=== PATIENT | female | born 1955 | race Caucasian/White ===

== ENCOUNTER 2023-03-05 13:33 | Outpatient (CLI) | payer MEDICARE, SELFPAY ==
--- NOTE | ~2023-03-05 | MR_ITS ---
EXAMINATION: MR brain/brain stem wo/w con DATE: 03/05/2023 14:25 INDICATION: Syncope. TECHNIQUE: Magnetic resonance imaging (MRI) of the brain and brainstem was performed without and with 18 mL MultiHance intravenous contrast. COMPARISON: Brain MRI 12/27/2017 FINDINGS: There is no intracranial hemorrhage, acute infarction, or abnormal intracranial mass lesion . The ventricles are normal in size. The orbits are normal. The paranasal sinuses are clear. There i s a small left mastoid effusion. IMPRESSION: 1. Normal brain. Reviewed, dictated and finalized at location E. IMPRESSION: 1. Normal brain.
--- NOTE | ~2023-03-05 | US_ITS ---
EXAMINATION: US carotid duplex BI DATE: 03/05/2023 14:51 INDICATION: Syncope and collapse TECHNIQUE: Grayscale, color Doppler, and pulsed Doppler images of the cervical carotid arteries were obtained. The degree of vessel stenosis is placed in one of the following categories: normal, <50%, 5 0-69%, >=70% but less than near-occlusion, near-occlusion, or total occlusion. Note that percent sten osis relative to normal distal artery lumen diameter is indirectly measured from velocity measurement s as described by Felipe, et al. Radiology 2003; 229:340-346. COMPARISON: None. FINDINGS: RIGHT: The right common carotid artery (CCA) peak systolic velocity (PSV) is 144 cm/s. The right internal ca rotid artery (ICA) PSV is 117 cm/s. The right ICA end-diastolic velocity (EDV) is 46 cm/s. The right ICA/CCA PSV ratio is 0.8. Grayscale and color Doppler images yield an estimate of <50% diameter reduc tion from plaque in the ICA. The external carotid artery (ECA) PSV is 95 cm/s. There is antegrade mario w in the right vertebral artery. LEFT: The left CCA PSV is 112 cm/s. The left ICA PSV is 122 cm/s. The left ICA EDV is 45 cm/s. The left ICA /CCA PSV ratio is 1.1. Grayscale and color Doppler images yield an estimate of <50% diameter reductio n from plaque in the ICA. The ECA PSV is 99 cm/s. There is antegrade flow in the left vertebral arter y. IMPRESSION: 1. <50% stenosis in the right internal carotid artery. 2. <50% stenosis in the left internal carotid artery. Reviewed, dictated and finalized at location A.
== END 2023-03-05 13:34 | disposition home or self-care (01) ==
PROVIDERS: PCP Family Medicine; Visit Provider Family Medicine
DX: R55 Syncope and collapse (principal); I65.23 Occlusion and stenosis of bilateral carotid arteries
CPT/HCPCS: 70553; 93880; A9577

== ENCOUNTER 2023-03-12 13:34 | Outpatient (CLI) | payer MEDICARE, SELFPAY ==
--- NOTE | 2023-03-12 13:42 | ECG_ITS ---
Measurements Intervals [place] Rate: 55 P: 61 LA: 161 QRS: 10 QRSD: 82 T: 20 QT: 408 QTc: 393 Interpretive Statements SINUS BRADYCARDIA BASELINE WANDER- III BORDERLINE ECG COMPARED TO ECG 11/06/2019 14:26:40 SINUS BRADYCARDIA NOW PRESENT Electronically Signed On 03-12-2023 14:22:22 CDT by Odell Gandhi D.O.
== END 2023-03-12 13:35 | disposition home or self-care (01) ==
LOC: ANHCARD 13:37
PROVIDERS: PCP Family Medicine; Visit Provider Family Medicine
DX: R55 Syncope and collapse (principal); R94.31 Abnormal electrocardiogram [ECG] [EKG]
CPT/HCPCS: 93005

== ENCOUNTER 2024-02-23 16:03 | Emergency (ER) | payer MEDICARE, SELFPAY ==
--- NOTE | ~2024-02-23 | XR_ITS ---
EXAMINATION: XR ankle LT min 3V DATE: 02/23/2024 17:10 INDICATION: Medial and posterior left ankle pain. TECHNIQUE: 4 views of left ankle were obtained. COMPARISON: None. FINDINGS: There is a transverse fracture of medial malleolus. The distal fracture fragment demonstrat es 2 mm lateral displacement. There is an oblique fracture of distal fibula with medial aspect of the fracture line at the level of the tibial plafond. The distal fracture fragment demonstrates 3 mm pos terior displacement. There is a fracture of posterior malleolus with 1 mm proximal displacement of th e posterior fracture fragment. There is mild midfoot osteoarthritis. There is enthesophytes at the po sterior and plantar aspects of calcaneal tuberosity. Ankle soft tissue swelling is noted. IMPRESSION: 1. Trimalleolar ankle fracture. Reviewed, dictated and finalized at location E.
[2024-02-23 16:16] VITALS: BP 128/75; PULSE 65; RESP 16; TEMP 36.6; O2SAT 97
--- NOTE | 2024-02-23 16:44 | ED.FALL ---
HPI - Fall General Chief Complaint: Fall Stated Complaint: fall Time Seen by Provider: 02/23/24 16:44 Focused HPI: Kristen is a 68-year-old female patient presenting to the emergency room today with complaints of left ankle pain. She reports she fell and twisted her left ankle. Is reporting the pain to the medial and posterior left ankle. Denies hitting her head or any loss of consciousness. General: Well-developed, obese, in no apparent distress Head: Normocephalic, atraumatic. Cardio: Regular rate and rhythm, s1 and s2 normal, no murmur appreciated. Resp: Clear to auscultation bilaterally, no rhonchi, rales, wheezing or rubs. Musculoskeletal: No deformity, tender to palpation over the posterior and medial ankle, pain with valgus and varus testing, pain with plantar flexion and dorsal flexion, limited range of motion due to pain, mild-moderate swelling when compared to the right, muscle strength strong and equal, peripheral pulse strong, no cyanosis, sitting in a wheelchair Patient screened in triage and initial orders placed. Additional care and disposition to be based upon diagnostic testing and treatment. Source: patient Mode of arrival: ambulatory Limitations: no limitations Related Data Home Medications Medication Instructions Recorded Confirmed hydrocodone 5 mg-acetaminophen 300 1 tablet PO BID PRN 09/11/19 11/23/23 mg tablet cetirizine 10 mg capsule (Zyrtec) 10 mg PO DAILY PRN 02/18/23 11/23/23 acamprosate 333 mg tablet,delayed 333 mg PO TID 11/23/23 11/23/23 release duloxetine 30 mg capsule,delayed 30 mg PO DAILY 11/23/23 11/23/23 release gabapentin 300 mg capsule 300 mg PO TID 11/23/23 11/23/23 omega 0-hat-szt-fish oil 1,000 mg 1 cap PO DAILY 11/23/23 11/23/23 (120 mg-180 mg) capsule (Fish Oil) Allergies Allergy/AdvReac Type Severity Reaction Status Date / Time Penicillins Allergy Unknown HIVES Verified 02/23/24 16:19 Review of Systems Review of Systems: Pertinent positives per HPI. Patient denies any fever, chills, rash, headache, visual changes, dizziness, cough, runny nose, sore throat, shortness of breath, chest pain, palpitations, nausea, vomiting, diarrhea, constipation, abdominal pain, or any urinary issues. [facility] Past Medical History Medical History Asthma Cholelithiases HTN (hypertension) Hypothyroid Obesity Renal calculus or stone Rosacea Vitamin D deficiency Surgical History Surgical History H/O gastric bypass H/O: hysterectomy Family History Family History Father Cerebrovascular accident, Onset Age: 79 Patient's father is , Onset Age: 79 Mother Family history of heart disease in male family member before age 55, Onset Age: 87 Social History Social History Smoking packs per day: 2 Smoking cigarettes per day: 40.0 Years smoked: 30 Smoking pack-years: 60.00 Smoking status: Former smoker Second hand tobacco smoke exposure: No Smoking end date: 11/08/11 Alcohol intake: current Alcohol use details: rare Substance use: never Substance use type: does not use Do You Feel Safe in your Home?: Yes Lack of Transportation: No Lack of Food: Never True Current Housing: I Have Housing Concerned About Future Housing: No Difficulty Paying Gas/Electric Bills: No Difficulty Paying for Meds: No Currently Unemployed: No Education: High School Diploma/GED Difficulty w/ Childcare or Family Care: No Living arrangements: with family Occupation/Education: retired Gender identity (if verbalized by the patient): Female Sexual Orientation (if Verbalized by the Patient): Straight or Heterosexual Spiritual care concerns: No Agree to blood products: Yes Comments At the dayron
[2024-02-23 17:40] VITALS: BP 139/85; PULSE 71; RESP 15; TEMP 36.8; O2SAT 99
--- NOTE | 2024-02-23 18:17 | PC.NURSE ---
after splint application pt attempted walking with a walker and NOT bearing any weight. pt did this very well without assistance
[2024-02-23 18:55] VITALS: BP 138/86; PULSE 71; RESP 19; TEMP 36.8; O2SAT 99
== END 2024-02-23 18:55 | disposition home or self-care (01) ==
PROVIDERS: Emergency Provider Nurse Practitioner Family; PCP Family Medicine
DX: S82.852A Displaced trimalleolar fracture of left lower leg, initial encounter for closed fracture (principal); J45.909 Unspecified asthma, uncomplicated; I10 Essential (primary) hypertension; E03.9 Hypothyroidism, unspecified; E66.9 Obesity, unspecified; Z68.33 Body mass index [BMI] 33.0-33.9, adult; Z87.442 Personal history of urinary calculi; Z98.84 Bariatric surgery status; Z87.891 Personal history of nicotine dependence; Z90.710 Acquired absence of both cervix and uterus; W19.XXXA Unspecified fall, initial encounter; X50.9XXA Other and unspecified overexertion or strenuous movements or postures, initial encounter
CPT/HCPCS: 29515; 73610; 99284

== ENCOUNTER 2024-02-28 08:25 | Outpatient (CLI) | payer MEDICARE, SELFPAY ==
[2024-02-28 09:18] LABS: Anion Gap 3 mmol/L (4-12); Blood Urea Nitrogen 20 mg/dL (7-17); Carbon Dioxide 31 mmol/L (22-30); Chloride 100 mmol/L (98-107); Estimated Glomerular Filt Rate > 60; Glucose 99 mg/dL (65-110); Potassium 4.1 mmol/L (3.4-5.0); Sodium 134 mmol/L (137-145)
== END 2024-02-28 08:26 | disposition home or self-care (01) ==
PROVIDERS: Anesthesiology; PCP Family Medicine; Visit Provider Orthopaedic Surgery
DX: Z01.818 Encounter for other preprocedural examination (principal); Z79.899 Other long term (current) drug therapy
CPT/HCPCS: 36415; 80048

== ENCOUNTER 2024-03-02 00:32 | Day surgery (SDC) | payer MEDICARE, SELFPAY ==
[2024-02-24 14:01] VITALS: BMI 32.6
--- NOTE | 2024-02-24 14:18 | PC.NURSE ---
PRE-OP INSTRUCTIONS, PLEASE READ CAREFULLY Report to the Outpatient Waiting Room, entrance under the green pavilion located off [facility], at time _0600_ on date _03/02/24_. Planned Procedure Time: _0730_. Time changes happen often and if your time is changed the preop area will call you the afternoon before. - You and your visitor will be asked to self-screen and do not enter if you have any COVID symptoms. - A mask is optional within the hospital at this time. Patients may have clear liquids (water, carbonated beverages, clear teas, apple juice) until 3 hours prior to surgery (0430 AM) with a maximum of 20 ounces. - No food from midnight until time of surgery Take the following medications with a SIP of water the morning of surgery: _ESCITALOPRAM, GABAPENTIN, LEVOTHYROXINE, SYMBICORT INHALER, & RESCUE INHALER, PAIN PILL IF NEEDED_ DO NOT STOP ANY OF YOUR OTHER PRESCRIPTION MEDICATIONS PRIOR TO SURGERY ?EXCEPT THE FOLLOWING Medications to discontinue per DR. CROW - _IBUPROFEN OF NOW, Date to take last dose 02/23/25_ Medications to discontinue per ANESTHESIA -_VITAMINS/SUPPLEMENTS 3 DAYS PRIOR TO SURGERY, Date to take last dose 02/27/24_ Please no make-up, nail frisian, hairspray, perfume, deodorant, or body powder the day of surgery. No jewelry (including any body piercings) or valuables the day of surgery, leave them at home. Please take a shower or bath the night before, or the morning of, surgery with an antibacterial soap. Wear comfortable, loose fitting clothing. - Jewelry must be removed prior to entering the operating room. Rings and piercings that are not removed may be cut off. - The hospital will not accept responsibility for valuables. - Please leave all valuables, including medications, at home the day of surgery. If you are going home after surgery, a licensed armored car guard and driver must drive you home. - NO public transportation without another adult if you receive anesthesia. - We recommend that an adult stay with you for 24 hours following discharge. - We also recommend that you do not drive, make important decision, drink alcoholic beverages, or take any drugs that were not prescribed by your health care provider for at least 24 hours after your discharge time. Follow any additional instructions given to you from your surgeon. If you or anyone in your household have experienced Covid symptoms in the past week, please notify your surgeon or the nurse liaison at the phone number below for possible testing. Telephone instructions given to _PATIENT_and asked if any additional questions and then verbalized understanding. Patient advised to call surgeon office or pre surgery nurse liaison [phone] if any additional questions.
--- NOTE | 2024-03-01 16:32 | PM.IMHP ---
H&P: HPI History of Present Illness Date/Time: 03/01/24 16:32 Chief Complaint: displaced left trimalleolar ankle fracture Narrative: patient is a 68-year-old female who fell twisting her ankle suspect sustaining a mildly displaced trimalleolar ankle fracture with a long Benites B type lateral malleolus fracture with comminution that extends several inches proximal to the level of the tibial plafond and a small posterior malleolus fragment minimally displaced in a mildly displaced anterior colliculus medial malleolus fracture. Her date of injury was on 02/23/2024. Her past medical history is significant for asthma. Quit smoking 15 years ago. History of gastric bypass. She uses ibuprofen occasionally. She chronically uses hydrocodone for upper back and fibromyalgia pain. Two years ago she underwent a syncope workup. She had fainting episodes the last time 16 months ago. She had cardiac monitoring which was negative and has a history of a prior cardiac stress test prior to that and was evaluated by Dr. Gandhi patient was felt not to have significant cardiac disease. She also had an MRI scan of her brain as well as carotid ultrasound both of which were unremarkable in February 2023. Patient has no personal or family history of pulmonary embolism. Review of Systems Review of Systems: On examination she was alert and oriented pleasant female in no acute distress. Heart and lung auscultation will be documented on Day. She had intact light touch sensation but reported the slight tingling sensation on the dorsum of her foot as well as in the toes. She was able to wiggle her toes she has normal capillary refill. She had no tenderness the proximal calf and denied any other injury. She was 5 ft 4 in in height 190 lb BMI of 32.5. That was her reported height and weight. [facility] Past Medical History Medical History (Updated 02/26/24 @ 14:14 by Bernard Jean MD) Asthma Cholelithiases HTN (hypertension) Hypothyroid Obesity Renal calculus or stone Rosacea Vitamin D deficiency Surgical History Surgical History (Updated 02/25/24 @ 09:45 by Cassie Rick CMA) H/O gastric bypass H/O: hysterectomy History of appendectomy History of History of cholecystectomy History of mandibular surgery History of skin surgery Family History Family History Father Cerebrovascular accident, Onset Age: 79 Patient's father is , Onset Age: 79 Mother Family history of heart disease in male family member before age 55, Onset Age: 87 Social History Social History Smoking packs per day: 2 Smoking cigarettes per day: 40.0 Years smoked: 40 Smoking pack-years: 80.00 Smoking status: Former smoker Tobacco type: cigarettes Second hand tobacco smoke exposure: No Smoking end date: 11/08/11 Alcohol intake: current Alcohol use details: 6 BEERS, BOTTLE WINE/WEEK Substance use: never Substance use type: does not use Do You Feel Safe in your Home?: Yes Lack of Transportation: No Lack of Food: Never True Current Housing: I Have Housing Concerned About Future Housing: No Difficulty Paying Gas/Electric Bills: No Difficulty Paying for Meds: No Currently Unemployed: No Education: High School Diploma/GED Difficulty w/ Childcare or Family Care: No Living arrangements: with family Occupation/Education: retired Gender identity (if verbalized by the patient): Female Sexual Orientation (if Verbalized by the Patient): Straight or Heterosexual Spiritual care concerns: No Agree to blood products: Yes Meds Home Medications and Allergies Home Medications Medication Instructions Recorded Confirmed Type fluticasone propionate 50 2 spray intranasal DAILY #54.6 mL 11/22/19 02/26/24 Rx mcg/actuation nasal spray,suspension escitalo
[2024-03-02] VITALS (18 sets, daily range): BP systolic 103–134; BP diastolic 50–95; PULSE 64–86; RESP 14–20; TEMP 36–36.9; O2SAT 94–100
--- NOTE | ~2024-03-02 | XR_ITS ---
XR surgery orthopedic Indication: Intraoperative fixation of bimalleolar fracture with fibular sideplate and screws TECHNIQUE: Fluoroscopy used during Intraoperative fixation of bimalleolar fracture with fibular side plate and screws performed by [Bernard Jean MD] on 03/02/2024. 85 seconds of fluoroscopy with 5 fluoroscopic images captured. FINDINGS: Correlate with procedure note. IMPRESSION: Fluoroscopy used during Intraoperative fixation of bimalleolar fracture with fibular side plate and screws. Fracture fragments in anatomic alignment post reduction. Reviewed, dictated and finalized at location B. IMPRESSION: Fluoroscopy used during Intraoperative fixation of bimalleolar frac ture with fibular sideplate and screws. Fracture fragments in anatomic alignmen t post reduction.
--- NOTE | 2024-03-02 06:57 | WPDANESEPPF ---
Anes - Initial Pre Proc Eval Procedure: Operation Date: 03/02/24 07:30 Proposed Procedures p Open Reduction Internal Fixation of Left Trimalleolar Ankle Fracture - Bernard Jean MD Date/Time: 03/02/24 06:57 Surgeon: Bernard Jean MD Pre Op Diagnosis: left trimalleolar ankle fracture Patient Data Age: 68 Gender: F Height: 1.63 m Weight: 92 kg Allergies Allergy/AdvReac Type Severity Reaction Status Date / Time Penicillins Allergy Unknown HIVES Verified 02/25/24 09:42 Home Medications Medication Instructions Recorded Confirmed Type fluticasone propionate 50 2 spray intranasal DAILY #54.6 mL 11/22/19 02/26/24 Rx mcg/actuation nasal spray,suspension escitalopram oxalate 20 mg tablet 20 mg PO DAILY #30 tabs 06/30/22 03/02/24 Rx albuterol sulfate 90 mcg/actuation 1 puff inhalation Q4H PRN 02/18/23 02/26/24 Rx aerosol inhaler (ProAir HFA) shortness of breath or wheezing #54 grams budesonide-formoterol HFA 160 2 puff inhalation Q12H #1 device 02/18/23 03/02/24 Rx mcg-4.5 mcg/actuation aerosol inhaler (Symbicort) cetirizine 10 mg capsule (Zyrtec) 10 mg PO DAILY PRN Congestion 02/18/23 02/26/24 History thiamine HCl (vitamin B1) 100 mg 100 mg PO DAILY #90 tabs 02/18/23 02/26/24 Rx tablet losartan 25 mg tablet See Rx Instructions .Route 09/05/23 03/02/24 Rx .COMPLEX #90 tabs triamterene 37.5 1 cap PO DAILY #90 caps 10/12/23 02/26/24 Rx mg-hydrochlorothiazide 25 mg capsule levothyroxine 150 mcg tablet 150 mcg PO DAILY #30 tabs 11/14/23 03/02/24 Rx duloxetine 30 mg capsule,delayed 30 mg PO DAILY 11/23/23 02/26/24 History release gabapentin 300 mg capsule 600 mg PO TID 11/23/23 03/02/24 History acetaminophen 500 mg tablet 500 mg PO QID PRN Pain 02/24/24 02/26/24 History hydrocodone 7.5 mg-acetaminophen 1 tablet TID PRN Pain 02/24/24 03/02/24 History 325 mg tablet ibuprofen 200 mg tablet 800 mg PO Q6H PRN Pain 02/24/24 02/26/24 History Patient hx anesthesia problems: none Family hx anesthesia problems: none Results Review: All pre-operative results and documents have been reviewed as part of the pre-operative evaluation. [facility] Past Medical History Medical History (Updated 02/26/24 @ 14:14 by Bernard Jean MD) Asthma Cholelithiases HTN (hypertension) Hypothyroid Obesity Renal calculus or stone Rosacea Vitamin D deficiency Surgical History Surgical History H/O gastric bypass H/O: hysterectomy History of appendectomy History of History of cholecystectomy History of mandibular surgery History of skin surgery Family History Family History Father Cerebrovascular accident, Onset Age: 79 Patient's father is , Onset Age: 79 Mother Family history of heart disease in male family member before age 55, Onset Age: 87 Social History Social History Smoking packs per day: 2 Smoking cigarettes per day: 40.0 Years smoked: 40 Smoking pack-years: 80.00 Smoking status: Former smoker Tobacco type: cigarettes Second hand tobacco smoke exposure: No Smoking end date: 11/08/11 Alcohol intake: current Alcohol use details: 6 BEERS, BOTTLE WINE/WEEK Substance use: never Substance use type: does not use Do You Feel Safe in your Home?: Yes Lack of Transportation: No Lack of Food: Never True Current Housing: I Have Housing Concerned About Future Housing: No Difficulty Paying Gas/Electric Bills: No Difficulty Paying for Meds: No Currently Unemployed: No Education: High School Diploma/GED Difficulty w/ Childcare or Family Care: No Living arrangements: with family Occupation/Education: retired Gender identity (if verbalized by the patient): Female Sexual Orientation (if Verbalized by the Patient): Stra
[2024-03-02] MEDS: LACTATED RINGERS 1,000 ML 30 ML IV CONT (07:05)
[2024-03-02] MEDS: KETOROLAC 15 MG/ML VIAL (*BKC) IV PUSH ×3 (07:06→18:02)
[2024-03-02] MEDS: VANCOMYCIN 1,250 MG/NS 250 ML BAG 166.67 MG IVPB (07:06)
--- NOTE | 2024-03-02 07:14 | P.HPUP_ITS ---
History and Physical Update Update Date/Time: 03/02/24 07:14 History and Physical has been reviewed, including an updated exam of the patient. There are NO changes in the patient's condition. 2+ DP palpable. Swelling mild-mod but very soft and supple. No skin breakdown or blisters. Exten sive ecchymosis. No calf swelling. Risks, benefits, and alternatives have been discussed and questions answered. Patient agrees to proceed with procedure.
[2024-03-02] MEDS: ceFAZolin 2 GM/D5W 50 ML 2 GM/50 ML BAG IVPB (07:30)
[2024-03-02] MEDS: ceFAZolin SODIUM 1 GM VIAL (08:14)
[2024-03-02] MEDS: ceFAZolin SODIUM 1 GM VIAL IV PUSH (09:39)
--- NOTE | 2024-03-02 10:02 | W.PM.PROC2 ---
Procedure Note - Detailed Date of Procedure 03/02/24 Pre-op Diagnosis left trimalleolar ankle fracture Post-op Diagnosis Same Procedure Performed Open reduction internal fixation of left trimalleolar ankle fracture without fixation of posterior lip Surgeon Bernard Jean MD [employer] Supervisor Daniel Anesthesia General Description of Procedure Patient was brought to the operating room and general anesthesia was administered. The left ankle was thoroughly scrubbed with the chlorhexidine cloth. She was positioned with folded blanket under the buttock and the left leg prepped draped usual fashion. She received 2 g of Ancef weight based vancomycin preoperatively. Limb was exsanguinated tourniquet elevated to 300 mmHg. A 6 in longitudinal incision was made over the lateral malleolus fracture. We sought for branch of the superficial peroneal nerve but we did not identify 1 and the lateral aspect the fracture was exposed. There was a posterior thin butterfly fragment of shaft extended well proximal which was comminuted from the proximal tip of the lateral malleolus fragment which was a Benites B pattern and the anterior shaft had a long oblique pattern that could be clamped to the distal lateral malleolus fracture anatomically restoring anatomic length and rotation and a 2.0 mini frag screw was placed through a anterior gliding hole which achieved excellent purchase and interfragmentary compression. The long spike posteriorly extending up the proximal shaft remained minimally displaced and I felt it was too thin to safely try to lag that fragment and since the posterior spike was so thin this left the majority of the shaft anteriorly for placement of the plate. We chose a 7 hole 1/3 tubular locking plate from the [employer] set and this was carefully contoured applied to the fracture and we used the 3rd from proximal hole a cortical screw to suck the plate down to the surface of the bone which caused no displacement at the fracture. We placed 2 locking cortical screws in the distal lateral malleolus fracture fragment and 2 more cortical screws in the proximal shaft. One screw was over the interfragmentary screw and the 3rd from distal screw hole we left open for possible placement of a syndesmotic tight rope device. We exposed the malleolus there 1/2 inch incision. This was a small fracture involving the anterior colliculus of the medial malleolus and was oblique in the para coronal plane. We did not visualize saphenous vein or nerve but were cognizant of retractor placement and we exposed the medial and anterior surface of the distal tibia at the fracture site so that we could visualize perfect anatomic reduction which was stabilized with a towel clip style bone clamp and a single guide pin inserted from anterior distal to proximal posterior perpendicular fracture and we confirmed proper placement the guide pin under fluoroscopic AP lateral views and placed a 36 mm partially-threaded long threaded cannulated screw without difficulty which achieved excellent purchase on interfragmentary compression and the fracture line was not visible under fluoro. Finally we studied the posterior malleolus fragment which was displaced only about a mm before surgery and this reduced very nicely essentially anatomically. It was a smaller thinner fragment and we left this alone. Tourniquet was released at 88 minutes. We then carefully tested the syndesmosis initially with a bone clamp on the distal fibular shaft and then with a laterally directed push on the foot and there was absolutely no widening of medial clear space or syndesmotic space on the stress views threaded not feel that a syndesmotic tightrope was indicated and we placed another locking screw in the 3rd from most distal hole of the plate. The wound was again irrigated with Ancef solution closed with 3-0 subcutaneous Vicryl and glue on both sides and a well-padded posterior splint was applied the patient transferred postop recovery ro
[2024-03-02] MEDS: fentaNYL CITRATE INJ (*CRX) 100 MCG/2 ML VIAL 25 MCG IV PUSH ×7 (10:35→11:07)
[2024-03-02] MEDS: oxyCODONE HCL (*CRX) 5 MG TAB IR PO ×4 (11:16→20:47)
--- NOTE | 2024-03-02 12:14 | PC.NURSE ---
Returned from OR per [stretcher at 1200 wit ]. Report received from [Erika ].
[2024-03-02] MEDS: GABAPENTIN 300 MG CAPSULE 600 MG PO ×2 (12:36→18:01)
[2024-03-02] MEDS: ACETAMINOPHEN 500 MG TABLET 1000 MG PO ×3 (12:37→23:23)
[2024-03-02] MEDS: SODIUM CHLORIDE 0.9% IV 1,000 ML 125 ML IV CONT (12:37)
--- NOTE | 2024-03-02 15:06 | PM.IMCN ---
Assessment and Plan Assessment and plan (1) Trimalleolar fracture of left ankle: Qualifiers: Encounter type: initial encounter Fracture type: closed Qualified Code(s): S82.852A - Displaced trimalleolar fracture of left lower leg, initial encounter for closed fracture Code(s): S82.852A - Displaced trimalleolar fracture of left lower leg, initial encounter for closed fracture Status: Acute Assessment and Plan: Underwent an open reduction internal fixation left trimalleolar ankle fracture without fixation of posterior lip with Ted SANTO on 03/02/24. - ambulate with assistance and up to chair - non-weightbearing to LLE and continue to elevate extremity to control swelling - use IS - neurovasc checks - see order for intervals - SCDs - resume diet - pain management: Tylenol, morphine, oxycodone - zofran PRN for nausea - monitor labs in AM - CBC and BMP - bowel regimen: docusate/senna, polyethylene glycol - maintenance fluids: NS 125 mL/hr - hydroxyzine PRN for itching - prophylactic atb - Ancef x3 - poor pain control causing insomnia, 1 time dose of 1 mg p.o. of Valium (2) HTN (hypertension): Code(s): I10 - Essential (primary) hypertension Status: Acute Assessment and Plan: - chronic, currently 134/73 - continue home medications: losartan 25 mg, triamterene/hctz 37.5/25 mg - monitor Plan Underwent surgical management of a left trimalleolar ankle fracture today, 03/02. No immediate complications. Home Meds/Chronic Conditions - OTC/vitamins: continuing Thiamine 100 mg daily, Flonase daily, Claritin 10 mg daily as needed Tylenol. Holding ibuprofen. - asthma: Continue albuterol and Advair - fibromyalgia: Continue gabapentin, hold hydrocodone-acetaminophen. - anxiety: hold escitalopram and continue duloxetine Diet: heart healthy GI Prophylaxis: not currently indicated DVT Prophylaxis: SCDs Lines: peripheral Code Status: full code HPI Date of Consult Consult date: 03/02/24 Requesting Physician: Bernard Jean MD Primary Care Provider: Vannesa Bragg MD Consult Narrative Reason for consult: Medical Managment Narrative: 68 y/o F presented here for an open reduction internal fixation of left trimalleolar ankle fracture with PMH of HTN, hypothyroidism, vitamin D deficiency, kidney stones, former smoker, and asthma. Patient originally presented on 02/23/24 to [place] ED for further evaluation of left ankle pain after she fell and twisted her ankle that day. X-ray of the left ankle showed a trimalleolar fracture with distal fracture fragments demonstrated 2 mm lateral displacement and an oblique fracture of the distal fibula with medial aspect of the fracture line at the level of the tibial plafond and, the distal fracture fragment demonstrates 3 mm posterior displacement, fracture of the posterior malleolus with 1 mm proximal displacement of the posterior fragment. Case was discussed with Ortho, plan for posterior OCL placement, nonweightbearing, and follow up outpatient for surgical management. Patient followed up outpatient and planned for surgical management today, 03/02. Reports poor pain control at present. No post-operative nausea, vomiting, or confusion. Patient has knee walker/scooter for when she is discharged home. Preop labs/imaging: creatinine 0.7 and GFR >60, glucose 99, XR left ankle showed trimalleolar ankle fracture. VS upon arrival: 98.2? F, HR 64, RR 16, 127/79, and 99% on RA. Review of Systems Review of Systems: All systems reviewed & are unremarkable except as noted in HPI and below PMFSH Past Medical History Medical History Anxiety Asthma Cholelithiases Fibromyalgia GERD (gastroesophageal reflux disease) Herpes zoster without complication HLD (hyperlipidemia) HTN (hypertension) Hypothyroid Mild single current episode of major depressive disorder Obesity KISHA (obstructive sleep apnea)
[2024-03-02] MEDS: MORPHINE SULFATE (*CRX) 2 MG/ML INJ IV PUSH (15:12)
[2024-03-02] MEDS: ceFAZolin 1 GM/NS 50 ML 1 GM/50 ML BAG IVPB (18:01)
[2024-03-02] MEDS: ASPIRIN 81 MG CHEWABLE TABLET PO (18:02)
[2024-03-02] MEDS: VANCOMYCIN 1,000 MG/NS 250 ML 1,000 MG/250 ML BAG 250 MG IVPB (18:41)
[2024-03-02] MEDS: FLUTICASONE/SALMETEROL 115-21 MCG INHALER 1 PUFF 2 PUFF INHALATION (20:58)
[2024-03-02] MEDS: diazePAM (*CRX) 2 MG TABLET 1 MG PO (23:22)
[2024-03-03 00:12] VITALS: BP 104/47; PULSE 65; RESP 20; TEMP 36.7; O2SAT 99
[2024-03-03] MEDS: oxyCODONE HCL (*CRX) 5 MG TAB IR PO ×6 (00:15→12:47)
[2024-03-03] MEDS: ceFAZolin 1 GM/NS 50 ML 1 GM/50 ML BAG IVPB ×2 (00:17→09:37)
[2024-03-03] MEDS: MORPHINE SULFATE (*CRX) 2 MG/ML INJ IV PUSH (03:38)
[2024-03-03 03:40] VITALS: BP 123/54; PULSE 70; RESP 16; TEMP 36.2; O2SAT 100
[2024-03-03] MEDS: LEVOTHYROXINE SODIUM 150 MCG TABLET PO (05:13)
[2024-03-03] MEDS: ACETAMINOPHEN 500 MG TABLET 1000 MG PO ×2 (05:14→12:47)
[2024-03-03] MEDS: VANCOMYCIN 1,000 MG/NS 250 ML 1,000 MG/250 ML BAG 250 MG IVPB (06:10)
[2024-03-03 06:45] LABS: Hematocrit 33.5 % (37.0-47.0); Hemoglobin 10.4 g/dL (12.0-15.0); Mean Corpuscular Hemoglobin 31.1 pg (26-34); Mean Corpuscular Volume 100.3 fl (80-100); Mean Platelet Volume 9.1 fl (7.4-10.4); Platelet Count Result 267 k/mm3 (150-375); Red Blood Count 3.34 M/mm3 (4.2-5.4); Red Cell Distribution Width 14.4 % (11.5-14.5); White Blood Count 8.3 K/mm3 (4.5-10.0)
[2024-03-03 06:57] LABS: Anion Gap 3 mmol/L (4-12); Blood Urea Nitrogen 18 mg/dL (7-17); Calcium 8.5 mg/dL (8.4-10.2); Carbon Dioxide 28 mmol/L (22-30); Chloride 108 mmol/L (98-107); Estimated CRCL calculation 73 ml/min; Estimated Glomerular Filt Rate > 60; Glucose 88 mg/dL (65-110); Potassium 4.1 mmol/L (3.4-5.0); Sodium 139 mmol/L (137-145)
--- NOTE | 2024-03-03 07:33 | WPDANESPN ---
Anes - Prog Note Post-Op Date/Time: 03/03/24 07:33 Cardiovascular status: normal Respiratory status: normal Airway patency: baseline Mental status: baseline Post-Op hydration status: normal Vital Signs: Last Vital Signs Temp 97.1 F L 03/03/24 03:40 Pulse 70 03/03/24 03:40 Resp 16 03/03/24 03:40 BP 123/54 L 03/03/24 03:40 Pulse Ox 100 03/03/24 03:40 O2 Del Method Nasal Cannula 03/02/24 21:14 O2 Flow Rate 2 03/02/24 21:14 FiO2 28 03/02/24 21:14 Pain Score (VAS): 0/10 I/O: Intake & Output 03/02/24 03/02/24 03/03/24 15:59 23:59 07:59 Intake Total 350 300 Balance 350 300 Laboratory Tests 03/03/24 05:39 03/03/24 05:39 03/03/24 05:39 WBC 8.3 RBC 3.34 L Hgb 10.4 L Hct 33.5 L MCV 100.3 H MCH 31.1 MCHC 31.0 L RDW 14.4 Plt Count 267 MPV 9.1 Sodium 139 Potassium 4.1 Chloride 108 H Carbon Dioxide 28 Anion Gap 3 L BUN 18 H Creatinine 0.70 Estim Creat Clear Calc 73 Estimated GFR > 60 Glucose 88 Calcium 8.5 Post-procedural complaints: none Patient Feedback: Patient satisfied with anesthetic care.
[2024-03-03 08:00] VITALS: BP 114/51; PULSE 56; RESP 16; TEMP 36.4; O2SAT 100
[2024-03-03] MEDS: FLUTICASONE/SALMETEROL 115-21 MCG INHALER 1 PUFF 2 PUFF INHALATION (08:13)
[2024-03-03 08:14] VITALS: O2SAT 100
[2024-03-03 09:08] VITALS: O2SAT 94
[2024-03-03] MEDS: LOSARTAN POTASSIUM 25 MG TABLET PO (09:36)
[2024-03-03] MEDS: ASPIRIN 81 MG CHEWABLE TABLET PO (09:36)
[2024-03-03] MEDS: GABAPENTIN 300 MG CAPSULE 600 MG PO ×2 (09:36→12:47)
[2024-03-03] MEDS: THIAMINE HCL 100 MG TABLET PO (09:36)
[2024-03-03] MEDS: TRIAMTERENE 37.5 MG/HCTZ 25 MG (MAXZIDE) TABLET 1 TAB PO (09:36)
[2024-03-03] MEDS: DULoxetine HCL 30 MG CAPSULE.DR PO (09:36)
[2024-03-03] MEDS: CELECOXIB 200 MG CAPSULE PO (09:36)
[2024-03-03] MEDS: CEFDINIR 300 MG CAPSULE PO (09:36)
--- NOTE | 2024-03-03 10:13 | PM.IMPN ---
Progress Note: A&P Assessment and Plan (1) Trimalleolar fracture of left ankle: Qualifiers: Encounter type: initial encounter Fracture type: closed Qualified Code(s): S82.852A - Displaced trimalleolar fracture of left lower leg, initial encounter for closed fracture Code(s): S82.852A - Displaced trimalleolar fracture of left lower leg, initial encounter for closed fracture Status: Acute Assessment and Plan: Underwent an open reduction internal fixation left trimalleolar ankle fracture without fixation of posterior lip with Ted SANTO on 03/02/24. - ambulate with assistance and up to chair - non-weightbearing to LLE and continue to elevate extremity to control swelling - incentive spirometer q.2 hours - neurovasc checks - see order for intervals - SCDs - resume diet - pain management: Tylenol, morphine, oxycodone - zofran PRN for nausea - bowel regimen: docusate/senna, polyethylene glycol - maintenance fluids: NS 125 mL/hr can be discontinued if patient tolerating p.o. intake - hydroxyzine PRN for itching - prophylactic atb - Ancef x3 - poor pain control causing insomnia, 1 time dose of 1 mg p.o. of Valium (2) HTN (hypertension): Qualifiers: Hypertension type: primary hypertension Qualified Code(s): I10 - Essential (primary) hypertension Code(s): I10 - Essential (primary) hypertension Status: Acute Assessment and Plan: - chronic, currently 114/51 - continue home medications: losartan 25 mg, triamterene/hctz 37.5/25 mg - monitor (3) Acute blood loss anemia: Code(s): D62 - Acute posthemorrhagic anemia Status: Acute Assessment and Plan: Hemoglobin hematocrit 14.7/43.5 August of 2023 Currently hemoglobin hematocrit 10.4/33.5 Most likely related to surgery Continue trend labs Transfuse if hemoglobin less than 7 Consider anemia labs of continues to drop Plan Underwent surgical management of a left trimalleolar ankle fracture today, 03/02. No immediate complications. Home Meds/Chronic Conditions - OTC/vitamins: continuing Thiamine 100 mg daily, Flonase daily, Claritin 10 mg daily as needed Tylenol. Holding ibuprofen. - asthma: Continue albuterol and Advair - fibromyalgia: Continue gabapentin, hold hydrocodone-acetaminophen. - anxiety: hold escitalopram and continue duloxetine Diet: heart healthy GI Prophylaxis: not currently indicated DVT Prophylaxis: SCDs Lines: peripheral Code Status: full code Time Spent With Patient Time: 41 minutes Time with patient: Greater than 35 minutes Subjective Date/time seen: 03/03/24 10:13 Interval history: 03/03/24 0815 Currently patient is lying in bed with her foot elevated. She stated that she is in little bit of pain at this time. She rates her pain currently 6/10. She also stated that she did sleep very well. She denies any chest pain, shortness a breath, nausea, vomiting, fevers, sweats, chills. She stated that she does feel okay otherwise. 03/02/24 1506 68 y/o F presented here for an open reduction internal fixation of left trimalleolar ankle fracture with PMH of HTN, hypothyroidism, vitamin D deficiency, kidney stones, former smoker, and asthma. Patient originally presented on 02/23/24 to [place] ED for further evaluation of left ankle pain after she fell and twisted her ankle that day.? X-ray of the left ankle showed a trimalleolar fracture with distal fracture fragments demonstrated 2 mm lateral displacement and an oblique fracture of the distal fibula with medial aspect of the fracture line at the level of the tibial plafond and, the distal fracture fragment demonstrates 3 mm posterior displacement, fracture of the posterior malleolus with 1 mm proximal displacement of the posterior fragment.? Case was discussed with Ortho, plan for posterior OCL placement, nonweightbearing, and follow up outpatient for surgical management. Patient followed up outpatient and pl
[2024-03-03 12:00] VITALS: BP 122/43; PULSE 80; RESP 16; TEMP 36.6; O2SAT 96
--- NOTE | 2024-03-03 12:47 | PM.DS ---
DS: Admitting Diagnosis Discharge Date 03/03/2024 Admitting Diagnosis Left trimalleolar ankle fracture DS: Discharge Diagnosis Discharge Diagnosis (1) Trimalleolar fracture of left ankle: Qualifiers: Encounter type: initial encounter Fracture type: closed Qualified Code(s): S82.852A - Displaced trimalleolar fracture of left lower leg, initial encounter for closed fracture Code(s): S82.852A - Displaced trimalleolar fracture of left lower leg, initial encounter for closed fracture Status: Acute Assessment and Plan: Patient DS: Summary Hospital Course Hospital Course: Patient underwent left trimalleolar ankle fracture open reduction internal fixation done well postoperatively. the tingling she had a the top bottom of her foot prior to surgery has resolved. She is able to ambulate nonweightbearing with a walker. DVT precautions were discussed she will take baby aspirin chewable every 12 hours for the next 6 leg elevated will call if she has swelling. She will follow-up in 2 weeks in the office for wound inspection. She has any problems in the meantime she will call She was found to have hemoglobin of 10.4 morning after surgery. Assist approximately 10 cc of blood during the surgery so her anemia is not due to intraoperative blood loss. She did have fairly extensive bruising swelling up and down her calf after her fracture acute blood-loss is from that but do not know what her pre-injury hemoglobin was and it is a little bit unusual that it would be 4 g down with ankle fracture. Last August hemoglobin was 14.4. Therefore I have recommended obtaining a CBC in 1 month following up with her primary care physician Dr. Bragg with respect to that and see if she does have any chronic low-grade anemia that warrants further investigation. Time Spent with Patient Time attestation: Total time spent providing and/or coordinating discharge services: DS: Data Data Completed and Pending Labs on day of discharge: Labs from last 24 hours 03/03/24 05:39 WBC 8.3 RBC 3.34 L Hgb 10.4 L Hct 33.5 L MCV 100.3 H MCH 31.1 MCHC 31.0 L RDW 14.4 Plt Count 267 MPV 9.1 Sodium 139 Potassium 4.1 Chloride 108 H Carbon Dioxide 28 Anion Gap 3 L BUN 18 H Creatinine 0.70 Estim Creat Clear Calc 73 Estimated GFR > 60 Glucose 88 Calcium 8.5 Discharge Plan Discharge Patient Disposition: Home, Self-Care Discharge Instructions: Do not let the splint get wet. Keep the leg elevated above the heart when possible. Call us if she develops new onset of significant swelling in the foot or calf which could indicate clot. Your receiving we will baby aspirin and every 12 hours for the next 6 weeks to give you some protection against blood clots. Your CBC showed year hemoglobin was low at 10.4. The last time it was checked was in August of 2023 at which time it was 14.7. He did not lose more than the half announced of blood during surgery so that is not the reason for the anemia you did have extensive bruising up and down your calf which would explain some of your may have had anemia prior to your fracture that was unrecognized. We will check a CBC in 1 make sure that her hemoglobin is back to normal in a like you to follow-up with Dr. Bragg for that issue Remain nonweightbearing on the left leg until advised otherwise. Stand Alone Forms: General Discharge Instructions Discharge Medications: New acetaminophen 500 mg Tablet 1,000 mg PO Q6H Qty: 100 0RF aspirin [Children's Aspirin] 81 mg Tablet,Chewable 81 mg PO BID Qty: 100 0RF cefdinir 300 mg Capsule 300 mg PO Q12HR Qty: 10 0RF celecoxib [Celebrex] 200 mg Capsule 200 mg PO DAILY@0800 Qty: 5 0RF polyethylene glycol 3350 [Miralax] 17 gram Powder In Packet 17 g PO QAM Qty: 30 0RF sennosides-docusate sodium [Senokot-S] 8.6-50 mg Tablet 2 tab PO BID Qty: 120 0RF oxycodone 5 mg Tablet 5 mg PO Q4H P
[2024-03-03] MEDS: FLUTICASONE PROPIONATE 0.05% NA SPR 16 GM BTL (*BKC) 2 SPRAY NASAL (12:48)
--- NOTE | 2024-03-03 15:22 | PC.NURSE ---
On 03/03/24, the COTTON OPENER, Marlyn, provided care and [facility] I have reviewed the COTTON OPENER's documentation and agree with the findings.
== END 2024-03-03 15:55 | disposition home or self-care (01) ==
LOC: ANHSURGERY 06:18 → ANH3MEDSUR 11:51
PROVIDERS: Student in an Organized Health Care Education/Training Program; PCP Family Medicine; Visit Provider Orthopaedic Surgery
PROC: (CPT 27822; principal; 2024-03-02 07:30)
DX: S82.852A Displaced trimalleolar fracture of left lower leg, initial encounter for closed fracture (principal); D62 Acute posthemorrhagic anemia; G89.18 Other acute postprocedural pain; W19.XXXA Unspecified fall, initial encounter; J45.909 Unspecified asthma, uncomplicated; M79.7 Fibromyalgia; I10 Essential (primary) hypertension; E03.9 Hypothyroidism, unspecified; E55.9 Vitamin D deficiency, unspecified; G47.33 Obstructive sleep apnea (adult) (pediatric); K21.9 Gastro-esophageal reflux disease without esophagitis; F32.0 Major depressive disorder, single episode, mild; F41.9 Anxiety disorder, unspecified; E66.9 Obesity, unspecified; Z68.34 Body mass index [BMI] 34.0-34.9, adult; Z79.891 Long term (current) use of opiate analgesic; Z79.51 Long term (current) use of inhaled steroids; Z98.84 Bariatric surgery status; Z87.891 Personal history of nicotine dependence
CPT/HCPCS: 27822; 36415; 80048; 85027; 94640; 97161; 99199; A9270; C1713; C1769; J0330; J0690; J1100; J1170; J1596; J1885; J2250; J2270; J2405; J2704; J3010; J3370; J7030; J7120

== ENCOUNTER 2024-05-04 09:45 | Outpatient (RCR) | payer MEDICARE, SELFPAY ==
--- NOTE | 2024-04-06 15:57 | PTOPEVAL1 ---
Assessment and note entered by Griffin Guthrie Evaluation Information Assessment Status Evaluation Diagnosis left ankle fx, left ankle pain, ORIF Onset 03/02/24 Subjective Information Pt. reports she fell on 02/24/24 fracturing her left ankle. She reports that she underwent surgery on 03/02/24 to repair the ankle. She reports she was placed in a splint after surgery. She reports that 3 weeks ago she was put in a boot. She states that she has been using a knee scooter since surgery. She states that she has not attempted axillary crutches, but has attempted to use a walker. She states that she was having trouble maintaining WB status. She states that she has mild pain on occasion but remains pain free most of the time. She states that she was very active with yardwork prior to her injury, and completed all IADL's without complication. She reports that her goal for therapy is to return to walking normal. Reported Pain Level Pain Score 0: Self Report Assessment PT Clinical Summary Pt. is a 68 year old female who enters the clinic post ORIF of the left ankle following tri malleolar fx. She presents with impaired gait, impaired ankle ROM, impaired l.e. strength and functional decline. Continued skilled PT is indicated in order to improve these areas to allow the pt. to return to normal IADL's without limitation. Plan of Care Interventions Electrical Stimulation,Gait Training,Hot Pack/Cold Pack,Manual Therapy,Neuro Re-education,Patient/ Caregiver Educati,Therapeutic Activities, Therapeutic Exercise PT Services Indicated Yes Treatment Frequency and 2x/week x 8 visits Duration These treatments will address the objective and functional deficits as defined above. The patient will be advanced safely and appropriately in order for the patient to progress towards his/her prior level of function. Additional exercises will be introduced and as well as a comprehensive home exercise program upon discharge, if needed, ?to ensure carryover of functional gains achieved in the clinic. This treatment plan has been reviewed and agreement upon by the patient.
--- NOTE | 2024-04-06 15:58 | OPREHPOC ---
Outpatient Therapy Plan of Care This is a Multidisciplinary Plan of Care that may contain components documented by all disciplines (PT, OT, and ST.) PT Problem 1 PT Problem #1 Knowledge Deficit PT Goal 1 Goal Pt. will be independent with a HEP addressing mobility congregation and proximal l.e. strength Target Visit 2 PT Problem 2 PT Problem #2 Impaired Range of Motion PT Goal 1 Goal pt. will achieve 10 degrees active left ankle dorsiflexion, 60 degrees active left ankle PF, 35 degrees active left ankle inversion and 20 degrees active left ankle eversion Target Visit 8 PT Problem 3 PT Problem #3 Impaired Gait PT Goal 1 Goal Pt. will be appropriate to advance to full WB in boot. Pt. will be able to ambulate with walker or cane for distance of 200' FWB on the left in boot indpendently Target Visit 8
--- NOTE | 2024-06-29 08:34 | PCPTNOTE ---
Mrs. Hernandez attended a total of 3 treatment sessions from 04/06/24 to 05/04/24. She cancelled her last Rx session on 05/09/24 and has failed to return to the clinic. She will be discharged from our care at this time. Refer to the last daily note for discharge status. Griffin Guthrie, MPT
== END 2024-06-22 10:22 | disposition home or self-care (01) ==
LOC: ANHPT 09:45
PROVIDERS: PCP Family Medicine; Visit Provider Orthopaedic Surgery
DX: S82.852A Displaced trimalleolar fracture of left lower leg, initial encounter for closed fracture (principal)
CPT/HCPCS: 97110; 97116; 97140; 97161

== ENCOUNTER 2024-10-19 20:24 | Emergency (ER) | payer MEDICARE, SELFPAY ==
--- NOTE | ~2024-10-19 | CT_ITS ---
EXAMINATION: CT shoulder RT wo con DATE: 10/19/2024 22:42 INDICATION: Right shoulder pain. Fall. TECHNIQUE: Computed tomography (CT) of the right shoulder was performed without intravenous contrast. Automated exposure control and iterative reconstruction technique were employed. The dose-length pro duct was 350.81 mGy-cm. COMPARISON: Right shoulder and humerus radiographs 10/19/2024 FINDINGS: There is mild scarring at right lung apex. There is a comminuted fracture of proximal right humerus. There are displaced fracture components involving the greater and lesser tuberosities and s urgical neck. The main distal fracture fragment demonstrates impaction, 9 mm medial displacement, 10 degrees lateral angulation, and 10 degrees anterior angulation. There is moderate acromioclavicular j oint osteoarthritis and mild glenohumeral joint osteoarthritis. IMPRESSION: 1. Comminuted four-part fracture of proximal right humerus. Reviewed, dictated and finalized at location A. RNED GOODS REPAIRER
--- NOTE | ~2024-10-19 | XR_ITS ---
EXAMINATION: XR humerus RT DATE: 10/19/2024 22:09 INDICATION: Right shoulder pain. Fall. TECHNIQUE: 2 views of the right humerus were obtained. COMPARISON: None. FINDINGS: There is a possible fracture of the surgical neck of proximal right humerus. The glenohumer al joint is not well profiled. There is mild acromioclavicular joint osteoarthritis. Motion artifact obscures the humerus on one of the 2 views. IMPRESSION: 1. Possible fracture of surgical neck of proximal right humerus. Right shoulder CT is recommended. Reviewed, dictated and finalized at location A. GOW MANAGER
--- NOTE | ~2024-10-19 | XR_ITS ---
EXAMINATION: XR shoulder RT min 2V DATE: 10/19/2024 22:09 INDICATION: Right shoulder pain. Fall. TECHNIQUE: 2 views of right shoulder were obtained. COMPARISON: None. FINDINGS: There is a possible fracture of the surgical neck of proximal right humerus. The glenohumer al joint is not well profiled. There is mild acromioclavicular joint osteoarthritis. IMPRESSION: 1. Possible fracture of surgical neck of proximal right humerus. Right shoulder CT is recommended. Reviewed, dictated and finalized at location A. DRY ATTENDANT
--- NOTE | ~2024-10-19 | CT_ITS ---
EXAMINATION: CT brain wo con DATE: 10/19/2024 22:45 INDICATION: Head injury. TECHNIQUE: Computed tomography (CT) of the head was performed without intravenous contrast. The mA wa s adjusted according to patient size. Iterative reconstruction technique was employed. The dose-lengt h product was 681.00 mGy-cm. COMPARISON: None FINDINGS: There is no intracranial hemorrhage, acute infarction, or abnormal intracranial mass lesion . The ventricles are normal in size. The paranasal sinuses are clear. The orbits are normal. There is a small left mastoid effusion. There is right periorbital soft tissue swelling. IMPRESSION: 1. Normal brain. Reviewed, dictated and finalized at location A. NSE CLERK IMPRESSION: 1. Normal brain.
--- NOTE | ~2024-10-19 | CT_ITS ---
EXAMINATION: CT cervical spine wo con DATE: 10/19/2024 22:45 INDICATION: Head injury. TECHNIQUE: Computed tomography (CT) of the cervical spine was performed without intravenous contrast. Automated exposure control and iterative reconstruction technique were employed. The dose-length pro duct was 529.90 mGy-cm. COMPARISON: None FINDINGS: There is mild scarring at the lung apices. There is mild kyphosis of cervical spine. There is 3 degrees levocurvature of cervical spine. Vertebral body heights are normal. There is mildly decr eased disc height at C3-C4 and C4-C5 and moderately decreased disc height at C5-C6 and C6-C7. The fol lowing disc levels are specifically discussed: C2-C3: There is no uncovertebral joint osteoarthritis. There is severe bilateral facet joint osteoart hritis. There is no neural foraminal stenosis. There is no central canal stenosis. C3-C4: There is no uncovertebral joint osteoarthritis. There is severe bilateral facet joint osteoart hritis. There is mild bilateral neural foraminal stenosis. There is no central canal stenosis. C4-C5: There is no uncovertebral joint osteoarthritis. There is severe bilateral facet joint osteoart hritis. There is mild bilateral neural foraminal stenosis. There is no central canal stenosis. C5-C6: There is severe bilateral uncovertebral joint osteoarthritis. There is severe bilateral facet joint osteoarthritis. There is mild bilateral neural foraminal stenosis. There is mild central canal stenosis. C6-C7: There is severe bilateral uncovertebral joint osteoarthritis. There is severe right and mild l eft facet joint osteoarthritis. There is mild bilateral neural foraminal stenosis. There is mild cent ral canal stenosis. C7-T1: There is no uncovertebral joint osteoarthritis. There is severe bilateral facet joint osteoart hritis. There is mild left neural foraminal stenosis. There is no central canal stenosis. IMPRESSION: 1. No fracture. 2. Moderate cervical spondylosis. Reviewed, dictated and finalized at location A. RMATION DEVELOPER
--- OUTSIDE RECORDS SUMMARY | 2024-10-19 20:27 | XMS_ITS ---
Author Organization [facility] [employer] Address [address] [place] [address] Care Team Providers Care Enterprise Manager Name Role Phone Christina Pinto Unavailable [phone] Migration, Provider Unavailable Unavailable Allergies Allergen (clinical drug ingredient) Drug/Non Drug Allergy documented on EMR Reaction Allergy Type Onset Date Status Substance with penicillin structure and antibacterial mechanism of action (substance) Penicillins Unknown Drug Allergy 12/24/2023 Active REASON FOR VISIT EMR-Micheal Medications Medication SIG (Take, Route, Frequency, Duration) Notes Start Date End Date Status Levothyroxine Sodium 150 MCG Oral 12/24/2023 Active ProAir HFA 108 (90 Base) MCG/ACT Inhalation 12/24/2023 Active Losartan Potassium 25 MG Oral 12/24/2023 Active HYDROcodone-Acetamino phen 7.5-325 MG Oral 12/24/2023 Active Gabapentin 300 MG Oral 12/24/2023 A ctive Escitalopram Oxalate 20 MG Oral 12/24/2023 Active metroNIDAZOLE 0.75 % External 12/24/2023 Active DULoxetine HCl 30 MG Oral 12/24/2023 Active risperiDONE 0.5 MG Oral 12/24/2023 Active Levothyroxine Sodium 137 MCG Oral 12/24/2023 Active Vitamin B-1 100 MG Oral 12/24/2023 Active Triamterene-HCTZ 37.5-25 MG Oral 12/24/2023 Active Gabapentin 100 MG Oral 12/24/2023 A ctive BUDESONIDE-FORMOTEROL HFA 160 MCG-4.5 MCG/ACTUATION AEROSOL INHALER *Reorder from [employer] for eRx and Interaction Alerts* 12/24/2023 Active Social History Sex Assigned At : Social History Observation Description Sex Assigned At Female Encounters Encounter Location Date Provider Diagnosis [facility] [employer] [facility] [address] [address] 03/26/2024 Provider Migration Plan Of Treatment No Information Progress Notes * RADHA TOSCANOOB:[birth year] (68 yo F)Acc No.[id number]:03/26/2024 Patient:?RADHA TOSCANO :1955???Age:68 Y???Sex:Female Address:[address] [place] [address] [place], [address] Subjective: * Chief Complaints: * ???EMR-Micheal * Medical History:? 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 * Surgical History:?Other Endo metrial ablation (98578) Appendectomy (24844) 11/08/2009Hysterectomy (26636) 11/08/2013Removal of gallbladder (21117) 11/08/2015 * Hospitalization/Major Diagno stic Procedure:? * Family History:?Mother: Alco hol abuse .?Brother: Substance abuse , Alcohol abuse .?Daughter: Anxiety disorder , Depressive disorder , Bipolar disorder .? * Social History:?Migrated Social History:?Migrated Social History: Alcohol Intake: Heavy 06/11/2023,Tobacco Years: Former smoker 06/11/2023. * Medications:?TakingDULoxetin e HCl 30 MG Capsule Delayed Release Particles Oral BUDESONIDE-FORMOTEROL HFA 160 MCG-4.5 MCG/ACTUATION AEROSOL INHALER , Notes to Pharmacist: *Reorder from [employer] for eRx and Interaction Alerts*Vitamin B-1 100 MG Tablet Oral Losartan Potassium 25 MG Tablet Oral Levothyroxine Sodium 137 MCG Tablet Oral Levothyroxine Sodium 150 MCG Tablet Oral Escitalopram Oxalate 20 MG Tablet Oral metroNIDAZOLE 0.75 % Gel External Gabapentin 100 MG Capsule Oral Triamterene- HCTZ 37.5-25 MG Capsule Oral risperiDONE 0.5 MG Tablet Oral HYDROcodone-Acetaminophen 7.5-325 MG Tablet Oral ProAir HFA 108 (90 Base) MCG/ACT Aerosol Solution Inhalation Gabapentin 300 MG Capsule Oral Taking DULoxetine HCl 30 MG Capsule Delayed Release Particles Oral Taking BUDESONIDE-FORMOTEROL HFA 160 MCG-4.5 MCG/ACTUATION AEROSOL INHALER , Notes to Pharmacist: *Reorder from [facility] for eRx and Interaction Alerts*Taking Vitamin B-1 100 MG Tablet Oral Taking Losartan Potassium 25 MG Tablet Oral Taking Levothyroxine Sodium 137 MCG Tablet Oral Taking Levothyroxine Sodium 150 MCG Tablet Oral Taking Escitalopram Oxalate 20 MG Tablet Oral Taking metroNIDAZOLE 0.75 % Gel External Taking Gabapentin 100 MG Capsule Oral Taking Triamterene- HCTZ 37.5-25 MG Capsule Oral Taking risperiDONE 0.5 MG Tablet Oral Taking HYDROcodone-Acetaminophen 7.5-325 MG Tablet Oral Taking ProAir HFA 108 (90 Base) MCG/ACT Aerosol Solution Inhalation Taking Gabapentin 300 MG Capsule Oral * Allergies:?Penicillins: John rgy - Onset Date 12/24/2023 Objective: * Vitals:? * Physical Examination:? Assessment: Plan: * Treatment: * Procedure Codes:? * true * Date:? 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
--- OUTSIDE RECORDS SUMMARY | 2024-10-19 20:27 | XMS_ITS ---
Author Organization [facility] [employer] [facility] Address [address] [place] [address] Care Team Providers Care Iron Worker Apprentice Name Role Phone Dane Pinto [phone] Social History Sex Assigned At : Social History Observation Description Sex Assigned At Female Encounters Encounter Location Date Provider Diagnosis [facility] [employer] [facility] [address] [facility] [address] [facility] [address] [place] [address] 03/29/2024 Dane Crowley Plan Of Treatment No Information Progress Notes * RADHA TOSCANOAINEDOB:[birth year] (68 yo F)Acc No.[id number]:03/29/2024 Patient:?RADHA TOSCANO Provider:?DANE CROWLEY LCSW :1955???Age:68 Y???Sex:Female D ate:03/29/2024 [address] [id number] Subjective: * Chief Complaints: * ??? * Medical History:? Objective: * Vitals:? Assessment: Plan: * Treatment: * Billing Information: * Visit Code:? * Procedure Codes:? * Sign off status: Completed true * Provider:?DANE CROWLEY LCSW Dm e:?03/29/2024 Generated for Printi ng/Faxing/eTransmitting on:?10/19/2024 08:27 PM MANAGER MEETING
--- OUTSIDE RECORDS SUMMARY | 2024-10-19 20:27 | XMS_ITS ---
Author Organization [facility] [employer] [facility] Address [address] [facility] [address] [place] [address] Care Team Providers Care Market Development Specialist Name Role Phone Christina Pinto Unavailable [phone] Migration, Provider Unavailable Unavailable REASON FOR VISIT EMR-Micheal Social History Sex Assigned At : Social History Observation Description Sex Assigned At Female Encounters Encounter Location Date Provider Diagnosis [facility] [employer] [address] [facility] [address] [place] [address] 03/25/2024 Provider Migration Plan Of Treatment No Information Progress Notes * RADHA TOSCANOAINEDOB:[birth year] (68 yo F)Acc No.[id number]:03/25/2024 Patient:?RADHA TOSCANO :1955???Age:68 Y???Sex:Female Address:[address] [place], [address] Subjective: * Chief Complaints: * ???EMR-Micheal * Medical History:? * Surgical History:? * Hospitalization/Major Diagno stic Procedure:? * Medications:? Objective: * Vitals:? * Physical Examination:? Assessment: Plan: * Treatment: * Procedure Codes:? * true * Date:? Generated for Williami abeba/Faparving/eTransmitting on:?10/19/2024 08:27 PM [employer] D[employer]ER
--- OUTSIDE RECORDS SUMMARY | 2024-10-19 20:28 | XMS_ITS | Patient Health Record ---
Author Organization [facility] As [employer] Address [address] [place] [address] Care Team Providers Care Predatory Animal Exterminator Name Role Phone Christina Pinto Unavailable [phone] MannieLyle bacon Unavailable [phone] Migration, Provider Unavailable Unavailable Reason For Referral No Information Medications Medication SIG (Take, Route, Frequency, Duration) Notes Start Date End Date Status Levothyroxine Sodium 150 MCG Oral 12/24/2023 Active Escitalopram Oxalate 20 MG 1 tablet Oral Once a day for 90 days Active Losartan Potassium 25 MG Oral 12/24/2023 Active Triamterene-HCTZ 37.5-25 MG Oral 12/24/2023 Active Gabapentin 100 MG Oral 12/24/2023 A ctive DULoxetine HCl 30 MG TAKE 1 CAPSULE BY MOUTH EVERY DAY FOR 90 DAYS for 90 Active Levothyroxine Sodium 137 MCG Oral 12/24/2023 Active BUDESONIDE-FORMOTEROL HFA 160 MCG-4.5 MCG/ACTUATION AEROSOL INHALER *Reorder from VIPTALON for eRx and Interaction Alerts* 12/24/2023 Active Vitamin B-1 100 MG Oral 12/24/2023 Active ProAir HFA 108 (90 Base) MCG/ACT Inhalation 12/24/2023 Active metroNIDAZOLE 0.75 % External 12/24/2023 Active HYDROcodone-Acetamino phen 7.5-325 MG Oral 12/24/2023 Active Gabapentin 300 MG Oral 12/24/2023 A ctive risperiDONE 0.5 MG Oral 12/24/2023 Active Social History Sex Assigned At : Social History Observation Description Sex Assigned At Female Vital Signs Heart Rate 74 /min 12/24/2023 Blood pressure diastolic 70 mm Hg 12/24/2023 Height-cm 162.56 cm 12/24/2023 Weight-kg 90.26 kg 12/24/2023 Height 64.00 in 12/24/2023 Blood pressure systolic 108 mm Hg 12/24/2023 Weight 199.00 lbs 12/24/2023 BMI 34.2 kg/m2 12/24/2023 Encounters Encounter Location Date Provider Diagnosis [facility] [address] [place] [address] 11/03/2023 Lyle Chand [facility] [address] [place] [address] 11/11/2023 Thena Mannie Alcohol dependence, uncomplicated F10.20 ; Major depressive disorder, recurrent severe without psychotic features F33.2 and Generalized anxiety disorder F41.1 [facility] [address] [place] [address] 11/11/2023 Christina Suresh [facility], [facility] [address] [place] [address] 12/21/2023 Lyle Chand [facility], [facility] [address] [place] [address] [facility] [address] [place] [address] 12/22/2023 Christina Pablo Kerwin Generalized anxiety disorder F41.1 ; Major depressive disorder, recurrent severe without psychotic features F33.2 and Alcohol dependence, uncomplicated F10.20 [facility] [address] [place] [address] 12/24/2023 Thena Mannie Major depressive disorder, recurrent severe without psychotic features F33.2 ; Alcohol dependence, uncomplicated F10.20 and Generalized anxiety disorder F41.1 [facility] [address] [place] [address] 01/27/[address] [facility], [facility] [address] [place] [address] 02/16/[address] [facility], [facility] [address] [place] [address] 03/08/2024 Lyle Chand [facility], [facility] [address] [place] [address] 03/08/2024 Christina Suresh [facility], [facility] [address] [place] [address] 03/29/2024 Christina Suresh [facility], [facility] [address] [place] [address] 11/03/2023 Provider Migration [facility], [facility] [address] [place] [address] 01/12/2024 Provider Migration [facility], [facility] [address] [place] [address] 02/09/2024 Provider Migration [facility], [facility] [address] [place] [address] 02/15/2024 Provider Migration [facility], [facility] [address] [place] [address] 02/16/2024 Provider Migration [facility], [facility] [address] [place] [address] 03/15/2024 Provider Migration [facility], [facility] [address] [place] [address] 03/22/2024 Provider Migration [facility], [facility] [address] [place] [address] 03/25/2024 Provider Migration [facility], [facility] [address] [place] [address] 03/26/2024 Provider Migration Assessments Encounter Date Diagnosis (ICD Code) Assessment Notes Treatment Notes Treatment Clinical Notes Section Notes 11/11/2023 Alcohol dependence, uncomplicated (ICD-10 - F10.20) 11/11/2023 Major depressive disorder, recurrent severe without psychotic features (ICD-10 - F33.2) 11/11/2023 Generalized anxiety disorder (ICD-10 - F41.1) 12/22/2023 Alcohol dependence, uncomplicated (ICD-10 - F10.20) 12/22/2023 Major depressive disorder, recurrent severe without psychotic features (ICD-10 - F33.2) 12/22/2023 Generalized anxiety disorder (ICD-10 - F41.1) 12/24/2023 Alcohol dependence, uncomplicated (ICD-10 - F10.20) 12/24/2023 Major depressive disorder, recurrent severe without psychotic features (ICD-10 - F33.2) 12/24/2023 Generalized anxiety disorder (ICD-10 - F41.1) Plan Of Treatment No Information Insurance Providers Payer Name Payer Address Payer Phone Subscriber Number Group Number Insured Name Patient Relationship to Insured Coverage Start Date Coverage End Date [employer] Medicare Replacemen t/Advantag e - [place] [address] [place] [id number] RADHA TOSCANO Self - patient is the insured Medical (General) History Surgical History Surgery Date(Month/Year) Other Endometrial ablation (84187) Appendectomy (30819) 11/08/2009 Hysterectomy (99098) 11/08/2013 Removal of gallbladder (24602) 6
[2024-10-19 21:21] VITALS: PULSE 57; RESP 20; TEMP 36.2; O2SAT 99
[2024-10-19 21:43] VITALS: PULSE 67; RESP 19; O2SAT 98
[2024-10-19] MEDS: HYDROmorphone HCL INJ (*CRX) 1 MG/ML SYR IM (22:15)
[2024-10-19 22:17] VITALS: BP 164/83; PULSE 69; RESP 18; TEMP 36.5; O2SAT 100
[2024-10-19 23:17] VITALS: BP 166/80; PULSE 76; RESP 14; TEMP 36.4; O2SAT 99
--- NOTE | 2024-10-19 23:17 | ED_ITS ---
HPI - Extremity Injury (Upper) General Chief Complaint: Extremity Injury, Upper Stated Complaint: right arm pain from fall Time Seen by Provider: 10/19/24 21:53 History of Present Illness HPI narrative: 68-year-old female presenting to the emergency department for evaluation of right upper extremity pain status post fall. She missed a step while walking in her garage and fell forward onto her right shoulder onto a concrete ground. She states that she had significant pain immediately in the proximal aspect right shoulder and CV subjective paresthesias in her fingers but those resolved. Denies any loss consciousness but states she also did strike her head and does have a small contusion to the right supraorbital region. No blood thinner use. Denies any headache, vision changes, nausea or vomiting. Was previously in her normal state of health. Patient states her pain is mostly in the proximal right shoulder and her legal practice manager strength and sensation are intact. No other apparent injuries to her back, other extremities, legs, thorax, abdomen. Related Data Home Medications ?Medication ?Instructions ?Recorded ?Confirmed ?Last Taken ?Type cetirizine 10 mg capsule (Zyrtec) 10 mg PO DAILY PRN Congestion 02/18/23 04/03/24 Unknown History duloxetine 30 mg capsule,delayed 30 mg PO DAILY 11/23/23 04/03/24 Unknown History release gabapentin 300 mg capsule 600 mg PO TID 11/23/23 04/03/24 03/02/24 04:30 History Allergies Allergy/AdvReac Type Severity Reaction Status Date / Time alcohol (From Mastisol Allergy Unknown Rash Verified 10/19/24 21:31 Liquid Adhesive) gum mastic (From Mastisol Allergy Unknown Rash Verified 10/19/24 21:31 Liquid Adhesive) methyl salicylate (From Allergy Unknown Rash Verified 10/19/24 21:31 Mastisol Liquid Adhesive) Penicillins Allergy Unknown HIVES Verified 10/19/24 21:31 storax (From Mastisol Liquid Allergy Unknown Rash Verified 10/19/24 21:31 Adhesive) Review of Systems Review of Systems: As reviewed above in HPI [facility] Past Medical History Medical History GERD (gastroesophageal reflux disease) HLD (hyperlipidemia) Post herpetic neuralgia Mild single current episode of major depressive disorder Herpes zoster without complication Fibromyalgia Rosacea Anxiety KISHA (obstructive sleep apnea) Asthma Vitamin D deficiency Obesity Renal calculus or stone Hypothyroid Cholelithiases HTN (hypertension) Surgical History Surgical History History of ankle surgery 03/02/24- left ankle ORIF History of skin surgery History of cholecystectomy History of appendectomy History of History of mandibular surgery H/O gastric bypass H/O: hysterectomy Family History Family History Father Cerebrovascular accident, Onset Age: 79 Patient's father is , Onset Age: 79 Mother Family history of heart disease in male family member before age 55, Onset Age: 87 Social History Social History Smoking packs per day: 2 Smoking cigarettes per day: 40.0 Years smoked: 40 Smoking pack-years: 80.00 Smoking status: Former smoker Tobacco type: cigarettes Second hand tobacco smoke exposure: No Smoking end date: 11/08/11 Alcohol intake: current Drinks per week: 3 Alcohol use details: 6 BEERS, BOTTLE WINE/WEEK Substance use: current Substance use type: marijuana Last use: 02/25/24 Do You Feel Safe in your Home?: Yes Lack of Transportation: No Lack of Food: Never True Current Housing: I Have Housing Concerned About Future Housing: No Difficulty Paying Gas/Electric Bills: No Difficulty Paying for Meds: No Currently Unemployed: No Education: Decline to Answer Difficulty w/ Childcare or Family Care: No Living arrangements: with family Occupation/Education: retired Gender identity (if verbalized by the patient): Female Sexual Orientation (if Verbalized by the Patient): Straight or Heterosexual Spiritual care concerns: No Agree to blood products: Yes Exam Narrative: GENERAL: [Well-appearing, well-nourished, and in no acute distress.] HEAD: Normocephalic, supraorbital hematoma in the right aspect of her lateral face. No bleeding. Full range of motion of the head neck. EYES: [PERRLA and EOMI.] ENT: Nares clear, no rhinorrhea or epistaxis. Mucous membranes moist. NECK: Supple. CHEST: [Clear to auscultation. No respiratory distress.] HEART: [Regular rate and rhythm]. No murmur heard. [Normal peripheral pulses.] ABDOMEN: [Soft, nondistended], [nontender], [No rigidity or guarding] EXTREMITIES: Tenderness to palpation over the proximal right shoulder, range of motion is limited secondary to pain but flexion extension at the elbow, legal practice manager strength are full. Able to shrug her shoulders equally. No appreciable step- offs or deformities or any overlying skin changes SKIN: Warm, dry, no rash. NEURO: [No focal deficits]. Alert and oriented [x3.] Full legal practice manager strength, no sensation changes or paresthesias presently PSYCH: [Normal mood and affect.] Course Vital Signs Vital signs: Vital Signs Temperature 36.2 C L 10/19/24 21:21 Pulse Rate 57 L 10/19/24 21:21 Respiratory Rate 20 10/19/24 21:21 Pulse Oximetry 99 10/19/24 21:21 Oxygen Delivery Room Air 10/19/24 21:21 Temperature 36.2 C L 10/19/24 21:21 Pulse Rate 57 L 10/19/24 21:21 Respiratory Rate 20 10/19/24 21:21 Pulse Oximetry 99 10/19/24 21:21 Oxygen Delivery Room Air 10/19/24 21:21 MDM - Extremity Injury (Upper) MDM Narrative Medical decision making narrative: 68-year-old female presenting for a injury wall falling after missing a step in her garage. She complains of right-sided shoulder pain. She does have evidence of a supraorbital and right-sided hematoma broke her right eye but no active bleeding, no other obvious injuries to her head or neck. She has full range of motion of the head neck. Her right-sided shoulder is tender to palpation and difficult to move without causing significant pain but she has full range of motion distally at the elbow and wrist. Full strength and sensation throughout both arms and legs. Able to shrug her shoulders. No step-offs deformities in her back. Given her age and risk factors a CT of the head and cervical spine wa s ordered as well as x-rays of the right upper extremity. I independently reviewed the x-ray images and given the read by radiology with possible proximal humeral fracture with recommendations for advanced imaging such as a CT a noncontrast CT of the right upper extremity was also ordered at this time. She was treated with symptomatic control of her pain with dilaudid intramuscular injection and that oral [place] and Robaxin. Patient was re-evaluated frequently had significant improvement her pain. The shoulder CT shows a comminuted 4 part proximal humeral fracture of the right- sided. The CT head and CT cervical spine showed no acute fractures or subluxations. Given patient's pain improvement and proximal humeral fracture on the right side I believe she can be safely discharged with orthopedics follow-up on outpatient basis. She has a orthopedic doctor that she already sees for her ankle injuries previously and will be able to call and schedule appointment starting tomorrow. She was placed in a shoulder immobilizer and sling on the right upper extremity and given expected management instructions with pain control medications prescribed. Encouraged her to follow-up on a short-term basis with the orthopedic surgeon or if she experiences any worsening pain, development of persistent paresthesias or numbness or any other concerns that she should be re-evaluated at that time. Patient verbalized understanding these instructions and stable for discharge home at this time and family agreeable to plan of care going forward. Medical Records Attestation: I reviewed the patient's medical records. Imaging Data Attestation: I personally reviewed and interpreted this imaging study as follows: My impression: Impressions Shoulder X-Ray 10/19/24 22:10 IMPRESSION: 1. Possible fracture of surgical neck of proximal right humerus. Right shoulder CT is recommended. Humerus X-Ray 10/19/24 22:12 IMPRESSION: 1. Possible fracture of surgical neck of proximal right humerus. Right shoulder CT is recommended. Shoulder CT 10/19/24 22:42 IMPRESSION: 1. Comminuted four-part fracture of proximal right humerus. Head CT 10/19/24 22:46 IMPRESSION: 1. Normal brain. Cervical Spine CT 10/19/24 22:48 IMPRESSION: 1. No fracture. 2. Moderate cervical spondylosis. Discharge Plan Discharge Clinical Impression: Fracture of proximal humerus, CHI (closed head injury) Patient Disposition: Home, Self-Care Condition: Stable Instructions: Antibiotic Form, Head Injury (DC), Proximal Humerus Fracture (ED) Additional Instructions: Call your orthopedic doctor tomorrow morning to schedule an outpatient follow-up appointment. Return at any time with any new or worsening concerns. We will send you home with pain medications and muscle relaxers. Maintain your sling for comfort and pain control Patient Language: Turkmen Prescriptions: New hydrocodone-acetaminophen 7.5-325 mg tablet 1 tablet PO Q8H PRN (Reason: pain) 3 Days Qty: 14 0RF methocarbamol 750 mg tablet 750 mg PO TID PRN (Reason: pain) Qty: 20 0RF No Action fluticasone propionate 50 mcg/actuation spray,suspension 2 spray NASAL DAILY Qty: 54.6 3RF Rx Instructions: administer into each nostril Zyrtec 10 mg capsule 10 mg PO DAILY PRN (Reason: Congestion) albuterol sulfate [ProAir HFA] 90 mcg/actuation HFA aerosol inhaler 1 puff INHALATION Q4H PRN (Reason: shortness of breath or wheezing) Qty: 54 3RF duloxetine 30 mg capsule,delayed release(DR/EC) 30 mg PO DAILY Patient Comments: TAKES AT HS gabapentin 300 mg capsule 600 mg PO TID losartan 25 mg tablet See Rx Instructions .ROUTE .COMPLEX Qty: 90 2RF Dose Instruction: TAKE ONE TABLET BY MOUTH DAILY Rx Instructions: TAKE ONE TABLET BY MOUTH DAILY acetaminophen 500 mg Tablet 1,000 mg PO Q6H Qty: 100 0RF aspirin [Children's Aspirin] 81 mg Tablet,Chewable 81 mg PO BID Qty: 100 0RF escitalopram oxalate 20 mg tablet 20 mg PO DAILY Qty: 30 6RF Rx Instructions: QAM triamterene-hydrochlorothiazid 37.5-25 mg capsule 1 cap PO DAILY Qty: 90 3RF Symbicort 160-4.5 mcg/actuation HFA aerosol inhaler 2 puff INHALATION Q12H Qty: 1 6RF thiamine HCl (vitamin B1) 100 mg tablet 100 mg PO DAILY Qty: 90 3RF levothyroxine 150 mcg tablet 150 mcg PO DAILY Qty: 30 3RF Follow-up/Referrals: Vannesa Bragg MD [Primary Care Provider] - Time of Disposition: 23:26
[2024-10-20] MEDS: methocarbamoL 750 MG TABLET PO (00:28)
[2024-10-20] MEDS: HYDROcodone/acetaminophen (*CRX) 10-325 MG TABLET 1 TAB PO (00:28)
[2024-10-20 00:30] VITALS: BP 160/58; PULSE 61; RESP 14; O2SAT 100
== END 2024-10-20 02:50 | disposition home or self-care (01) ==
PROVIDERS: Emergency Provider Student in an Organized Health Care Education/Training Program; PCP Family Medicine
DX: S42.241A 4-part fracture of surgical neck of right humerus, initial encounter for closed fracture (principal); S00.11XA Contusion of right eyelid and periocular area, initial encounter; J45.909 Unspecified asthma, uncomplicated; I10 Essential (primary) hypertension; E78.5 Hyperlipidemia, unspecified; E03.9 Hypothyroidism, unspecified; E55.9 Vitamin D deficiency, unspecified; E66.9 Obesity, unspecified; Z68.33 Body mass index [BMI] 33.0-33.9, adult; G47.33 Obstructive sleep apnea (adult) (pediatric); M79.7 Fibromyalgia; K21.9 Gastro-esophageal reflux disease without esophagitis; Z98.84 Bariatric surgery status; Z87.891 Personal history of nicotine dependence; Z87.442 Personal history of urinary calculi; Z90.49 Acquired absence of other specified parts of digestive tract; Z90.710 Acquired absence of both cervix and uterus; M47.812 Spondylosis without myelopathy or radiculopathy, cervical region; W10.9XXA Fall (on) (from) unspecified stairs and steps, initial encounter
CPT/HCPCS: 70450; 72125; 73030; 73060; 73200; 96372; 99284; A4565; A9270; J1171

== ENCOUNTER 2025-07-19 12:30 | Outpatient (RCR) | payer MEDICARE, SELFPAY | END 2025-09-13 14:33 | disposition home or self-care (01) | LOC: ANHCPREHAB 12:30 | PROVIDERS: PCP Family Medicine | DX: Z98.61 Coronary angioplasty status (principal) | CPT/HCPCS: 93798 ==

== ENCOUNTER 2025-10-10 01:40 | Day surgery (SDC) | payer MEDICARE, SELFPAY ==
[2025-10-02 08:52] VITALS: BMI 27.4
--- NOTE | 2025-10-02 09:06 | PC.NURSE ---
Spoke with patient regarding medication Brilinta. Patient verbalizes understanding that the last dose is to be taken on 10/02/25 and the Endoscopist will instruct them when to restart after the procedure.
--- OUTSIDE RECORDS SUMMARY | 2025-10-10 01:43 | XMS_ITS | Encounter Summary ---
Author Organization [facility] Address [address] [facility] [address] [place] [address] Phone Care Team Providers Care Quality Manager Name Role Phone Vannesa Bragg MD Primary Care Provider [phone] Genaro Mccurdy MD Unavailable Alanis Gaxiola [facility] Unavailable [phone] Encounter Details Date Type Department Care Team (Late st Contact Info) Description 08/20/2025 Results Follow-Up [facility] Medicine Urology [address] [facility] [address] [place] [address] Genaro Mccurdy MD [address] [facility] [place] [address] Urine culture Urine, clean voided Social History Tobacco Use Types Packs/Day Years Used Date Smoking Tobacco: Former Cigarettes 2 36 1 974 - 2010 Smokeless Tobacco: Never Alcohol Use Standard Drinks/Week Comments Yes 1 (1 standard drink = 0.6 oz pur e alcohol) social Social Connection and Isolation Panel Answer Date Recorded Frequency of Communication with Friends and Fami ly Twice a week 08/13/2025 Frequency of Social Gatherings with Friends and Family Twice a week 08/13/2025 How often do you attend holiness or jewish serv ices? Never 08/13/2025 Do you belong to any clubs o r organizations such as holiness groups, unions, fraternal or athletic groups, or school groups? No 08/13/2025 Attends Club or Organization Meetings Never 08/13/2025 Are you , , di vorced, , never , or living with a partner? 08/13/2025 AUDIT-C Answer Date Recorded Q1: How often do you have a drink containing alc ohol? 2-4 times a month 08/13/2025 Q2: How many drinks containi ng alcohol do you have on a typical day when you are drinking? 1 or 2 08/13/2025 Q3: How often do you have si x or more drinks on one occasion? Never 08/13/2025 Overall Financial Resource Strain (CARDIA) Answe r Date Recorded How hard is it for you to pa y for the very basics like food, housing, medical care, and heating? Not hard at all 08/13/2025 Hunger Vital Sign Answer Date Recorded Within the past 12 months, y ou worried that your food would run out before you got the money to buy more. Never true 08/13/20 25 Within the past 12 months, t he food you bought just didn't last and you didn't have money to get more. Never true 08/13/2025 PRAPARE - Transportation Answer Date Re corded In the past 12 months, has l ack of transportation kept you from medical appointments or from getting medications? No 04/2025 In the past 12 months, has l ack of transportation kept you from meetings, work, or from getting things needed for daily living? No 08/13/2025 Housing Stability Vital Sign Answer Dm e Recorded In the last 12 months, was t here a time when you were not able to pay the mortgage or rent on time? No 08/13/2025 Number of Times Moved in the Last Year 0 08/13/2025 Homeless in the Last Year No 2024 [facility] Utilities Answer Date Recorded In the past 12 months has th e electric, gas, oil, or water company threatened to shut off services in your home? No 08/13/2025 Personal Safety Answer Date Recorded Have you ever been in or are you currently in a harmful physical or emotional relationship or is someone making you feel afraid or unsafe? 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 However, she is high risk and has recurrent complex UTIs. Will use last positive cultures for prophylaxis purposes. Will start antifungal treatment in preparation for surgery. Genaro Mccurdy MD documented in this encounter Plan of Treatment Not on file documented as of this encounter Visit Diagnoses Not on filedocumented in this encounter Care Teams Quality Manager Relationship Specialty Start Date End Date Vannesa Bragg MD PCP - General 06/02/12 Genaro Mccurdy MD [address] [facility] [place] [address] Consulting Physician Urology 07/27/25 Alanis Gaxiola LCSW [address] [facility] [phone] [place] [address] [facility] Outpatient Computer Software Engineer 08/14/25 09/04/25 documented as of this encounter
--- OUTSIDE RECORDS SUMMARY | 2025-10-10 01:43 | XMS_ITS | Clinical Summary ---
Author Organization [facility] Address [address] [place] [id number] Care Team Providers Care Rn Building Name Role Phone Vannesa Bragg MD Primary Care Provider Genaro Mccurdy MD Unavailable [phone] Allergies Active Allergy Reactions Criticality Noted Date Comments Gum Morris Rash Medium 10/19/2024 Glue for surgery Methyl Salicylate Rash Medium 10/19/2024 Unknown if this caused the rash Penicillins Hives,Swelling High 05/03/2017 As a child Storax Rash Medium 10/19/2024 Medications fluticasone propionate (FLONASE) 50 mcg/actuation nasal sprayIndications :Allergic Conjunctivitis,A llergic Rhinitis Administer 2 sprays into each nostril daily as needed for rhinitis or allergies Active cetirizine (ZyrTEC) 10 mg tabletIndication s:Seasonal Allergic Rhinitis Take 1 tablet (10 mg total) by mouth every morning Active thiamine (VITAMIN B1) 100 mg tabletIndication s:supplement Take 1 tablet (100 mg total) by mouth daily before breakfast 4 Active levothyroxine (SYNTHROID) 125 mcg tabletIndication s:hypothyroidism Take 1 tablet (125 mcg total) by mouth every morning Active omeprazole 20 mg tablet,delayed release (DR/EC)Indicatio ns:Treatment of Non-Bleeding Gastric Disorder,gerd Take 1 tablet (20 mg total) by mouth daily before breakfast Active sertraline (ZOLOFT) 100 mg tabletIndication s:Anxiety with Depression Take 1 tablet (100 mg total) by mouth nightly Active ticagrelor (BRILINTA) 90 mg tabletIndication s:Myocardial Reinfarction Prevention,s/p CO 05/2025 Take 1 tablet (90 mg total) by mouth 2 (two) times a day Active albuterol HFA (PROVENTIL HFA,VENTOLIN HFA,PROAIR HFA) 90 mcg/actuation inhalerIndicatio ns:Acute Asthma Attack Inhale 2 puffs every 6 (six) hours as needed for wheezing or shortness of breath Active acetaminophen (TYLENOL) 500 mg tabletIndication s:Pain Take 1 tablet (500 mg total) by mouth every 6 (six) hours as needed for pain Active aspirin 81 mg chewable tabletIndication s:prevention of thrombosis Take 1 tablet (81 mg total) by mouth daily before breakfast 5 Active Spiriva Respimat 1.25 mcg/actuation inhalerIndicatio ns:Maintenance Therapy for Asthma Inhale 2 puffs daily before breakfast 5 Active traZODone (DESYREL) 50 mg tabletIndication s:insomnia associated with depression Take 1 tablet (50 mg total) by mouth nightly as needed for sleep or depression Active budesonide-formo teroL (SYMBICORT) 160-4.5 mcg/actuation inhalerIndicatio ns:Acute Asthma Attack Inhale 2 puffs 2 (two) times a day Rinse mouth with water after use. Do not swallow. Active atorvastatin (LIPITOR) 40 mg tabletIndication s:hyperlipidemia Take 1 tablet (40 mg total) by mouth every morning Active nitroglycerin (NITROSTAT) 0.[address] 1 tablet (0.4 mg total) under the tongue every 5 (five) minutes as needed for chest pain Has not used 5 Active ciprofloxacin (CIPRO) 500 mg tablet Take 1 tablet (500 mg total) by mouth 2 (two) times a day Active tamsulosin (FLOMAX) 0.4 mg extended release capsule Take 1 capsule (0.4 mg total) by mouth 2 (two) times a day as needed Active cyclobenzaprine (FLEXERIL) 10 mg tablet Take 1 tablet (10 mg total) by mouth 3 (three) times a day as needed for muscle spasms Active cyclobenzaprine (FLEXERIL) 10 mg tablet Take 0.5 tablets (5 mg total) by mouth 3 (three) times a day as needed for muscle spasms 30 tablet 5 025 Discontin ued(Error ) phenazopyridine (PYRIDIUM) 100 mg tablet Take 1 tablet (100 mg total) by mouth 3 (three) times a day as needed for urinary pain 30 tablet 5 025 Discontin ued(Error ) triamterene-hydr oCHLOROthiazide 37.5-25 mg per capsuleIndicatio ns:htn Take 1 tablet/capsule by mouth every morning 5 025 Discontin ued(Error ) oxyBUTYnin (DITROPAN) 5 mg tablet Take 1 tablet (5 mg total) by mouth 3 (three) times a day as needed (stent pain) 15 tablet 5 025 Discontin ued(Error ) tamsulosin (FLOMAX) 0.4 mg extended release capsule Take 1 capsule (0.4 mg total) by mouth daily as needed (stent pain) 20 capsule 5 025 Discontin ued(Error ) oxyCODONE (ROXICODONE) 5 mg immediate release tabletIndication s:Pain Take 1 tablet (5 mg total) by mouth every 4 (four) hours as needed for pain 5 tablet 5 025 Discontin ued(Error ) ciprofloxacin (CIPRO) 500 mg tablet Take 1 tablet (500 mg total) by mouth 2 (two) times a day for 14 days 28 tablet 5 025 Discontin ued(Error ) oxyBUTYnin (DITROPAN) 5 mg tablet Take 1 tablet (5 mg total) by mouth 3 (three) times a day 025 Discontin ued(Error ) Active Problems Problem Noted Date Diagnosed Date Kidney stone 08/24/2025 Malnutrition of moderate degree 08/10/2025 Asthma-COPD overlap syndrome 08/08/2025 Assessment & Plan (08/10/2025 2:56 PM CDT): Endorses dyspnea on admission but satting well on RA in upper 90%s that may be secondary to prior history of Asthma/COPD with low concern for ADHF or PE. Infectious etiology likely due to urinary source given history of emphysematous pylelitis iso nephrolithiasis with no concern for CAP based on CXR. Home regimen of Spiriva, Symbicort and Albuterol PRN. During this admission patient was continued on a regimen Incrusa Ellipta 1 puff daily, Breo Ellipta 1 puff daily, albuterol as needed. Assessment & Plan (08/09/2025 8:17 AM CDT): Endorses dyspnea on admission but satting well on RA in upper 90%s that may be secondary to prior history of Asthma/COPD with low concern for ADHF or PE. Infectious etiology likely due to urinary source given history of emphysematous pylelitis iso nephrolithiasis with no concern for CAP based on CXR. Home regimen of Spiriva, Symbicort and Albuterol PRN -Regimen during admission: Umeclidinium + Fluticasone/Vilanterol + Albuterol PRN Assessment & Plan (08/08/2025 2:04 PM CDT): Endorses dyspnea on admission but satting well on RA in upper 90%s that may be secondary to prior history of Asthma/COPD with low concern for ADHF or PE. Infectious etiology likely due to urinary source given history of emphysematous pylelitis iso nephrolithiasis with no concern for CAP based on CXR. Home regimen of Spiriva, Symbicort and Albuterol PRN -Regimen during admission: Umeclidinium + Fluticasone/Vilanterol + Albuterol PRN Major depressive disorder 08/08/2025 Assessment & Plan (08/10/2025 2:56 PM CDT): Patient was continued on home Sertraline 100mg nightly and Trazodone 50mg nightly PRN during this admission. Assessment & Plan (08/09/2025 8:17 AM CDT): Continue home Sertraline 100mg nightly and Trazodone 50mg nightly PRN Assessment & Plan (08/08/2025 2:04 PM CDT): Continue home Sertraline 100mg nightly and Trazodone 50mg nightly PRN History of ischemic cardiomyopathy 08/07/2025 Assessment & Plan (08/10/2025 2:56 PM CDT): STEMI on 05/12/2025 status post LAD PCI with echocardiogram at that time and noting LVEF of 45-50%. She has since underwent a repeat echo on 06/12/2025 noting improvement in her ejection fraction to 67% . Home GDM T of Metoprolol XL 12.5mg daily and Losartan 25mg daily was held in the setting of low blood pressure and and discussed that she should talk to her cardiology provider on resuming these medications. Assessment & Plan (08/09/2025 8:17 AM CDT): STEMI on 05/12/2025 status post LAD PCI with echocardiogram at that time and noting LVEF of 45-50%. She has since underwent a repeat echo on 06/12/2025 noting improvement in her ejection fraction to 67% -Metoprolol XL 12.5mg daily and Losartan 25mg daily Assessment & Plan (08/08/2025 2:04 PM CDT): STEMI on 05/12/2025 status post LAD PCI with echocardiogram at that time and noting LVEF of 45-50%. She has since underwent a repeat echo on 06/12/2025 noting improvement in her ejection fraction to 67% -Metoprolol XL 12.5mg daily and Losartan 25mg daily Assessment & Plan (08/07/2025 9:24 AM CDT): STEMI on 05/12/2025 status post LAD PCI with echocardiogram at that time and noting LVEF of 45-50%. She has since underwent a repeat echo on 06/12/2025 noting improvement in her ejection fraction to 67%. Euvolemic upon examination today. Will hold losartan in the setting of low normal blood pressure readings. Continue metoprolol XL 12.5 mg daily. Coronary artery disease invo lving makah coronary artery 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 08/07/2025 Assessment & Plan (08/10/2025 2:56 PM CDT): STEMI status post LAD PCI on 05/12/2025. Seen in Cardiology Clinic at [facility] [place] on 08/07 with plan to hold Brillinta for planned procedure in August (3 month s/p PCI placement). Patient was continued on aspirin 81 mg daily, atorvastatin 80 mg nightly. One dose of Brilinta 90 mg b.i.d. was held and was resumed as there was no plan for stone removal during this admission. Patient was counseled on following up with Urology on timing of holding Brilinta. Assessment & Plan (08/09/2025 3:48 PM CDT): STEMI status post LAD PCI on 05/12/2025. Seen in Cardiology Clinic at [facility] [place] on 08/07 with plan to hold Brillinta for planned procedure in August (3 month s/p PCI placement) -Continue aspirin 81 mg daily, atorvastatin 80 mg nightly, Nitro PRN, Continue Brilinta 90 mg BID for now Assessment & Plan (08/08/2025 2:09 PM CDT): STEMI status post LAD PCI on 05/12/2025. Seen in Cardiology Clinic at [facility] [place] on 08/07 with plan to hold Brillinta for planned procedure in August (3 month s/p PCI placement) -Continue aspirin 81 mg daily, atorvastatin 80 mg nightly, Nitro PRN - Can plan to hold Brilinta 90 mg b.i.d.. if potential procedure after consultation Assessment & Plan (08/07/2025 9:25 AM CDT): STEMI status post LAD PCI on 05/12/2025. Denies any chest pain. Continue aspirin 81 mg daily, atorvastatin 80 mg nightly and Brilinta 90 mg b.i.d.. Pre-operative cardiovascular examination 025 Assessment & Plan (08/07/2025 10:30 AM CDT): Patient pending treatment of renal stone. She will need to hold her Brilinta prior to procedure. She had a STEMI with LAD PCI on 05/12/2025. Currently chest pain- free. EKG today unchanged. Not feeling well today with complaints of fatigue, nausea, poor appetite and shortness of breath. She is okay to hold Brilinta for procedure in August as it will be 3 months from her PCI. She should continue aspirin throughout the perioperative . Resume Brilinta when safe from a procedural standpoint. Given complaints today will proceed with lab work and provide further recommendations. Concern for dehydration and possible worsening kidney function given most recent lab work and current complaints. ADDENDUM: Patients labs note an FAITH with a Cr/BUN of 2.7/76. Called and notified patient of results and advised patient to go to ED for further treatment/evaluation. I have called the ED admit line to update them. I will reach out to patients surgical team as an FYI. Nephrolithiasis 06/26/2025 Assessment & Plan (08/10/2025 2:56 PM CDT): Patient presented to [facility] ED on 06/05/25 with fever and right flank pain and found to have a 2 cm obstructing right UVJ stone and gas in collecting system concerning for emphysematous pyelitis. She was transferred to [facility] for further management.R ureteral stent placement on 06/06/25 planned but course c/b Septic shock and transfer to SICU. Required Broad spectrum antibiotics and multiple pressors and intubation, ultimately weaned and extubated and transferred to medicine floor. Jaquez was kept in place given findings of emphysematous pyelitis. She was discharged to home after achieving clinical stability and follow up in [facility] stone clinic for definitive management. She was discharged from [facility] on 06/13/2025. Urine Culture on 06/06 with E coli vega susceptible, and Blood culture with NGTD, Prior antibiotic courses: Cephalexin (06/1307/13/25) , Cefepime (06/05 - 06/07), Ceftriaxone (06/08 - 06/12), Vancomycin (06/05). Repeat Urine Culture as outpatient prior to procedure on 07/17 with Klebsiella growth and susceptibile to Bactrim. Planned course of Abx 14 days. Planned for case on 07/[address] Mccurdy for R ureteroscopy, Laser Lithotripsy, and R ureteral stent exchange. However procedure aborted given decision to hold AC to optimize stone treatment and only stent placement to allow further medical stabilization. Cardiology appointment for cardiac clearance yesterday but was noted to have new FAITH and sent to [facility] ED for further management. On admission, patient received 1 L LR bolus x 3, then on maintenance fluids NS 75ml/hr given low MAPS and poor PO intake. 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 Patient was started on cefepime 1 g IV and was subsequently increased to b.i.d. dosing given improved renal function. Pain was controlled with APAP 650 mg q.6 p.r.n. Patient was taken to the OR by Urology for stent repositioning and was noted to have purulent output during procedure that was sent for culture. Infectious workup to date with blood cultures no growth to date, urine cultures on admission with insignificant growth and and cultures in the OR with insignificant growth as well. Patient was discharged with 5 day course of ciprofloxacin 500 mg b.i.d. 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 She was transferred to [facility] for further management.R ureteral stent placement on 06/06/25 planned but course c/b Septic shock and transfer to SICU. Required Broad spectrum antibiotics and multiple pressors and intubation, ultimately weaned and extubated and transferred to medicine floor. Jaquez was kept in place given findings of emphysematous pyelitis. She was discharged to home after achieving clinical stability and follow [place] definitive management. She was discharged from [facility] on 06/13/2025. Urine Culture on 06/06 with E coli vega susceptible, and Blood culture with NGTD, Prior antibiotic courses: Cephalexin (06/1307/13/25) , Cefepime (06/05 - 06/07), Ceftriaxone (06/08 - 06/12), Vancomycin (06/05). Repeat Urine Culture as outpatient prior to procedure on 07/17 with Klebsiella growth and susceptibile to Bactrim. Planned course of Abx 14 days. Planned for case on 07/[address] Mccurdy for R ureteroscopy, Laser Lithotripsy, and R ureteral stent exchange. However procedure aborted given decision to hold AC to optimize stone treatment and only stent placement to allow further medical stabilization. Cardiology appointment for cardiac clearance yesterday but was noted to have new FAITH and sent to [facility] ED for further management. On admission, patient received 1 L LR bolus x 3, now on maintenance fluids NS 75ml/hr given low MAPS and poor PO intake. 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 Patient was taken to the OR by Urology for stent repositioning and was noted to have purulent output during procedure that was sent for culture. Infectious workup to date with blood cultures no growth today, urine cultures on admission with insignificant growth and currently pending OR cultures. Plan: - Started on cefepime 1 g IV, will now increase to b.i.d. 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 She was transferred to [facility] for further management.R ureteral stent placement on 06/06/25 planned but course c/b Septic shock and transfer to SICU. Required Broad spectrum antibiotics and multiple pressors and intubation, ultimately weaned and extubated and transferred to medicine floor. Jaquez was kept in place given findings of emphysematous pyelitis. She was discharged to home after achieving clinical stability and [place] definitive management. She was discharged from [facility] on 06/13/2025. Urine Culture on 06/06 with E coli vega susceptible, and Blood culture with NGTD, Prior antibiotic courses: Cephalexin (06/1307/13/25) , Cefepime (06/05 - 06/07), Ceftriaxone (06/08 - 06/12), Vancomycin (06/05). Repeat Urine Culture as outpatient prior to procedure on 07/17 with Klebsiella growth and susceptibile to Bactrim. Planned course of Abx 14 days. Planned for case on 07/[address] Mccurdy for R ureteroscopy, Laser Lithotripsy, and R ureteral stent exchange. However procedure aborted given decision to hold AC to optimize stone treatment and only stent placement to allow further medical stabilization. Cardiology appointment for cardiac clearance yesterday but was noted to have new FAITH and sent to [facility] ED for further management. Plan: - BMP, CBC, UA, Urine culture ,Blood culture, Lactate, VBG - Infectious workup with blood cultures no growth to date x2, urine cultures in process. 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 She was transferred to [facility] for further management.R ureteral stent placement on 06/06/25 planned but course c/b Septic shock and transfer to SICU. Required Broad spectrum antibiotics and multiple pressors and intubation, ultimately weaned and extubated and transferred to medicine floor. Jaquez was kept in place given findings of emphysematous pyelitis. She was discharged to home after achieving clinical stability and follow [place] definitive management. She was discharged from [facility] on 06/13/2025. Urine Culture on 06/06 with E coli vega susceptible, and Blood culture with NGTD, Prior antibiotic courses: Cephalexin (06/1307/13/25) , Cefepime (06/05 - 06/07), Ceftriaxone (06/08 - 06/12), Vancomycin (06/05). Repeat Urine Culture as outpatient prior to procedure on 07/17 with Klebsiella growth and susceptibile to Bactrim. Planned course of Abx 14 days. Planned for case on 07/[address] Mccurdy for R ureteroscopy, Laser Lithotripsy, and R ureteral stent exchange. However procedure aborted given decision to hold AC to optimize stone treatment and only stent placement to allow further medical stabilization. Cardiology appointment for cardiac clearance yesterday but was noted to have new FAITH and sent to [facility] ED for further management. On admission, patient received 1 L LR bolus x 3, then on maintenance fluids NS 75ml/hr given low MAPS and poor PO intake. 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 Patient was started on cefepime 1 g IV and was subsequently increased to b.i.d. dosing given improved renal function. Pain was controlled with APAP 650 mg q.6 p.r.n. Patient was taken to the OR by Urology for stent repositioning and was noted to have purulent output during procedure that was sent for culture. Infectious workup to date with blood cultures no growth to date, urine cultures on admission with insignificant growth and and cultures in the OR with insignificant growth as well. Patient was discharged with 5 day course of ciprofloxacin 500 mg b.i.d. 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 She was transferred to [facility] for further management.R ureteral stent placement on 06/06/25 planned but course c/b Septic shock and transfer to SICU. Required Broad spectrum antibiotics and multiple pressors and intubation, ultimately weaned and extubated and transferred to medicine floor. Jaquez was kept in place given findings of emphysematous pyelitis. She was discharged to home after achieving clinical stability and follow up in [facility] stone clinic for definitive management. She was discharged from [facility] on 06/13/2025. Urine Culture on 06/06 with E coli vega susceptible, and Blood culture with NGTD, Prior antibiotic courses: Cephalexin (06/1307/13/25) , Cefepime (06/05 - 06/07), Ceftriaxone (06/08 - 06/12), Vancomycin (06/05). Repeat Urine Culture as outpatient prior to procedure on 07/17 with Klebsiella growth and susceptibile to Bactrim. Planned course of Abx 14 days. Planned for case on 07/[address] Mccurdy for R ureteroscopy, Laser Lithotripsy, and R ureteral stent exchange. However procedure aborted given decision to hold AC to optimize stone treatment and only stent placement to allow further medical stabilization. Cardiology appointment for cardiac clearance yesterday but was noted to have new FAITH and sent to [facility] ED for further management. On admission, patient received 1 L LR bolus x 3, now on maintenance fluids NS 75ml/hr given low MAPS and poor PO intake. 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 Patient was taken to the OR by Urology for stent repositioning and was noted to have purulent output during procedure that was sent for culture. Infectious workup to date with blood cultures no growth today, urine cultures on admission with insignificant growth and currently pending OR cultures. Plan: - Started on cefepime 1 g IV, will now increase to b.i.d. 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 She was transferred to [facility] for further management.R ureteral stent placement on 06/06/25 planned but course c/b Septic shock and transfer to SICU. Required Broad spectrum antibiotics and multiple pressors and intubation, ultimately weaned and extubated and transferred to medicine floor. Jaquez was kept in place given findings of emphysematous pyelitis. She was discharged to home after achieving clinical stability and [place] management. She was discharged from [facility] on 06/13/2025. Urine Culture on 06/06 with E coli vega susceptible, and Blood culture with NGTD, Prior antibiotic courses: Cephalexin (06/1307/13/25) , Cefepime (06/05 - 06/07), Ceftriaxone (06/08 - 06/12), Vancomycin (06/05). Repeat Urine Culture as outpatient prior to procedure on 07/17 with Klebsiella growth and susceptibile to Bactrim. Planned course of Abx 14 days. Planned for case on 07/[address] Mccurdy for R ureteroscopy, Laser Lithotripsy, and R ureteral stent exchange. However procedure aborted given decision to hold AC to optimize stone treatment and only stent placement to allow further medical stabilization. Cardiology appointment for cardiac clearance yesterday but was noted to have new FAITH and sent to [facility] ED for further management. Plan: - BMP, CBC, UA, Urine culture ,Blood culture, Lactate, VBG - Infectious workup with blood cultures no growth to date x2, urine cultures in process. -consult to Urology for potential postobstructive FAITH, for source control, will defer to consult service for any further radiographic imaging (e.g CT w stone protocol) - 1 L LR bolus x 3, now on maintenance fluids NS 75ml/hr given low MAPS and poor PO intake - Started on cefepime 1 g IV, will continue IV antibiotics until susceptibilities for cultures and consider narrowing - Pain regimen: APAP 650mg q6hr prn - Q4 hour vital sign checks, - Nerissa-procedural planning: No plans for surgical intervention today, will resume diet and unhold Brillinta Assessment & Plan (06/12/2025 1:54 PM CDT): Secondary to pansusceptible E coli. Recommend transition to PO cephalexin 500 mg TID to be continued until definitive stone removal. Please provide at least a 30 day supply at discharge given uncertain timing of stone removal. ID will sign off at this time. No ID follow-up needed. Assessment & Plan (06/11/2025 1:22 PM CDT): Urine culture data from urology pending Patient clinically stable on IV ceftriaxone, we will tailor the antibiotic regimen to oral formulation once we have culture and sensitivity reports available Recommend to continue antibiotic for for at least 14 days, ideally until stone removal for complicated upper genitourinary tract infection Assessment & Plan (06/10/2025 4:15 PM CDT): Urine culture data from urology pending Patient clinically stable on IV ceftriaxone Renal stone 06/05/2025 Assessment & Plan (06/11/2025 1:22 PM CDT): Patient has been instructed to follow up with Urology for stone removal. Tentative plan is for the removal right-sided stones within 2-3 weeks. No plan for intervention for the left-sided stone at this time as there is no evidence of obstruction Status post bariatric surgery 09/04/2020 Assessment & Plan (08/10/2025 2:56 PM CDT): Follows with [facility] Weight Loss surgery, S/p Laparoscopic Ruby-en-Y Gastric Bypass in 2019. Patient was continued on Protonix 40 mg daily. She continued to endorse symptoms of nausea occurring postprandially that was managed with Zofran 4 mg as needed every for 8 hours. She was discharged with Zofran as needed for nausea . Assessment & Plan (08/09/2025 3:48 PM CDT): Follows with [facility] Weight Loss surgery, S/p Laparoscopic Ruby-en-Y Gastric Bypass in 2019 -Continue Omperazole 20mg daily, MVI, B12, Ca supplementation Assessment & Plan (08/08/2025 9:18 AM CDT): Follows with [facility] Weight Loss surgery, S/p Laparoscopic Ruby-en-Y Gastric Bypass in 2019 Omperazole 20mg daily, MVI, B12, Ca supplementation Morbid obesity due to excess calories 08/13/2020 Overview (08/13/2020): Added automatically from request for surgery [id number] Morbid obesity 08/02/2019 Pure hypercholesterolemia 03/24/2014 Overview (02/10/2017): PURE HYPERCHOLESTEROLEM Assessment & Plan (08/10/2025 2:56 PM CDT): Home atorvastatin 80 mg nightly was continued during this admission. Assessment & Plan (08/09/2025 8:17 AM CDT): Home atorvastatin 80 mg nightl Assessment & Plan (08/08/2025 2:04 PM CDT): Home atorvastatin 80 mg nightl Assessment & Plan (08/07/2025 9:22 AM CDT): LDL of 26 on labs from 06/07/2025. Continue atorvastatin 80 mg nightly. Hypertension 03/24/2014 Overview (02/10/2017): HYPERTENSION NOS Assessment & Plan (08/10/2025 2:56 PM CDT): Hypotensive in ED admission with BP of 70s/50s improved to 90s/40s iso of fluid resuscitation. Fluid repletion now s/p LR 3L bolus and on maintenance infusion at 75ml/hr. Lactate trend 1 < 2.1 < 2.9. Patient's home antihypertensive medications (Losartan 25mg , Triamteren HCTZ 37.5 -25 mg) were held given low blood pressures and were held on discharge. Patient should discuss resuming these medications with her primary care provider/cardiology provider. Assessment & Plan (08/09/2025 3:48 PM CDT): Hypotensive in ED admission with BP of 70s/50s improved to 90s/40s iso of fluid resuscitation. Fluid repletion now s/p LR 3L bolus and on maintenance infusion at 75ml/hr. Lactate trend 1 < 2.1 < 2.9. - Hold home antihypertensives.Losartan , Triamteren HCTZ - Trend Lactate daily, VBG as needed Assessment & Plan (08/08/2025 2:04 PM CDT): Hypotensive in ED admission with BP of 70s/50s improved to 90s/40s iso of fluid resuscitation. - Hold home antihypertensives.Losartan , Triamteren HCTZ - Fluid repletion now s/p LR 3L bolus and on maintenance infusion at 75ml/hr - Repeat Lactate and VBG Assessment & Plan (08/07/2025 9:23 AM CDT): Low normal readings. Reporting nausea, fatigue and poor appetite. Hold losartan. Keep blood pressure diary and return for review in 1 week. We will consider holding metoprolol XL next if blood pressure remains on low side. Lab work today. Encouraged hydration and BRAT diet. Hypothyroidism 03/24/2014 Overview (02/13/2017): HYPOTHYROIDISM NOS Assessment & Plan (08/10/2025 2:56 PM CDT): Patient was continued on home Levothyroxine 150mcg. Assessment & Plan (08/09/2025 8:17 AM CDT): Continue Levothyroxine 150mcg Assessment & Plan (08/08/2025 2:04 PM CDT): Continue Levothyroxine 150mcg Adiposity 04/01/2010 Overview (02/10/2017): OBESITY NOS Resolved Problems Problem Noted Date Diagnosed Date Resolved Date Acute kidney injury 08/07/2025 08/09/20 Assessment & Plan (08/09/2025 3:48 PM CDT): Presents with Cr 2.75 from apparent baseline of 0.7-1. Afebrile in the ED with soft pressures of 70/50 that improved to 90s over 50s after IV fluid administration 3 L LR, and satting well on room air. No leukocytosis on CBC. In the setting of known right ureteral stone and status post stent placement on 07/27. UA in the ED notable for turbid urine, 2+ protein 3+ leukocyte esterase, pyuria hematuria. Renal ultrasound notable for hydronephrosis of the right kidney with indwelling stent.Differential of FAITH is prerenal(iso poor PO intake, low MAPs) v.s post renal obstruction given history of of right stone with sonographic findings of hydronephrosis.On admission, patient received 1 L LR bolus x 3, now on maintenance fluids NS 75ml/hr given low MAPS and poor PO intake. Patient underwent stent repositioning on 08/08. Creatinine down trended to 0.94 on 08/08. Plan: -Continued to monitor creatinine with daily BMP, encourage good p.o. intake Assessment & Plan (08/08/2025 2:04 PM CDT): Presents with Cr 2.75 from apparent baseline of 0.7-1. Afebrile in the ED with soft pressures of 70/50 that improved to 90s over 50s after IV fluid administration 3 L LR, and satting well on room air. No leukocytosis on CBC. In the setting of known right ureteral stone and status post stent placement on 07/27. UA in the ED notable for turbid urine, 2+ protein 3+ leukocyte esterase, pyuria hematuria. Renal ultrasound notable for hydronephrosis of the right kidney with indwelling stent.Differential of FAITH is prerenal(iso poor PO intake, low MAPs) v.s post renal obstruction given history of of right stone with sonographic findings of hydronephrosis. Plan: -consult to Urology for potential postobstructive FAITH, for source control, will defer to consult service for any further radiographic imaging (e.g CT w stone protocol) - 1 L LR bolus x 3, now on maintenance fluids NS 75ml/hr given low MAPS and poor PO intake - Continue IVF resuscitation, now s/p LR 1L bolus x 3 with interval improvement in SCr. Will continue volume resuscitation given c/f pre-renal etiology of FAITH iso of poor PO intake, low blood pressure, and ongoing stone/infectious workup Encounters Date Type Department Care Team Description 09/28/2025 Telephone [facility] Medicine Cardiology [address] [facility] Medicine 8th [place] [address] [place] [phone] Gabe Muñoz MD 09/19/2025 10:35 AM GRADE CHECKER Anesthesia Event [facility] Operating Room [address] [place] [phone] Cole Bauer DO Devuono, Lauren Falvey, NP 09/19/2025 10:00 AM GRADE CHECKER - 09/19/2025 11:45 AM GRADE CHECKER Surgery [facility] Operating Room [address] [place] [address] [phone] Genaro Mccurdy MD Cytoscopy, Removal Bilateral Ureteral Stents, Bilateral Ureteroscopy, Thulium LASER Lithotripsy 09/19/2025 7:51 AM GRADE CHECKER - 09/19/2025 1:41 PM GRADE CHECKER Hospital Encounter [facility] Operating Room [address] [place] [phone] Genaro Mccurdy MD Kidney stone (Primary Dx) Discharge Disposition: Discharge to home or self care 09/17/2025 9:30 AM GRADE CHECKER Pre-Admission Testing [facility] Pre Anesthesia Testing [address] [place] [phone] 09/14/[address] [facility] [address] [place] [id number] Genaro Mccurdy MD 09/13/2025 Results Follow-Up [facility] - [facility] Medicine Urology [address] [facility] Medical Office Building [address] [place] [phone] Genaro Mccurdy MD Urine culture Urine, bladder 09/12/2025 Telephone [facility] - [facility] Medicine Urology [address] [facility] 11th [place] [address] [place] [phone] Genaro Mccurdy MD 09/10/2025 Results Follow-Up [facility] at [address] [place] [address] Latasha Clarke MA Surgical pathology 09/07/2025 2:46 PM CDT - 09/07/2025 11:59 PM CDT Hospital Encounter [facility] Radiology [facility] ([facility]) [address] [place] [address] Genaro Mccurdy MD Kidney stones Discharge Disposition: Discharge to home or self care 09/05/2025 SHOP/CHAP Subsequent [facility]reach [facility] [address] [phone] [place] [phone] Alanis Gaxiola LCSW 09/03/2025 SHOP/CHAP Subsequent [facility]reach [facility] [address] [facility] 26-07-6 [place] [phone] Alanis Gaxiola LCSW 08/31/2025 12:06 PM CDT - 08/31/2025 2:36 PM CDT Surgery [facility] Operating Room [address] [place] [address] Genaro Mccurdy MD BILATERAL URETEROSCOPY 08/31/2025 11:53 AM CDT Anesthesia Event [facility] Operating Room [address] [place] [address] Genaro Hallman [facility] 08/31/2025 9:45 AM CDT - 08/31/2025 5:22 PM CDT Hospital Encounter [facility] Operating Room [address] [place] [address] Genaro Mccurdy MD Kidney stone Discharge Disposition: Discharge to home or self care 08/31/2025 Orders Only [facility] ([facility]) - [facility] Medicine Urology [address] [facility] Advanced Medicine 11th [place] [address] [place] [address] Genaro Mccurdy MD Kidney stones (Primary Dx) 08/27/2025 SHOP/CHAP Subsequent [facility] [address] [facility] [phone] [place] [phone] Kacy TalaveraTERI marin 08/24/2025 3:08 PM CDT Anesthesia Event [facility] Operating Room [address] [place] [address] Delgado Freire MD McGowan, Jessica Lynn, NP 08/24/2025 2:45 PM CDT - 08/24/2025 5:00 PM CDT Surgery [facility] Operating Room [address] [place] [address] Genaro Mccurdy MD Right Ureteroscopy, Thulium Laser Lithotripsy, Right Ureteral Stent Exchange 08/24/2025 1:03 PM CDT - 08/24/2025 5:48 PM CDT Hospital Encounter [facility] Operating Room [address] [place] [address] Genaro Mccurdy MD Kidney stone Discharge Disposition: Discharge to home or self care 08/22/2025 10:33 AM CDT - 08/22/2025 11:59 PM CDT Hospital Encounter [facility] Cardiac Diagnostic Lab [address] [facility] 8th [place] [phone] History of ischemic cardiomyopathy; 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; Pre-operative cardiovascular examination Discharge Disposition: Discharge to home or self care 08/22/2025 Results Follow-Up [facility] Medicine Cardiology [address] [facility] Medicine 8th [place] [address] [place] [phone] Bharathi Moser NP Transthoracic Echo (TTE) Complete W Doppler/CF 08/21/2025 Telephone [facility]) - [facility] Medicine Urology [address] [facility] 11th [place] [address] [place] [phone] Genaro Mccurdy MD 08/20/2025 Results Follow-Up [facility] - [facility] Medicine Urology [address] [facility] Medical Office Building [address] [place] [phone] Genaro Mccurdy MD Urine culture Urine, clean voided 08/20/2025 SHOP/CHAP Subsequent [facility] [address] [facility] [address] [place] [phone] Alanis Gaxiola, TERI 08/17/2025 Results Follow-Up [facility] Cardiology [address] [facility] 8th [place] [address] [place] [phone] Bharathi Moser, CAROLYN Pro B-type natriuretic peptide 08/15/2025 Telephone [facility] Cardiology [address] [facility] 8th [place] [address] [place] [phone] Bharathi Moser NP 08/14/2025 Orders Only [facility] - [facility] Medicine Urology [address] [facility] 11th [place] [address] [place] [phone] Genaro Mccurdy MD Nephrolithiasis (Primary Dx) 08/14/2025 Orders Only [facility] - [facility] Medicine Urology [address] [facility] 11th [place] [address] [place] [address] Genaro Mccurdy MD Nephrolithiasis (Primary Dx) 08/13/2025 SHOP/CHAP Initial [facility] [address] [facility] [address] [place] [phone] Clara Talavera LCSW 08/13/2025 SHOP/CHAP Initial Eligibility Review [facility] [address] [facility] [address] [place] [phone] Clara Talavera LCSW 08/08/2025 8:30 PM CDT - 08/08/2025 9:32 PM CDT Surgery [facility] Operating Room [address] [place] [address] Toby Johnson MD EXCHANGE STENT - URETERAL, CYSTOGRAM; 08/08/2025 8:29 PM CDT Anesthesia Event [facility] Operating Room [address] [place] [phone] Jose Hernandes MD Fingerman, Mitchell Evan, MD 08/07/2025 11:24 AM CDT - 08/10/2025 6:26 PM CDT Hospital Encounter [facility] [address] [place] [address] Javon Barton MD Odom, MD Vadim Barbosa Matthew A., MD Litkowski, Patricia, MD Liu, Patricia Montero MD Acute kidney injury (Primary Dx); Hypotension due to hypovolemia; Dehydration; Nausea and vomiting, unspecified vomiting type; Ureteral stone; History of CAD (coronary artery disease) Discharge Disposition: Discharge to home or self care 08/07/2025 9:15 AM CDT Lab [facility] [address] [place] [address] 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 08/07/2025 8:00 AM CDT Office Visit [facility] Medicine Cardiology [address] [facility] 8th [place] [address] [place] [phone] Bharathi Moser NP 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 (Primary Dx); History of ischemic cardiomyopathy; Primary hypertension; Pure hypercholesterolemia; Pre-operative cardiovascular examination 08/07/2025 Telephone [facility] - [facility] Medicine Urology [address] [facility] 11th [place] [address] [place] [phone] Genaro Mccurdy MD 08/07/2025 Results Follow-Up [facility] Medicine Cardiology [address] [facility] 8th [place] [address] [place] [phone] Bharathi Moser, CAROLYN ECG 12 lead, Comprehensive metabolic panel, CBC with auto differential, Additional followed-up results: 2 07/27/2025 7:15 AM CDT - 07/27/2025 9:45 AM CDT Surgery [facility] Operating Room [address] [place] [address] Genaro Mccurdy MD Right Ureteroscopy, Right Ureteral Stent Exchange 07/27/2025 7:14 AM CDT Anesthesia Event [facility] Operating Room [address] [place] [address] Sandro Prado MD Keeline, Leslye Brooks MD 07/27/2025 5:26 AM CDT - 07/27/2025 9:25 AM CDT Hospital Encounter [facility] Operating Room [address] [place] [address] Genaro Mccurdy MD Kidney stone (Primary Dx) Discharge Disposition: Discharge to home or self care 07/27/2025 Telephone [facility] Medicine Cardiology [address] [facility] 8th [place] [address] [place] [phone] Gabe Muñoz MD Clearance 07/21/2025 Results Follow-Up [facility] - [facility] Medicine Urology [address] [facility] Medical Office Building [address] [place] [phone] Genaro Mccurdy MD Urine culture Urine, clean voided 07/20/2025 Telephone [facility] Medicine Surgery [address] [place] [address] Alanis Rubin from Last 3 Months Immunizations Immunization Administration Dates Next Due Influenza, Split 09/10/2011,12/02/2010 Influenza, Unspecified 08/21/2020 Td, adsorbed 04/08/2009 Surgical History Surgery Date Site/Laterality Comments SECTION 11/08/1984 - 11/07/1985 section MELANOMA RESECTION 11/08/1993 - 11/07/1994 Right right buttock KNEE SURGERY 11/08/2011 - 11/07/2012 Right SECTION 11/08/1988 - 11/07/1989 TEMPOROMANDIBULAR JOINT SURGERY 11/08/1985 - 11/07/1986 Bilateral LITHOTRIPSY 11/08/2024 - 11/07/2025 x 3 APPENDECTOMY 11/08/2013 - 11/07/2014 CHOLECYSTECTOMY 11/08/2015 - 11/07/2016 HYSTERECTOMY 11/08/2014 - 11/07/2015 ANKLE FRACTURE SURGERY 11/08/2023 - 11/07/[address] ENT PLACEMENT 05/12/2025 Stent x1 in LAD GASTRIC BYPASS 08/27/2020 THUMB SURGERY 11/08/2014 - 11/07/2015 tumor removed BLADDER SURGERY 08/08/2025 stent exchange SECTION 11/08/1986 - 11/07/1987 URETEROSCOPY 08/24/2025 Right CYSTOSCOPY 06/06/2025 LITHOTRIPSY 05/17/2017 Medical History Medical History Date Comments Disorder of thyroid Thyroid dise ase Hypertension Hypertension Adiposity Obesity Hyperlipidemia Hyperlipidemia Hx Other Medical RUPTER APPENDEX Arthritis Asthma Cancer (HCC) Fibromyalgia, primary GERD (gastroesophageal reflux disease) Kidney stone Back pain Fatty liver Ear infection left Sleep apnea Myocardial infarct (HCC) PONV (postoperative nausea and vomiting) none with recent surgeries Family History Medical History Relation Name Comments Hypertension Father Hypertension; Hypertension Mother Hypertension; Other Mother Alive and well; Anesthesia problems Neg Hx Relation Name Status Comments Father Mother Alive Social History Tobacco Use Types Packs/Day Years Used Date Smoking Tobacco: Former Cigarettes 2 36 1 974 - 2009 Smokeless Tobacco: Never Tobacco Cessation:Counseling Given: Not Answered Alcohol Use Standard Drinks/Week Comments Yes 1 (1 standard drink = 0.6 oz pur e alcohol) social Social Connection and Isolation Panel Answer Date Recorded Frequency of Communication with Friends and Fami ly Twice a week 08/13/2025 Frequency of Social Gatherings with Friends and Family Twice a week 08/13/2025 How often do you attend methodist or hindu serv ices? Never 08/13/2025 Do you belong to any clubs o r organizations such as methodist groups, unions, fraternal or athletic groups, or school groups? No 08/13/2025 Attends Club or Organization Meetings Never 08/13/2025 Are you , , di vorced, , never , or living with a partner? 08/13/2025 AUDIT-C Answer Date Recorded Q1: How often do you have a drink containing alc ohol? 2-4 times a month 09/17/2025 Q2: How many drinks containi ng alcohol do you have on a typical day when you are drinking? 1 or 2 09/17/2025 Q3: How often do you have si x or more drinks on one occasion? Never 09/17/2025 Overall Financial Resource Strain (CARDIA) Answe r [...] Homeless in the Last Year No 2024 [facility] Utilities Answer Date Recorded In the past 12 months has th e FAZUA, gas, oil, or water mapp2link threatened to shut off services in your home? No 08/13/2025 Personal Safety Answer Date Recorded Have you ever been in or are you currently in a harmful physical or emotional relationship or is someone making you feel afraid or unsafe? Denies 09/19/2025 Comments No Sex and Gender Information Value Date Recorded Sex Assigned at Not on file Legal Sex Female 3:44 PM GRADE CHECKER Gender Identity Female 01/13/2021 1:14 PM GRADE CHECKER Sexual Orientation Not on file Last Filed Vital Signs Vital Sign Reading Time Taken Comments Blood Pressure 144/74 09/19/2025 1:20 PM GRADE CHECKER Pulse 59 09/19/2025 1:30 PM GRADE CHECKER Temperature 36.7 C (98 F) 09/19/2025 12:05 PM GRADE CHECKER Respiratory Rate 16 09/19/2025 1:30 PM GRADE CHECKER Oxygen Saturation 100% 09/19/2025 1:30 PM GRADE CHECKER Inhaled Oxygen Concentration - - Weight 73 kg (160 lb 15 oz) 09/19/2025 8:[address] Height 162.6 cm (5' 4) 09/19/2025 8:30 AM GRADE CHECKER Body Mass Index 27.62 09/19/2025 8:30 AM GRADE CHECKER Plan of Treatment Health Maintenance Due Date Last Done Comments Breast Cancer Screening-Mammogram 1955 Colon Cancer Screening-Colonoscopy 1955 Depression Screening 1955 Hepatitis C Screening 1955 Osteoporosis Screening-Bone Density Scan 1955 Hepatitis B Screening 1973 Zoster Vaccine (1 of 2) 2005 DTaP/Tdap/Td Vaccine (1 - Tdap) 11/13/2014 5, 04/08/2009 Well Visit 65+ 2020 Pneumococcal vaccine 65+ (2 of 2 - PPSV23, PCV20, or PCV21) 11/26/2021 10/01/2021 Influenza Vaccine (#1) 2025 3, 08/18/2022, 10/01/2021, Additional history exists Fall Risk Assessment 09/19/2026 09/19/2025 Medical Devices Implanted Type Area Life Insurance Sales Device Identifier Shelf Expiration Date Model / Serial / Lot [employer] Delilah Stent Ureteral Double Pigtail Tria [id number] Ptfe [id number] - [id number] Implanted:Qty: 1 on 08/08/2025 by Toby Johnson MD at [facility] Stent Right: Ureter [employer] Delilah [id number] 01/23/2028 [id number] 20 / / [id number] Knee Right: Knee Hardware Left: Ankle [employer] Universa 6fr 28cm Firm Positioner Monofilament Tether Stent [id number] - [id number] Implanted:Qty: 1 on 06/06/2025 by Barbie Guillaume MD at [facility] Right: Urethra [employer] [id number] 08/16/2027 [id number] / / [id number] [employer] Delilah Stent Ureteral Set Double Pigtail Tapered Tip Percuflex Plus [id number] Hydroplus Coated [id number] - [id number] Implanted:Qty: 1 on 07/27/2025 at [facility] Right: Ureter [employer] Delilah 03/18/2028 [id number] 30 / / [id number] [employer] Delilah Stent Ureteral Set Double Pigtail Tapered Tip Percuflex Plus [id number] Hydroplus Coated [id number] - [id number] Implanted:Qty: 1 on 08/24/2025 at [facility] Left: Ureter [employer] 12/27/2027 [id number] 20 / / [id number] [employer] Stent Ureteral Set Double Pigtail Tapered Tip Percuflex Plus [id number] Hydroplus Coated [id number] - [id number] Implanted:Qty: 1 on 08/24/2025 at [facility] Right: Ureter [employer] 12/27/2027 [id number] 20 / / [id number] Explanted Type Area Life Insurance Sales Device Identifier Shelf Expiration Date Model / Serial / Lot [employer] Stent Ureteral Set Double Pigtail Tapered Tip Contour [id number] Hydroplus Coated [id number] - [id number] Implanted:Qty: 1 on 08/31/2025 at [facility] Explanted:Qty: 1 on 09/19/2025 by Genaro Mccurdy MD at [facility] Left: Ureter [employer] 05/09/2028 [id number] 0 / / [id number] [employer] Stent Ureteral Set Double Pigtail Tapered Tip Contour [id number] Hydroplus Coated [id number] - [id number] Implanted:Qty: 1 on 08/31/2025 at [facility] Explanted:Qty: 1 on 09/19/2025 by Genaro Mccurdy MD at [facility] Right: Ureter [employer] 05/09/2028 [id number] / / [id number] Procedures Procedure Name Priority Date/Time Associated Diagnosis Comments FL FLUOROSCOPY < 1 HOUR IP Routine 09/19/2025 11:59 AM GRADE CHECKER NM AN PROCEDURE PLACEHOLDER Routine 09/19/2025 10:57 AM GRADE CHECKER NM AN ELECTIVE SUPRAGLOTTIC AIRWAY Routine 09/19/2025 10:57 AM GRADE CHECKER URETEROSCOPY 09/19/2025 10:35 AM GRADE CHECKER Kidney stone EGFR STAT 09/19/2025 8:47 AM GRADE CHECKER BASIC METABOLIC PANEL STAT 09/19/2025 8:47 AM GRADE CHECKER URINE CULTURE Routine 09/11/2025 11:00 AM GRADE CHECKER Nephrolithiasis CT KUB STONE WO CONTRAST Schedule Routine, Read Routine (OP Routine) 09/07/2025 3:08 PM CDT Kidney stones AEROBIC AND ANAEROBIC CULTURE AND GRAM STAIN Routine 08/31/2025 2:15 PM CDT FL FLUOROSCOPY < 1 HOUR IP Routine 08/31/2025 2:14 PM CDT SURGICAL PATHOLOGY Routine 08/31/2025 1:54 PM CDT Kidney stone NM AN PROCEDURE PLACEHOLDER Routine 08/31/2025 12:17 PM CDT NM AN ELECTIVE ENDOTRACHEAL AIRWAY Routine 08/31/2025 12:17 PM CDT EXCHANGE STENT - URETERAL 08/31/2025 11:52 AM CDT Kidney stone Special Needs Thulium Laser - MSI confirmed availability over the phone. LASER - LITHOTRIPSY - THULIUM 08/31/2025 11:52 AM CDT Kidney stone Special Needs Thulium Laser - [employer] confirmed availability over the phone. URETEROSCOPY 08/31/2025 11:52 AM CDT Kidney stone Special Needs Thulium Laser - [employer] confirmed availability over the phone. FL FLUOROSCOPY < 1 HOUR IP Routine 08/24/2025 4:53 PM CDT SURGICAL PATHOLOGY Routine 08/24/2025 4:23 PM CDT Kidney stone NM AN PROCEDURE PLACEHOLDER Routine 08/24/2025 3:22 PM CDT NM AN ELECTIVE ENDOTRACHEAL AIRWAY Routine 08/24/2025 3:22 PM CDT PLACEMENT STENT - URETERAL 08/24/2025 3:10 PM CDT Kidney stone Special Needs Thulium Laser - MSI confirmed availability over the phone. EXCHANGE STENT - URETERAL 08/24/2025 3:10 PM CDT Kidney stone Special Needs Thulium Laser - MSI confirmed availability over the phone. LASER - LITHOTRIPSY - THULIUM 08/24/2025 3:10 PM CDT Kidney stone Special Needs Thulium Laser - MSI confirmed availability over the phone. URETEROSCOPY 08/24/2025 3:10 PM CDT Kidney stone Special Needs Thulium Laser - [employer] confirmed availability over the phone. 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 Pre-operative cardiovascular examination PRO B-TYPE NATRIURETIC PEPTIDE Routine 08/16/2025 10:51 AM CDT History of ischemic cardiomyopathy URINE CULTURE Routine 08/15/2025 11:46 AM CDT Nephrolithiasis TROPONIN I HIGH-SENSITIVITY 4-HOUR Timed 08/10/2025 1:13 PM CDT TROPONIN I HIGH-SENSITIVITY 2-HOUR Timed 08/10/2025 11:56 AM CDT TROPONIN I HIGH-SENSITIVITY SERIES (BASELINE, 2HR, 4HR, 6HR) Routine 08/10/2025 8:44 AM CDT EGFR Routine 08/10/2025 5:17 AM CDT LACTATE Routine 08/10/2025 5:17 AM CDT CBC WITHOUT DIFFERENTIAL Routine 08/10/2025 5:17 AM CDT BASIC METABOLIC PANEL Routine 08/10/2025 5:17 AM CDT LACTATE Routine 08/09/2025 1:28 PM CDT EGFR Routine 08/09/2025 5:47 AM CDT CBC WITHOUT DIFFERENTIAL Routine 08/09/2025 5:47 AM CDT BASIC METABOLIC PANEL Routine 08/09/2025 5:47 AM CDT URINE CULTURE Routine 08/08/2025 9:19 PM CDT FL FLUOROSCOPY < 1 HOUR IP Routine 08/08/2025 9:17 PM CDT NM AN PROCEDURE PLACEHOLDER Routine 08/08/2025 8:48 PM CDT NM AN ELECTIVE ENDOTRACHEAL AIRWAY Routine 08/08/2025 8:48 PM CDT EXCHANGE STENT - URETERAL 08/08/2025 8:32 PM CDT Acute kidney injury LACTATE Timed 08/08/2025 5:[address] ABDOMEN PELVIS WO CONTRAST ED Urgent/IP Urgent 08/08/2025 4:00 PM CDT BLOOD GAS, VENOUS Routine 08/08/2025 2:34 PM CDT LACTATE Routine 08/08/2025 2:34 PM CDT EGFR Routine 08/08/2025 7:51 AM CDT DIFFERENTIAL AUTO Routine 08/08/2025 7:51 AM CDT CBC WITH AUTO DIFFERENTIAL Routine 08/08/2025 7:51 AM CDT RENAL FUNCTION PANEL Routine 08/08/2025 7:51 AM CDT TROPONIN I HIGH-SENSITIVITY 6-HOUR Timed 08/07/2025 6:12 PM CDT US KIDNEY COMPLETE IP Routine 08/07/2025 4:24 PM CDT EGFR Routine 08/07/2025 3:46 PM CDT URINALYSIS, MICROSCOPIC ONLY STAT 08/07/2025 3:46 PM CDT BLOOD GAS, VENOUS Routine 08/07/2025 3:46 PM CDT RENAL FUNCTION PANEL Routine 08/07/2025 3:46 PM CDT CREATININE, URINE, RANDOM Routine 08/07/2025 3:46 PM CDT SODIUM, URINE, RANDOM Routine 08/07/2025 3:46 PM CDT TROPONIN I HIGH-SENSITIVITY 4-HOUR Timed 08/07/2025 3:46 PM CDT URINE CULTURE STAT 08/07/2025 3:46 PM CDT URINALYSIS AND REFLEX TO MICROSCOPIC AND CULTURE STAT 08/07/2025 3:46 PM CDT NM CRITICAL CARE ILL/INJURED PATIENT INIT 30-74 MIN Routine 08/07/2025 1:18 PM CDT XR CHEST 1 VIEW ED 08/07/2025 12:22 PM CDT ECG 12-LEAD STAT 08/07/2025 11:59 AM CDT EGFR STAT 08/07/2025 11:40 AM CDT DIFFERENTIAL AUTO STAT 08/07/2025 11:40 AM CDT SEPSIS LACTATE WITH REFLEX STAT 08/07/2025 11:40 AM CDT TROPONIN I HIGH-SENSITIVITY SERIES (BASELINE, 2HR, 4HR, 6HR) STAT 08/07/2025 11:40 AM CDT COMPREHENSIVE METABOLIC PANEL STAT 08/07/2025 11:40 AM CDT CBC WITH AUTO DIFFERENTIAL STAT 08/07/2025 11:40 AM CDT BLOOD CULTURE STAT 08/07/2025 11:40 AM CDT BLOOD CULTURE STAT 08/07/2025 11:40 AM CDT EGFR Routine 08/07/2025 9:27 AM CDT 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 DIFFERENTIAL AUTO Routine 08/07/2025 9:27 AM CDT 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 CBC WITH AUTO DIFFERENTIAL Routine 08/07/2025 9:27 AM CDT 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 COMPREHENSIVE METABOLIC PANEL Routine 08/07/2025 9:27 AM CDT 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 ECG 12-LEAD Routine 08/07/2025 9:01 AM CDT 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 FL FLUOROSCOPY < 1 HOUR IP Routine 07/27/2025 8:39 AM CDT NM AN PROCEDURE PLACEHOLDER Routine 07/27/2025 8:16 AM CDT NM AN ELECTIVE SUPRAGLOTTIC AIRWAY Routine 07/27/2025 8:16 AM CDT MYCOLOGY (FUNGAL) CULTURE Routine 07/27/2025 8:09 AM CDT AEROBIC AND ANAEROBIC CULTURE AND GRAM STAIN Routine 07/27/2025 8:09 AM CDT EXCHANGE STENT - URETERAL 07/27/2025 7:19 AM CDT Kidney stone URETEROSCOPY 07/27/2025 7:19 AM CDT Kidney stone CRP, HIGH SENSITIVITY Routine 07/17/2025 10:[address] elevation myocardial infarction (STEMI), unspecified artery (HCC) 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 CBC WITH AUTO DIFFERENTIAL Routine 07/17/2025 10:[address] elevation myocardial infarction (STEMI), unspecified artery (HCC) 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 BASIC METABOLIC PANEL Routine 07/17/2025 10:[address] elevation myocardial infarction (STEMI), unspecified artery (HCC) 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 Please refer to the physician's procedure / OR operative note. us Genaro Mccurdy MD IMG FLUOROSCOPY PROCEDUR ES Final Result [facility] * NM AN ELECTIVE SUPRAGLOTTIC AIRWAY, NM AN PROCEDURE PLACEHOLDER (09/19/2025 10:57 AM GRADE CHECKER) Narrative Nya Nair CRNA - 09/19/2025 10:57 AM GRADE CHECKER Nya Nair CRNA 09/19/2025 10:58 AM Airway Patient location: OR Urgency: elective Date/time: 09/19/2025 10:43 AM Indications for airway management: anesthesia Difficult airway: no Staff: Supervising provider: Cole Bauer DO Placed by: TURF KEEPER: Nya Nair CRNA Emergent airway documentation: Risks and benefits discussed: yes Consent obtained: yes Consent given by: patient Airway prep: Preoxygenated: yes Patient position: sniffing Mask difficulty assessment: 0 - not attempted Spontaneous ventilation during airway: present Sedation level during airway: deep Final airway details: Final airway type: supraglottic airway Final supraglottic airway: IGel SGA size: 4 Number of attempts: 1 Cole Bauer DO ANESTHESIA ORDERABLES Fi nal Result * eGFR (09/19/2025 8:47 AM GRADE CHECKER) eGFR 71 >=60 mL/min/1. 73 m2 Comment: Interpretive Data Reference Interval Normal >/= 90 mL/min/1.73m2 Mildly decreased* 60 - 89 mL/min/1.73m2 Mildly to moderately decreased 45 - 59 mL/min/1.73m2 Moderately to severely decreased 30 - 44 mL/min/1.73m2 Severely decreased 15 - 29 mL/min/1.73m2 Kidney Failure < 15 mL/min/1.73m2 *Relative to young adult level Estimated glomerular filtration rate is determined by the 2020 CKD-EPI equation recommended by the National Kidney Foundation (A Unifying Approach to GFR Estimation: Recommendations of the NKF-ASK Task Force on Reassessing the Inclusion of Race in Diagnosing Kidney Disease, JASN 202). The CKD-EPI equation should not be used for patients with unstable renal function and has not been validated in children and those over 70. Current interpretive data was last reviewed 2021. Blood 09/19/2025 8:47 AM GRADE CHECKER 09/19/2025 8:58 AM GRADE CHECKER Chayo Rodriguez ACADEMIC SUPPORT COORDINATOR LAB BLOOD ORDERABLES Fi nal Result Performing Organization Address City/[facility]/ZIP Co de Phone Number [facility] [address] [place] [place] [address] * (ABNORMAL) Basic metabolic panel (09/19/2025 8:47 AM GRADE CHECKER) [facility] Sodium 139 135 - 145 mmol/L Potassium, pl 3.1(L) 3.3 - 4.9 mmol/L [facility] Chloride 109 97 - 110 mmol/L [facility] CO2 18(L) 22 - 32 mmol/L [facility] Anion gap 12 2 - 15 mmol/L [facility] BUN 16 6 - 25 mg/dL [facility] Creatinine 0.88 0.60 - 1.10 mg/dL [facility] Glucose 87 70 - 199 mg/dL [facility] Comment: Interpretive Data Fasting glucose >/= 126 mg/dl is diagnostic for diabetes. Fasting is defined as no caloric intake for at least 8 hours. Fasting glucose between 100 mg/dl to 125 mg/dl is diagnostic of prediabetes. In a patient with classic symptoms of hyperglycemia or hyperglycemic crisis, a random glucose >/= 200 mg/dl is diagnostic for diabetes. In the absence of unequivocal hyperglycemia, results should be confirmed by repeat testing. The classification and Diagnosis of Diabetes Diabetes Care 2021; 46: S19-S40. Current interpretive data was last revised 2022. Calcium 8.5 8.5 - 10.3 mg/dL [facility] Blood 09/19/2025 8:47 AM GRADE CHECKER 09/19/2025 8:58 AM GRADE CHECKER Chayo Rodriguez ACADEMIC SUPPORT COORDINATOR LAB BLOOD ORDERABLES Fi nal Result Performing Organization Address City/[facility]/ZIP Co de Phone Number [facility] [address] [place] [address] * (ABNORMAL) Urine culture Urine, bladder (09/11/2025 11:00 AM GRADE CHECKER) Pathologist [facility] Urine culture Final report(A) [facility] - 01 Result 1 Klebsiella pneumoniae(A) [facility] - 01 Comment: Cefazolin with an MAHOGANY <=16 predicts susceptibility to the oral agents cefaclor, cefdinir, cefpodoxime, cefprozil, cefuroxime, cephalexin, and loracarbef when used for therapy of uncomplicated urinary tract infections due to E. coli, Klebsiella pneumoniae, and Proteus mirabilis. 10,000-25,000 colony forming units per mL Antimicrobial Susceptibility Comment [facility] - 01 Comment: S = Susceptible; I = Intermediate; R = Resistant P = Positive; N = Negative MICS are expressed in micrograms per mL Antibiotic RSLT#1 RSLT#2 RSLT#3 RSLT#4 Amoxicillin/Clavulanic Acid S Ampicillin R Cefazolin S Cefepime S Cefoxitin S Cefpodoxime S Ceftriaxone S Ciprofloxacin S Ertapenem S Gentamicin S Levofloxacin S Meropenem S Nitrofurantoin S Piperacillin/Tazobactam S Tetracycline S Tobramycin S Trimethoprim/Sulfa R Urine, bladder 09/11/2025 11 :00 AM GRADE CHECKER 09/11/2025 Comment:UR Narrative [facility] - 09/13/2025 7:09 PM GRADE CHECKER Performed at: [address] [id number] Radiology Tech: Dago Mckinley PhD, Phone: [phone] us Genaro Mccurdy MD LAB MICROBIOLOGY - GENER AL ORDERABLES Final Result [facility] - 01 * CT KUB Stone WO Contrast (09/07/2025 3:08 PM CDT) Anatomical Region Laterality Modality Abdomen N/A Computed Tomogra phy 09/07/2025 3:22 PM CDT Impressions 09/07/2025 3:22 PM CDT 1. Interval reduction in stone burden in both kidneys as described above. 2. Mild left pelvicaliectasis that may be procedural or related to stent placement within the renal pelvis. Electronically signed by: Rasheed Honeycutt M.D. Narrative 09/07/2025 3:22 PM CDT EXAMINATION: CT KUB STONE WO CONTRAST HISTORY: Renal stones TECHNIQUE: Transaxial computed tomographic images of the abdomen pelvis were obtained without intravenous contrast according to the standard protocol. COMPARISON: 08/08/2025 FINDINGS: Lung bases are clear. Heart size normal. No pericardial effusion. Liver is grossly normal on this noncontrast examination. No intrahepatic or extrahepatic biliary duct dilatation. Gallbladder surgically absent. Old granulosa disease of the spleen. Adrenal glands are normal. Pancreas is unremarkable. Right kidney: Overall stone burden has markedly improved. There is a residual cluster of stones in the lower pole measuring 5 mm. A nephroureteral stent extends from the upper pole calyx into the bladder. There are no stones seen within the renal pelvis or ureter. No hydronephrosis or hydroureter. Left kidney: Overall, stone burden has markedly improved. There is a residual cluster of stones seen within the lower pole collecting system measuring up to 9 mm. Additional tiny Steinstrasse are seen layering within the renal pelvis and lower pole collecting system. A nephroureteral stent extends from the renal pelvis into the bladder. There are no stones within the renal pelvis or ureter. There is mild stranding surrounding the renal pelvis and ureter, likely related to recent treatment. There is mild pelvicaliectasis, likely procedural or related to stent placement. There is no hydroureter. Multiple renal cysts. Bladder: Unremarkable. No stones seen within the bladder. Small bowel and colon are normal in caliber without wall thickening or obstruction. No intraperitoneal free air or fluid. No inguinal pelvic mesenteric or retroperitoneal adenopathy. Uterus is absent. Bone windows demonstrate no suspicious lytic or blastic lesions. Procedure Note Rasheed Honeycutt MD PhD - 09/07/2025 EXAMINATION: CT KUB STONE WO CONTRAST HISTORY: Renal stones TECHNIQUE: Transaxial computed tomographic images of the abdomen pelvis were obtained without intravenous contrast according to the standard protocol. COMPARISON: 08/08/2025 FINDINGS: Lung bases are clear. Heart size normal. No pericardial effusion. Liver is grossly normal on this noncontrast examination. No intrahepatic or extrahepatic biliary duct dilatation. Gallbladder surgically absent. Old granulosa disease of the spleen. Adrenal glands are normal. Pancreas is unremarkable. Right kidney: Overall stone burden has markedly improved. There is a residual cluster of stones in the lower pole measuring 5 mm. A nephroureteral stent extends from the upper pole calyx into the bladder. There are no stones seen within the renal pelvis or ureter. No hydronephrosis or hydroureter. Left kidney: Overall, stone burden has markedly improved. There is a residual cluster of stones seen within the lower pole collecting system measuring up to 9 mm. Additional tiny Steinstrasse are seen layering within the renal pelvis and lower pole collecting system. A nephroureteral stent extends from the renal pelvis into the bladder. There are no stones within the renal pelvis or ureter. There is mild stranding surrounding the renal pelvis and ureter, likely related to recent treatment. There is mild pelvicaliectasis, likely procedural or related to stent placement. There is no hydroureter. Multiple renal cysts. Bladder: Unremarkable. No stones seen within the bladder. Small bowel and colon are normal in caliber without wall thickening or obstruction. No intraperitoneal free air or fluid. No inguinal pelvic mesenteric or retroperitoneal adenopathy. Uterus is absent. Bone windows demonstrate no suspicious lytic or blastic lesions. IMPRESSION: 1. Interval reduction in stone burden in both kidneys as described above. 2. Mild left pelvicaliectasis that may be procedural or related to stent placement within the renal pelvis. Electronically signed by: Rasheed Honeycutt M.D. Genaro Mccurdy MD IM CT PROCEDURES Final Result * (ABNORMAL) Aerobic and anaerobic culture and gram stain Wound Kidney (08/31/2025 2:15 PM CDT) Direct Specimen Exam Stain: No polymorphonuclear leukocytes seen. No organisms seen. Comment:Testing performed by : [facility], [address] [place] [address]., [id number] Report Final Report: Light growth of: Carole albicans Susceptibility not performed on this isolate (.) [facility] Comment:Testing performed by : [facility], [address] [place] [address]., [id number] Organism CAROLE ALBICANS [facility] Wound (Kidney) 08/31/2025 2: 15 PM CDT 08/31/2025 4:47 PM CDT Narrative [facility] - 09/03/2025 11:35 AM CDT Kidney stones for culture Genaro Mccurdy MD LAB MICROBIOLOGY - GENER AL ORDERABLES Final Result Performing Organization Address City/[facility]/ZIP Co de Phone Number [facility] [address] [facility]. Department [place] [address] * FL Fluoroscopy < 1 Hour (08/31/2025 2:14 PM CDT) Narrative [facility] - 08/31/2025 2:15 PM CDT The images from this study are not interpreted by Radiology. Please refer to the physician's procedure / OR operative note. Genaro Mccurdy MD IMG FLUOROSCOPY PROCEDUR ES Final Result Performing Organization Address [facility] Co de Phone Number [email or web address] * Surgical pathology (08/31/2025 1:54 PM CDT) Tissue (Calculus/calculi /stone, gross and Chemical Analysis) 08/31/2025 1:54 PM CDT Comment:SENT FRESH Narrative PATHOLOGY [facility] - 09/01/2025 4:08 PM CDT EPIC results best viewed via link to PDF [facility] [place] [address] Note to Patients: This report may contain a detailed description of human tissue sent by a health care provider to the laboratory for pathologic evaluation. The content of this report is essential for diagnosis and may provide important critical findings. This information may be unfamiliar to patients to review without a medical professional present. It is advised that the patient review this report in the presence of a health care provider who can answer questions and explain the details. SURGICAL PATHOLOGY REPORT FINAL WITH ADDENDUM Patient Name: KRISTEN HERNANDEZ Gender: F : 1955 (Age: 69) [address]: [address] [place] [id number] [facility] #: [id number] Taken:08/31/2025 Received:08/31/2025 Reported: 09/01/2025 Patient Type: [facility] EP SAME Client [facility] Service: Surgery Location: Physician(s): Sudeep Kim M.D. Diagnosis: Kidney, stone, removal - Lithiasis (gross examination only, sent for chemical analysis) elsw/08/31/2025 16:47 By this signature, I attest that the above diagnosis is based upon my personal examination of the slides(and/or other material indicated in the diagnosis). Jana Taylor M.D., PH.D. Report Electronically Reviewed and Signed Out By Jana Taylor M.D., PH.D. 09/01/2025 16:08:02 History: The patient is a 69-year-old woman presenting with kidney stone. Operative procedure: Bilateral ureteroscopy, laser lithotripsy thulium, exchange stent ureteral. Specimen(s) Received: A: Kidney stones for chemical analysis Gross Description: Received in Bloody fluid, labeled with the patient s identifiers and kidney stones for chemical analysis consists of multiple brown multifaceted stone(s) admixed with hemorrhagic material measuring 2.4 by 0.6 x 0.4 cm in aggregate. Entirely submitted for chemical analysis. Jar 0. PA(s): Latasha Vang By this signature, I attest that the above diagnosis is based upon my personal examination of the slides(and/or other material). Addenda/Procedures Addendum Ordered:09/27/2025Status:Signed OutAddendum Complete:09/27/2025y:Rasheed Arce M.D., Ph.D.Addendum Signed Out:09/27/2025 Addendum Diagnosis A digital scan of the original reference lab report will begin on page two of this addendum. By this signature, I attest that the above diagnosis is based upon my personal examination of the slides(and/or other material indicated in the diagnosis). Rasheed Arce M.D., Ph.D.Report Electronically Reviewed and Signed Out By Rasheed Arce M.D., Ph.D. 09/27/2025 15:51:13 Microscopic slide review and interpretation for this case was performed at [facility], Department of Surgical Pathology, [address] [facility] [id number], [place] [address] CLIA # [id number] The performance characteristics of some immunohistochemical stains, fluorescence in-situ hybridization tests and immunophenotyping by flow cytometry cited in this report (if any) were determined by the Surgical Pathology and Flow Cytometry Departments at [facility] as part of an ongoing vice president quality assurance program and in compliance with federally mandated regulations drawn from the Clinical Laboratory Improvement Act of 1988 (CLIA '88). Some of these tests rely on the use of analyte specific reagents and are subject to specific labeling requirements by the US Food and Drug Administration. Such diagnostic tests may only be performed in a facility that is certified by the Department of Health and Human Services as a high complexity laboratory under CLIA '88. The FDA has determined that such clearance or approval is not necessary. This test is used for clinical purposes. It should not be regarded as investigational or for research. Nevertheless, federal rules concerning the medical use of analyte specific reagents require that the following disclaimer be attached to the report: This test was developed and its performance characteristics determined by the Surgical Pathology and Flow Cytometry Departments of [facility]. It has not been cleared or approved by the U. S. Food and Drug Administration. IMAGES AND SCANNED DOCUMENTS, IF INCLUDED, ONLY VIEWABLE IN PDF VERSION OF REPORT Genaro Mccurdy MD LAB PATHOLOGY ORDERABLES Final Result Performing Organization Address City/State/[facility] Co de Phone Number PATHOLOGY [facility] [phone] * NM AN ELECTIVE ENDOTRACHEAL AIRWAY, NM AN PROCEDURE PLACEHOLDER (08/31/2025 12:17 PM CDT) Narrative Nikkie Kwon CRNA - 08/31/2025 12:17 PM CDT Nikkie Kwon CRNA 08/31/2025 1:49 PM Airway Patient location: OR Urgency: elective Date/time: 08/31/2025 12:17 PM Indications for airway management: anesthesia Difficult airway: no Staff: Supervising provider: Genaro Hallman MD Placed by: TURF KEEPER: Nikkie Kwon CRNA Emergent airway documentation: Risks and benefits discussed: yes Consent obtained: yes Consent given by: patient Airway prep: Preoxygenated: yes Patient position: sniffing Mask difficulty assessment: 2 - vent by mask + OA or adjuvant Spontaneous ventilation during airway: absent Sedation level during airway: GA Final airway details: Final airway type: endotracheal airway Tube type: ETT ETT size: 7.0 mm Cuffed: yes Technique used for successful ETT placement: video laryngoscopy Devices/Methods used in placement: stylet Blade type: Zain Video blade type: Jiménez Blade size: 4 Cormack-Lehane (video): grade I - full view of glottis Cuff inflated with: air ETT to teeth: 21 cm Placement verified by: auscultation and CO2 detection Airway secured with: silk tape Additional comments: Atraumatic. Dentition and mucosa intact, same as pre-op. Neck neutral/midline throughout procedure. Eyes secured prior to ETT placement. Genaro Hallman MD ANESTHESIA ORDERABLES Edit ed Result - Final * FL Fluoroscopy < 1 Hour (08/24/2025 4:53 PM CDT) Narrative [facility] - 08/24/2025 4:53 PM CDT The images from this study are not interpreted by Radiology. Please refer to the physician's procedure / OR operative note. Genaro Mccurdy MD IMG FLUOROSCOPY PROCEDUR ES Final Result [facility] * Surgical pathology (08/24/2025 4:23 PM CDT) Tissue (Calculus/calculi /stone, gross and Chemical Analysis) 08/24/2025 4:23 PM CDT Comment:SURGEON REQUESTED CU LTURE TO BE DONE WELL ON RENAL CALCULUS Narrative PATHOLOGY [facility] - 08/31/2025 10:05 AM CDT EPIC results best viewed via link to PDF [facility] [place] [address] Note to Patients: This report may contain a detailed description of human tissue sent by a health care provider to the laboratory for pathologic evaluation. The content of this report is essential for diagnosis and may provide important critical findings. This information may be unfamiliar to patients to review without a medical professional present. It is advised that the patient review this report in the presence of a health care provider who can answer questions and explain the details. SURGICAL PATHOLOGY REPORT FINAL WITH ADDENDUM Patient Name: KRISTEN HERNANDEZ Gender: F : 1955 (Age: 69) Address: [address] [place] [address] Hospital #: [id number] Taken:08/24/2025 Received:08/24/2025 Reported: 08/31/2025 Patient Type: [facility] EP SAME Client [facility] Service: Surgery Location: Physician(s): Sudeep Kim M.D. Diagnosis: Renal, stone, removal - Lithiasis (gross examination only, sent for chemical analysis) [facility]/08/28/2025 12:48 By this signature, I attest that the above diagnosis is based upon my personal examination of the slides(and/or other material indicated in the diagnosis). Jana Taylor M.D., PH.D. Report Electronically Reviewed and Signed Out By Jana Taylor M.D., PH.D. 08/31/2025 10:05:22 History: The patient is a 69-year-old woman presenting with kidney stone. Operative procedure: Right ureteroscopy, thulium, laser lithotripsy, right ureteral stent exchange, laser lithotripsy thulium, and exchange stent ureteral. Specimen(s) Received: A: Renal calculus Gross Description: Received in Bloody fluid, labeled with the patient s identifiers and renal calculus consists of multiple brown sediment like stone(s) measuring 3.9 by 1.0 by 0.4 cm in aggregate. Entirely submitted for chemical analysis. Jar 0. PA(s): Latasha Vang By this signature, I attest that the above diagnosis is based upon my personal examination of the slides(and/or other material). Addenda/Procedures Addendum Ordered:09/07/2025Status:Signed OutAddendum Complete:09/07/2025y:Marc Boothe M.D.Addendum Signed Out:09/07/2025 Addendum Diagnosis A digital scan of the original reference lab report will begin on page two of this addendum. By this signature, I attest that the above diagnosis is based upon my personal examination of the slides(and/or other material indicated in the diagnosis). Marc Boothe M.D.Report Electronically Reviewed and Signed Out By Marc Boothe M.D. 09/07/2025 12:28:38 Microscopic slide review and interpretation for this case was performed at [facility], Department of Surgical Pathology, [address] [facility] [place] [id number], [place] [address] CLIA # [id number] The performance characteristics of some immunohistochemical stains, fluorescence in-situ hybridization tests and immunophenotyping by flow cytometry cited in this report (if any) were determined by the Surgical Pathology and Flow Cytometry Departments at [facility] as part of an ongoing vice president quality assurance program and in compliance with federally mandated regulations drawn from the Clinical Laboratory Improvement Act of 1988 (CLIA '88). Some of these tests rely on the use of analyte specific reagents and are subject to specific labeling requirements by the US Food and Drug Administration. Such diagnostic tests may only be performed in a facility that is certified by the Department of Health and Human Services as a high complexity laboratory under CLIA '88. The FDA has determined that such clearance or approval is not necessary. This test is used for clinical purposes. It should not be regarded as investigational or for research. Nevertheless, federal rules concerning the medical use of analyte specific reagents require that the following disclaimer be attached to the report: This test was developed and its performance characteristics determined by the Surgical Pathology and Flow Cytometry Departments of [facility]. It has not been cleared or approved by the U. S. Food and Drug Administration. IMAGES AND SCANNED DOCUMENTS, IF INCLUDED, ONLY VIEWABLE IN PDF VERSION OF REPORT Genaro Mccurdy MD LAB PATHOLOGY ORDERABLES Final Result PATHOLOGY [facility] [phone] * NM AN ELECTIVE ENDOTRACHEAL AIRWAY, NM AN PROCEDURE PLACEHOLDER (08/24/2025 3:22 PM CDT) Narrative Brett Yancey CRNA - 08/24/2025 3:22 PM CDT Brett Yancey CRNA 08/24/2025 3:23 PM Airway Patient location: OR Urgency: elective Indications for airway management: anesthesia Difficult airway: no Staff: Placed by: TURF KEEPER: Brett Yancey CRNA Emergent airway documentation: Risks and benefits discussed: yes Consent obtained: yes Consent given by: patient Airway prep: Preoxygenated: yes Patient position: sniffing Mask difficulty assessment: 1 - vent by mask Spontaneous ventilation during airway: absent Sedation level during airway: GA Final airway details: Final airway type: endotracheal airway Tube type: ETT ETT size: 6.5 mm Cuffed: yes Technique used for successful ETT placement: video laryngoscopy Devices/Methods used in placement: stylet Insertion site: oral Blade type: Zain Video blade type: Jiménez Blade size: 3 Cormack-Lehane (video): grade I - full view of glottis Cuff volume: 7 mL Cuff inflated with: air ETT to lips: 21 cm Placement verified by: auscultation and CO2 detection Airway secured with: silk tape Number of attempts: 1 us Delgado Freire MD ANESTHESIA ORDERABLES F inal Result * TRANSTHORACIC ECHO (TTE) COMPLETE W DOPPLER/CF W CONTRAST (08/22/2025 11:58 AM CDT) EF Mod BP 63 % CONS SCIMAGE Anatomical Region Laterality Modality Ultrasound 08/22/2025 10:5 1 AM CDT Narrative 08/22/2025 12:32 PM CDT [facility] [place] [address] Transthoracic Echocardiographic Report Patient Name: KRISTEN HERNANDEZ E : 1955 (69y 7m) Sex: F Study Date: 08/22/2025 10:51:01 AM Ht(Inch): 64 Wt(Lb): 160.94 BSA: 1.78 Law Firm Consultant: Unruly Holloway RDCS Location: [facility] Order Provider: BHARATHI MOSER Heart Rate: 75 BMI: 27.62 BP: 117 / 56 Ref Provider: BHARATHI MOSER PROCEDURES: Echocardiographic Report: Transthoracic complete echo with strain imaging and contrast, 2D, spectral and tissue Doppler, color flow Doppler, M-mode. Additional Procedures: Myocardial strain imaging was performed. Contrast: Contrast Enhancement was Employed: Due to suboptimal image quality with inadequate visualization of at least 2 of 16 LV wall segments in any view after initial imaging. Perflutren contrast was administered using the volume necessary to obtain adequate images. 0.4 ml Optison Administered, (2.6 ml wasted). 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 CONCLUSIONS: 1. Normal left ventricular cavity size based on 2D measurements. Mildly dilated left ventricle based on volume index. Normal LV wall thickness. Normal left ventricular systolic function. The Ejection Fraction (Price's) is measured at 63 %. Normal diastolic function. The average global longitudinal strain is normal. 2. There are no regional wall motion abnormalities. 3. Normal right ventricular size. Normal right ventricular systolic function. 4. Mild mitral valve regurgitation. 5. The Estimated PASP is : 29 mmHg. COMPARISONS: No change compared to prior study on: 06/12/25. ATTESTATION: I have personally reviewed and interpreted this study without fellow or resident. DISCLAIMER: The study images and the final report will be retained in the patient chart by the Echo Laboratory for the legally required time period. This chart constitutes the legal record of any testing performed. FINDINGS: Left Ventricle: Normal left ventricular cavity size based on 2D measurements. Mildly dilated left ventricle based on volume index. Normal LV wall thickness. Normal left ventricular systolic function. The Ejection Fraction (Price's) is measured at 63 %. Normal diastolic function. The average global longitudinal strain is normal. The LV global strain is: -18.6 %. Regional Wall Motion: There are no regional wall motion abnormalities. Right Ventricle: Normal right ventricular size. Normal right ventricular systolic function. Left Atrium: Mildly dilated left atrium. Right Atrium: Right atrial dilatation. Atrial Septum: Normal interatrial septum. Mitral Valve: Mitral valve leaflets appear mildly thickened. Mild mitral valve regurgitation. No stenosis present. Aortic Valve: Normal trileaflet aortic valve. No aortic regurgitation. No aortic valve stenosis. The mean transaortic gradient is 7 mmHg. The aortic valve area by the continuity equation (using VTI) is 1.5 cm2. Aortic valve dimensionless index is 0.60. Tricuspid Valve: Normal tricuspid valve structure. Mild tricuspid regurgitation. No tricuspid valve stenosis. Pulmonic Valve: Normal pulmonic valve structure. Mild pulmonic regurgitation. No pulmonic valve stenosis present. Pericardium: Normal pericardium without pericardial effusion. Aorta: Normal aortic root size at sinuses of Valsalva. The ascending aorta is normal in size when indexed. IVC: The IVC was <2.1 cm and collapsibility >50%. (est. RA pressure 0-5 mmHg). PASP: Normal estimated pulmonary artery systolic pressure. The Estimated PASP is : 29 mmHg. Rhythm: Normal Sinus rhythm was seen during the study. MEASUREMENTS: 2D/MM Value Range Doppler Value Range LVIDd 2D 4.8 cm [ 3.8 - 5.2 ] AV Peak Nilay 1.9 m/s [ 1.0 - 1.7 ] LVIDs 2D 3.1 cm [ 2.2 - 3.5 ] AV Peak PG 14 mmHg IVSd 2D 0.7 cm [ 0.6 - 0.9 ] AV Mean PG 7 mmHg LVPWd 2D 0.7 cm [ 0.6 - 0.9 ] AV VTI 43 cm LV Thickness Ratio 1.0 LVOT Peak Nilay 1.0 m/s [ 0.7 - 1.1 ] LV FS 2D 35.16 % [ 27.00 - 45.00 ] LVOT Peak PG 4 mmHg LV Mass 2D 110.42 g LVOT Mean PG 2 mmHg LV Mass Index 2D 61.91 g/m2 LVOT VTI 26 cm RWT 0.29 LVOT Diam 1.8 cm EDV Mod BP 132 ml [ 46 - 106 ] CESAR VTI 1.5 cm2 LV EDV Index 74 ml/m2 LVOT/AV VTI 0.60 - Dimensionless index (DVI) ESV Mod BP 49 ml [ 14 - 42 ] MV E Peak Nilay 0.82 m/s [ 0.60 - 1.30 ] EF Mod BP 63 % [ 54 - 74 ] MV A Peak Nilay 0.75 m/s [ 1.00 - 1.20 ] LV GLS -18.6 % [ -25.0 - -18.0 ] MV E/A 1.1 ratio [ 0.8 - 1.5 ] LA Length 4C 6.7 cm MV Decel [place] 412 LA Length 2C 6.2 cm MV Decel Time 200 msec [ 104 - 258 ] LA Volume BP 68 ml Med E` Nilay 9.7 cm/sec [ 8.0 - 25.0 ] LA Volume Index 38 ml/m2 [ 16 - 34 ] Lat E` Nilay 12.3 cm/sec [ 10.0 - 25.0 ] MV Annulus 2D 3.0 cm Average E/E` 7 RV Base Dimen 2D 4.2 cm [ 2.5 - 4.2 ] MV Alias Nilay 0.307 m/s RV Mid Dimen 2D 2.8 cm MR Flow 30.9 ml/sec RV Length Dimen 2D 7.8 cm MR PISA 0.4 TAPSE 2.2 cm [ 1.7 - 5.0 ] RV S` 11.9 cm/sec RA Volume 54 ml TR Peak Nilay 2.6 m/s [ 1.0 - 2.8 ] RA Volume Index 30 ml/m2 TR Peak PG 27 mmHg AoR Diam 2D 2.9 cm [ 2.7 - 3.7 ] PV Peak Nilay 1.1 m/s [ 0.4 - 0.8 ] Ao Root Index 1.6 cm/m2 [ 1.0 - 2.0 ] PV Peak PG 5 mmHg Asc Ao Diam 2D 2.6 cm PI ED Nilay 83.6 m/sec Asc Ao Index 1.5 cm/m2 TV Annulus 2D 3.5 cm Electronically Signed By: Walter Ng MD 08/22/2025 12:32:28 PM CDT Procedure Note Walter Jean-Baptiste MD - 08/22/2025 [facility] [place] [address] Transthoracic Echocardiographic Report Patient Name: KRISTEN HERNANDEZ E : 1955 (69y 7m) Sex: F Study Date: 08/22/2025 10:51:01 AM Ht(Inch): 64 Wt(Lb): 160.94 BSA: 1.78 Law Firm Consultant: Unruly Holloway RDCS Location: [facility] Order Provider:BHARATHI MOSER Heart Rate: 75 BMI: 27.62 BP: 117 / 56 Ref Provider: BHARATHI MOSER PROCEDURES: Echocardiographic Report: Transthoracic complete echo with strain imagingand contrast, 2D, spectral and tissue Doppler, color flow Doppler, M-mode. Additional Procedures: Myocardial strain imaging was performed. Contrast: Contrast Enhancement was Employed: Due to suboptimal imagequality with inadequate visualization of at least 2 of 16 LV wall segments in any viewafter initial imaging. Perflutren contrast was administered using the volume necessaryto obtain adequate images. 0.4 ml Optison Administered, (2.6 ml wasted). INDICATIONS: Z86.79 Personal history of other diseases of the circulatory system,I25.10 Atherosclerotic heart disease of makah coronary artery without anginapectoris, and Z01.810 Encounter for preprocedural cardiovascular examination. CONCLUSIONS: 1. Normal left ventricular cavity size based on 2D measurements. Mildlydilated left ventricle based on volume index. Normal LV wall thickness. Normal leftventricular systolic function. The Ejection Fraction (Price's) is measured at 63 %.Normal diastolic function. The average global longitudinal strain is normal. 2. There are no regional wall motion abnormalities. 3. Normal right ventricular size. Normal right ventricular systolicfunction. 4. Mild mitral valve regurgitation. 5. The Estimated PASP is : 29 mmHg. COMPARISONS: No change compared to prior study on: 06/12/25. ATTESTATION: I have personally reviewed and interpreted this study without fellow orresident. DISCLAIMER: The study images and the final report will be retained in the patientchart by the Echo Laboratory for the legally required time period. This chart constitutesthe legal record of any testing performed. FINDINGS: Left Ventricle: Normal left ventricular cavity size based on 2Dmeasurements. Mildly dilated left ventricle based on volume index. Normal LV wall thickness.Normal left ventricular systolic function. The Ejection Fraction (Price's) ismeasured at 63 %. Normal diastolic function. The average global longitudinal strain isnormal. The LV global strain is: -18.6 %. Regional Wall Motion: There are no regional wall motion abnormalities. Right Ventricle: Normal right ventricular size. Normal right ventricularsystolic function. Left Atrium: Mildly dilated left atrium. Right Atrium: Right atrial dilatation. Atrial Septum: Normal interatrial septum. Mitral Valve: Mitral valve leaflets appear mildly thickened. Mild mitralvalve regurgitation. No stenosis present. Aortic Valve: Normal trileaflet aortic valve. No aortic regurgitation. Noaortic valve stenosis. The mean transaortic gradient is 7 mmHg. The aortic valve areaby the continuity equation (using VTI) is 1.5 cm2. Aortic valve dimensionlessindex is 0.60. Tricuspid Valve: Normal tricuspid valve structure. Mild tricuspidregurgitation. No tricuspid valve stenosis. Pulmonic Valve: Normal pulmonic valve structure. Mild pulmonicregurgitation. No pulmonic valve stenosis present. Pericardium: Normal pericardium without pericardial effusion. Aorta: Normal aortic root size at sinuses of Valsalva. The ascending aortais normal in size when indexed. IVC: The IVC was <2.1 cm and collapsibility >50%. (est. RA pressure 0-5mmHg). PASP: Normal estimated pulmonary artery systolic pressure. The EstimatedPASP is : 29 mmHg. Rhythm: Normal Sinus rhythm was seen during the study. MEASUREMENTS: 2D/MM Value Range DopplerValue Range LVIDd 2D 4.8 cm [ 3.8 - 5.2 ] AV Peak Vel1.9 m/s [ 1.0 - 1.7 ] LVIDs 2D 3.1 cm [ 2.2 - 3.5 ] AV Peak PG14 mmHg IVSd 2D 0.7 cm [ 0.6 - 0.9 ] AV Mean PG7 mmHg LVPWd 2D 0.7 cm [ 0.6 - 0.9 ] AV VTI43 cm LV Thickness Ratio 1.0 LVOT Peak Vel1.0 m/s [ 0.7 - 1.1 ] LV FS 2D 35.16 % [ 27.00 - 45.00 ] LVOT Peak PG4 mmHg LV Mass 2D 110.42 g LVOT Mean PG2 mmHg LV Mass Index 2D 61.91 g/m2 LVOT VTI26 cm RWT 0.29 LVOT Diam1.8 cm EDV Mod BP 132 ml [ 46 - 106 ] CESAR VTI1.5 cm2 LV EDV Index 74 ml/m2 LVOT/AV VTI0.60 - Dimensionless index (DVI) ESV Mod BP 49 ml [ 14 - 42 ] MV E Peak Vel0.82 m/s [ 0.60 - 1.30 ] EF Mod BP 63 % [ 54 - 74 ] MV A Peak Vel0.75 m/s [ 1.00 - 1.20 ] LV GLS -18.6 % [ -25.0 - -18.0 ] MV E/A1.1 ratio [ 0.8 - 1.5 ] LA Length 4C 6.7 cm MV Decel [id number] LA Length 2C 6.2 cm MV Decel [id number] msec [ 104 - 258 ] LA Volume BP 68 ml Med E` Vel9.7 cm/sec [ 8.0 - 25.0 ] LA Volume Index 38 ml/m2 [ 16 - 34 ] Lat E` Vel12.3 cm/sec [ 10.0 - 25.0 ] MV Annulus 2D 3.0 cm Average E/E`7 RV Base Dimen 2D 4.2 cm [ 2.5 - 4.2 ] MV Alias Vel0.307 m/s RV Mid Dimen 2D 2.8 cm MR Flow30.9 ml/sec RV Length Dimen 2D 7.8 cm MR PISA0.4 TAPSE 2.2 cm [ 1.7 - 5.0 ] RV S`11.9 cm/sec RA Volume 54 ml TR Peak Vel2.6 m/s [ 1.0 - 2.8 ] RA Volume Index 30 ml/m2 TR Peak PG27 mmHg AoR Diam 2D 2.9 cm [ 2.7 - 3.7 ] PV Peak Vel1.1 m/s [ 0.4 - 0.8 ] Ao Root Index 1.6 cm/m2 [ 1.0 - 2.0 ] PV Peak PG5 mmHg Asc Ao Diam 2D 2.6 cm PI ED Vel83.6 m/sec Asc Ao Index1.5 cm/m2 TV Annulus 2D3.5 cm Electronically Signed By: Walter Ng MD 08/22/2025 12:32:28 PM CDT Bharathi Moser NP CV ECHO PROCEDURES Final Result * (ABNORMAL) Pro B-type natriuretic peptide (08/16/2025 10:51 AM CDT) [facility] proBNP 3,146(H) 0 - 301 pg/mL [facility] - 01 Comment: The following cut-points have been suggested for the use of proBNP for the diagnostic evaluation of heart failure (HF) in patients with acute dyspnea: Modality Age Optimal Cut (years) Point Diagnosis (rule in HF) <50 450 pg/mL 50 - 75 900 pg/mL >75 1800 pg/mL Exclusion (rule out HF) Age independent 300 pg/mL Blood 08/16/2025 10:5 1 AM CDT 08/16/2025 Narrative [facility] - 08/17/2025 2:10 PM CDT Performed at: [address] [place] [id number] Radiology Tech: Dago Mckinley PhD, Phone: [phone] us Bharathi Moser NP LAB BLOOD ORDERABLES Fin al Result Performing Organization Address [facility] de Phone Number [facility] - 01 * Urine culture Urine, clean voided (08/15/2025 11:46 AM CDT) Pathologist [facility] Urine culture Final report [facility] - 01 Result 1 Comment [facility] - 01 Comment: Mixed urogenital bogdan 25,000-50,000 colony forming units per mL Urine, clean voided 08/15/2025 11:46 AM CDT 08/15/2025 Comment:UR Narrative [facility] - 08/16/2025 9:08 PM CDT Performed at: [facility] [address] [id number] Radiology Tech: Dago Mckinley PhD, Phone: [phone] us Genaro Mccurdy MD LAB MICROBIOLOGY - GENER AL ORDERABLES Final Result Performing Organization Address [facility] de Phone Number [facility] - 01 * Troponin I high-sensitivity 4-hour (08/10/2025 1:13 PM CDT) Trop I hs 8 <=17 ng/L Comment: Interpretive Data For further hscTnI resources including the diagnostic algorithm and an aid in interpretation, copy and paste this link: [email or web address].testcatalog.org/show/hsTrop-1 Current Interpretive Data last revised 2020. Trop I hs delta -1 ng/L [facility] Trop I hs interp Insignificant [facility] Blood 08/10/2025 1:13 PM CDT 08/10/2025 1:24 PM CDT us Patricia Storey MD LAB BLOOD ORDERABLES Final R esult Performing Organization Address City/[facility]/ZIP Co de Phone Number [facility] [place] [address] * Troponin I high-sensitivity 2-hour (08/10/2025 11:56 AM CDT) Trop I hs 9 <=17 ng/L Comment: Interpretive Data For further hscTnI resources including the diagnostic algorithm and an aid in interpretation, copy and paste this link: [email or web address] [email or web address] [email or web address]/show/hsTrop-1 Current Interpretive Data last revised 2020. Trop I hs delta See Comment ng/L [facility] Comment:Inappropriate collec tion time to report a delta. Trop I hs pct delta See Comment % [facility] Comment:Inappropriate collec tion time to report a delta. Trop I hs interp See Comment [facility] Comment:Inappropriate collec tion time to report a delta. Blood 08/10/2025 11:5 6 AM CDT 08/10/2025 12:15 PM CDT us Patricia Storey MD LAB BLOOD ORDERABLES Final R esult Performing Organization Address City/[facility] Co de Phone Number [facility] [place] [address] * Troponin I high-sensitivity series (baseline, 2hr, 4hr, 6hr) (08/10/2025 8:44 AM CDT) Trop I hs 9 <=17 ng/L Comment: Interpretive Data For further hscTnI resources including the diagnostic algorithm and an aid in interpretation, copy and paste this link: [email or web address] [email or web address] [email or web address]/show/hsTrop-[email or web address] Current Interpretive Data last revised 2020. Blood 08/10/2025 8:44 AM CDT 08/10/2025 9:09 AM CDT us Patricia Storey MD LAB BLOOD ORDERABLES Final R esult [facility] [place] [address] * Lactate (08/10/2025 5:17 AM CDT) Lactate 1.7 0.7 - 2.0 mmol/L Blood 08/10/2025 5:17 AM CDT 08/10/2025 5:36 AM CDT us Shayna Guillermo MD LAB BLOOD ORDERABLES Final Result Performing Organization Address [facility] Co de Phone Number [facility] [place] [address] * eGFR (08/10/2025 5:17 AM CDT) eGFR 63 >=60 mL/min/1. 73 m2 Comment: Interpretive Data Reference Interval Normal >/= 90 mL/min/1.73m2 Mildly decreased* 60 - 89 mL/min/1.73m2 Mildly to moderately decreased 45 - 59 mL/min/1.73m2 Moderately to severely decreased 30 - 44 mL/min/1.73m2 Severely decreased 15 - 29 mL/min/1.73m2 Kidney Failure < 15 mL/min/1.73m2 *Relative to young adult level Estimated glomerular filtration rate is determined by the 2020 CKD-EPI equation recommended by the National Kid[employer] (A Unifying Approach to GFR Estimation: Recommendations of the NKF-ASK Task Force on Reassessing the Inclusion of Race in Diagnosing Kidney Disease, JASN 2020). The CKD-EPI equation should not be used for patients with unstable renal function and has not been validated in children and those over 70. Current interpretive data was last reviewed 2021. Blood 08/10/2025 5:17 AM CDT 08/10/2025 5:36 AM CDT Jose Reece MD LAB BLOOD ORDERABLES F inal Result Performing Organization Address [facility] de Phone Number [facility] [place] [address] * (ABNORMAL) CBC without differential (08/10/2025 5:17 AM CDT) Pathologist [facility] [place] WBC 6.60 3.80 - 9.90 K/cumm Hgb 8.5(L) 11.9 - 15.5 g/dL [facility] Hct 26.2(L) 35.6 - 45.5 % [facility] Plt 204 150 - 400 K/cumm [facility] MPV 9.5 9.1 - 12.3 fL [facility] RBC 2.82(L) 3.90 - 5.20 M/cumm [facility] MCV 92.9 81.3 - 96.4 fL [facility] MCH 30.1 27.1 - 33.3 pg [facility] MCHC 32.4 32.3 - 35.7 g/dL [facility] RDW CV 17.3(H) 11.1 - 14.9 % [facility] RDW SD 59.3(H) 35.7 - 48.1 fL [facility] NRBC abs 0.00 0.00 - 0.01 K/cumm [facility] Blood 08/10/2025 5:17 AM CDT 08/10/2025 5:37 AM CDT Jose Reece MD LAB BLOOD ORDERABLES F inal Result Performing Organization Address [facility]/ZIP Co de Phone Number [facility] [place] [address] * (ABNORMAL) Basic metabolic panel (08/10/2025 5:17 AM CDT) Pathologist [facility] [place] Sodium 140 135 - 145 mmol/L Potassium, pl 3.4 3.3 - 4.9 mmol/L [facility] Chloride 110 97 - 110 mmol/L [facility] CO2 22 22 - 32 mmol/L [facility] Anion gap 8 2 - 15 mmol/L [facility] BUN 22 6 - 25 mg/dL [facility] Creatinine 0.97 0.60 - 1.10 mg/dL [facility] Glucose 144 70 - 199 mg/dL [facility] Comment: Interpretive Data Fasting glucose >/= 126 mg/dl is diagnostic for diabetes. Fasting is defined as no caloric intake for at least 8 hours. Fasting glucose between 100 mg/dl to 125 mg/dl is diagnostic of prediabetes. In a patient with classic symptoms of hyperglycemia or hyperglycemic crisis, a random glucose >/= 200 mg/dl is diagnostic for diabetes. In the absence of unequivocal hyperglycemia, results should be confirmed by repeat testing. The classification and Diagnosis of Diabetes Diabetes Care 2021; 46: S19-S40. Current interpretive data was last revised 2022. Calcium 8.2(L) 8.5 - 10.3 mg/dL [facility] Blood 08/10/2025 5:17 AM CDT 08/10/2025 5:36 AM CDT us Jose Reece MD LAB BLOOD ORDERABLES F inal Result [facility] Department [place] [address] * Lactate (08/09/2025 1:28 PM CDT) Pathologist [facility] [place] Lactate 1.0 0.7 - 2.0 mmol/L Blood 08/09/2025 1:28 PM CDT 08/09/2025 2:40 PM CDT us Shayna Guillermo MD LAB BLOOD ORDERABLES Final Result [facility] Department [place] [address] * eGFR (08/09/2025 5:47 AM CDT) Pathologist [facility] [place] eGFR 66 >=60 mL/min/1. 73 m2 Comment: Interpretive Data Reference Interval Normal >/= 90 mL/min/1.73m2 Mildly decreased* 60 - 89 mL/min/1.73m2 Mildly to moderately decreased 45 - 59 mL/min/1.73m2 Moderately to severely decreased 30 - 44 mL/min/1.73m2 Severely decreased 15 - 29 mL/min/1.73m2 Kidney Failure < 15 mL/min/1.73m2 *Relative to young adult level Estimated glomerular filtration rate is determined by the 2020 CKD-EPI equation recommended by the National Kidney Foundation (A Unifying Approach to GFR Estimation: Recommendations of the NKF-ASK Task Force on Reassessing the Inclusion of Race in Diagnosing Kidney Disease, JASN 2020). The CKD-EPI equation should not be used for patients with unstable renal function and has not been validated in children and those over 70. Current interpretive data was last reviewed 2021. Blood 08/09/2025 5:47 AM CDT 08/09/2025 6:23 AM CDT us Jose Reece MD LAB BLOOD ORDERABLES F inal Result [facility] Department [place] [address] * (ABNORMAL) CBC without differential (08/09/2025 5:47 AM CDT) [facility] WBC 5.70 3.80 - 9.90 K/cumm Hgb 9.3(L) 11.9 - 15.5 g/dL [facility] Hct 29.1(L) 35.6 - 45.5 % [facility] Plt 205 150 - 400 K/cumm [facility] MPV 9.3 9.1 - 12.3 fL [facility] RBC 3.07(L) 3.90 - 5.20 M/cumm [facility] MCV 94.8 81.3 - 96.4 fL [facility] MCH 30.3 27.1 - 33.3 pg [facility] MCHC 32.0(L) 32.3 - 35.7 g/dL [facility] RDW CV 17.3(H) 11.1 - 14.9 % [facility] RDW SD 60.8(H) 35.7 - 48.1 fL [facility] NRBC abs 0.00 0.00 - 0.01 K/cumm [facility] Blood 08/09/2025 5:47 AM CDT 08/09/2025 6:23 AM CDT us Jose Reece MD LAB BLOOD ORDERABLES F inal Result [facility] Department [place] [address] * (ABNORMAL) Basic metabolic panel (08/09/2025 5:47 AM CDT) Sodium 142 135 - 145 mmol/L Potassium, pl 4.2 3.3 - 4.9 mmol/L [facility] Chloride 111(H) 97 - 110 mmol/L [facility] CO2 19(L) 22 - 32 mmol/L [facility] Anion gap 12 2 - 15 mmol/L [facility] BUN 31(H) 6 - 25 mg/dL [facility] Creatinine 0.94 0.60 - 1.10 mg/dL [facility] Glucose 127 70 - 199 mg/dL [facility] Comment: Interpretive Data Fasting glucose >/= 126 mg/dl is diagnostic for diabetes. Fasting is defined as no caloric intake for at least 8 hours. Fasting glucose between 100 mg/dl to 125 mg/dl is diagnostic of prediabetes. In a patient with classic symptoms of hyperglycemia or hyperglycemic crisis, a random glucose >/= 200 mg/dl is diagnostic for diabetes. In the absence of unequivocal hyperglycemia, results should be confirmed by repeat testing. The classification and Diagnosis of Diabetes Diabetes Care 2021; 46: S19-S40. Current interpretive data was last revised 2022. Calcium 8.7 8.5 - 10.3 mg/dL [facility] Blood 08/09/2025 5:47 AM CDT 08/09/2025 6:23 AM CDT Jose Reece MD LAB BLOOD ORDERABLES F inal Result Performing Organization Address [facility] Co de Phone Number [facility] Department [place] [address] * Urine culture Urine, bladder (08/08/2025 9:19 PM CDT) Report Final Report: Less than 100,000 colonies/mL (clinically insignificant growth based on current clinical standards) Organism (CLINICALLY INSIGNIFICANT GROWTH [facility] Urine, bladder 08/08/2025 9: 19 PM CDT 08/08/2025 10:08 PM CDT Narrative [facility] - 08/10/2025 8:25 AM CDT Indications for Culture:->Urology patient Specimen received in a sterile container. Specimen collected in the operating room. Testing performed by [facility] ([phone]) us Toby Johnson MD LAB MICROBIOLO GY - GENERAL ORDERABLES Final Result Performing Organization Address [facility] de Phone Number [facility] Department [place] [address] * FL Fluoroscopy < 1 Hour (08/08/2025 9:17 PM CDT) Narrative [email or web address] - 08/08/2025 9:18 PM CDT The images from this study are not interpreted by Radiology. Please refer to the physician's procedure / OR operative note. Toby Johnson MD IMG FLUOROSCOP Y PROCEDURES Final Result Performing Organization Address [facility] Co de Phone Number [email or web address] * NM AN ELECTIVE ENDOTRACHEAL AIRWAY, NM AN PROCEDURE PLACEHOLDER (08/08/2025 8:48 PM CDT) Narrative Jalyn Cardoso CRNA - 08/08/2025 8:48 PM CDT JanaeJalyn adrian CRNA 08/08/2025 8:49 PM Airway Patient location: OR Urgency: elective Indications for airway management: anesthesia Difficult airway: no Staff: Supervising provider: Jose Hernandes MD Placed by: TURF KEEPER: Jalyn Cardoso CRNA Emergent airway documentation: Risks and benefits discussed: yes Consent obtained: yes Consent given by: patient Airway prep: Preoxygenated: yes Patient position: sniffing Mask difficulty assessment: 0 - not attempted Spontaneous ventilation during airway: absent Sedation level during airway: GA Final airway details: Final airway type: endotracheal airway Tube type: ETT ETT size: 7.0 mm Cuffed: yes Technique used for successful ETT placement: direct laryngoscopy Insertion site: oral Blade type: Addison Blade size: 2 Cormack-Lehane (direct): grade IIa - partial view of glottis Cuff inflated with: air Placement verified by: auscultation and CO2 detection Airway secured with: silk tape Number of attempts: 1 us Jose Hernandes MD ANESTHESIA ORDERABLES Ves[place] l Result * (ABNORMAL) Lactate (08/08/2025 5:52 PM CDT) Lactate 2.1(H) 0.7 - 2.0 mmol/L Blood 08/08/2025 5:52 PM CDT 08/08/2025 6:48 PM CDT Shayna Guillermo MD LAB BLOOD ORDERABLES Final Result Performing Organization Address City/State/ZIP Co mn Phone Number [facility] [place] [address] * CT Abdomen Pelvis WO Contrast (08/08/2025 4:00 PM CDT) Anatomical Region Laterality Modality Body N/A Computed Tomogra phy 08/08/2025 5:1 5 PM CDT Impressions 08/08/2025 5:17 PM CDT 1. No new obstructing renal calculus. 2. Unchanged bilateral nonobstructing stones with developing staghorn transformation of the left renal stone. 3. Interval placement of right ureteral stent positioned proximally in the renal pelvis and distally within the bladder. Dictated by: Timoteo Guevara M.D. The radiology attending physician has personally reviewed this study, and had reviewed and/or edited this written report and agrees with it. Electronically signed by: Justina Nichols M.D. Narrative 08/08/2025 5:17 PM CDT EXAMINATION: Computed tomography of the abdomen and pelvis without intravenous contrast HISTORY: 69-year-old female with flank pain. TECHNIQUE: Transaxial computed tomographic images of the abdomen and pelvis were obtained without intravenous contrast according to the standard protocol. COMPARISON: Comparison CT dated 06/05/2025. FINDINGS: No pleural effusion, pulmonary consolidation, or suspicious pulmonary nodule in the lung bases. Heart size is mildly enlarged. Postsurgical changes of Ruby-en-Y gastric bypass. Small hiatal hernia. No suspicious liver lesions. Gallbladder surgically absent. No intrahepatic or extrahepatic biliary ductal dilatation. Pancreas is unremarkable. Old granulomatous disease within the spleen. Adrenal glands are unremarkable. The left kidney is unremarkable with no hydronephrosis. 1.6 cm nonobstructing stone in the left kidney with branches in the calyces. Interval placement of right ureteral stent with proximal end in the renal pelvis and distal end in the bladder. Unchanged 1.8 cm stone in the proximal right ureter with decreased right hydronephrosis. There is a second nonobstructing 4 mm stone within the lower pole of the right kidney. There is no hydroureter. There is mild fat stranding around the right renal collection system, which is increased from prior. Previously noted gas within the right renal collection system has resolved. The urinary bladder is moderately distended. Uterus is surgically absent. No suspicious adnexal lesions. Normal course and caliber of the small and large bowel with small stool volume. The appendix is not seen, though there is no evidence of acute appendicitis. There is no pneumoperitoneum. There are no abnormally enlarged abdominal or pelvic lymph nodes. Mild descending aorta atherosclerotic calcification. No suspicious bone lesion. Mild degenerative changes of the spine. Procedure Note Justina Nichols MD - 08/08/2025 EXAMINATION: Computed tomography of the abdomen and pelvis without intravenous contrast HISTORY: 69-year-old female with flank pain. TECHNIQUE: Transaxial computed tomographic images of the abdomen and pelvis were obtained without intravenous contrast according to the standard protocol. COMPARISON: Comparison CT dated 06/05/2025. FINDINGS: No pleural effusion, pulmonary consolidation, or suspicious pulmonary nodule in the lung bases. Heart size is mildly enlarged. Postsurgical changes of Ruby-en-Y gastric bypass. Small hiatal hernia. No suspicious liver lesions. Gallbladder surgically absent. No intrahepatic or extrahepatic biliary ductal dilatation. Pancreas is unremarkable. Old granulomatous disease within the spleen. Adrenal glands are unremarkable. The left kidney is unremarkable with no hydronephrosis. 1.6 cm nonobstructing stone in the left kidney with branches in the calyces. Interval placement of right ureteral stent with proximal end in the renal pelvis and distal end in the bladder. Unchanged 1.8 cm stone in the proximal right ureter with decreased right hydronephrosis. There is a second nonobstructing 4 mm stone within the lower pole of the right kidney. There is no hydroureter. There is mild fat stranding around the right renal collection system, which is increased from prior. Previously noted gas within the right renal collection system has resolved. The urinary bladder is moderately distended. Uterus is surgically absent. No suspicious adnexal lesions. Normal course and caliber of the small and large bowel with small stool volume. The appendix is not seen, though there is no evidence of acute appendicitis. There is no pneumoperitoneum. There are no abnormally enlarged abdominal or pelvic lymph nodes. Mild descending aorta atherosclerotic calcification. No suspicious bone lesion. Mild degenerative changes of the spine. IMPRESSION: 1. No new obstructing renal calculus. 2. Unchanged bilateral nonobstructing stones with developing staghorn transformation of the left renal stone. 3. Interval placement of right ureteral stent positioned proximally in the renal pelvis and distally within the bladder. Dictated by: Timoteo Guevara M.D. The radiology attending physician has personally reviewed this study, and had reviewed and/or edited this written report and agrees with it. Electronically signed by: Justina Nichols M.D. us Shayna Guillermo MD [facility]ED[place] Final Re sult * (ABNORMAL) Lactate (08/08/2025 2:34 PM CDT) Pathologist [facility] [place] Lactate 2.9(H) 0.7 - 2.0 mmol/L Blood 08/08/2025 2:34 PM CDT 08/08/2025 2:52 PM CDT Shayna Guillermo MD LAB BLOOD ORDERABLES Final Result Performing Organization Address [facility] de Phone Number [facility] [place] [address] * (ABNORMAL) Blood gas, venous (08/08/2025 2:34 PM CDT) [facility] pH, Venous 7.27(L) 7.32 - 7.43 PCO2, Venous 36(L) 40 - 50 mmHg [facility] PO2, Venous 46 mmHg [facility] Comment: Interpretive Data No Reference Range Established Current Interpretive Data was last revised on 2018. HCO3 Venous, Calculated 16(L) 20 - 30 mmol/L [facility] BE, venous -10 mmol/L [facility] Comment: Interpretive Data No Reference Range Established Current Interpretive Data was last revised on 2018. Blood 08/08/2025 2:34 PM CDT 08/08/2025 2:44 PM CDT Result [facility] Shayna Guillermo MD LAB BLOOD ORDERABLES Final Result Performing Organization Address [facility] de Phone Number [facility] [place] [address] * (ABNORMAL) eGFR (08/08/2025 7:51 AM CDT) Pathologist [facility] [place] eGFR 39(L) >=60 mL/min/1. 73 m2 Comment: Interpretive Data Reference Interval Normal >/= 90 mL/min/1.73m2 Mildly decreased* 60 - 89 mL/min/1.73m2 Mildly to moderately decreased 45 - 59 mL/min/1.73m2 Moderately to severely decreased 30 - 44 mL/min/1.73m2 Severely decreased 15 - 29 mL/min/1.73m2 Kidney Failure < 15 mL/min/1.73m2 *Relative to young adult level Estimated glomerular filtration rate is determined by the 2020 CKD-EPI equation recommended by the National Kidney Foundation (A Unifying Approach to GFR Estimation: Recommendations of the NKF-ASK Task Force on Reassessing the Inclusion of Race in Diagnosing Kidney Disease, JASN 202). The CKD-EPI equation should not be used for patients with unstable renal function and has not been validated in children and those over 70. Current interpretive data was last reviewed 2021. Blood 08/08/2025 7:51 AM CDT 08/08/2025 8:01 AM CDT us Anusha Lee MD LAB BLOOD OR DERABLES Final Result [facility] Department [place] [address] * Differential, auto (08/08/2025 7:51 AM CDT) Neutrophil abs 2.27 1.50 - 6.50 K/cumm Imm gran abs 0.02 0.00 - 0.10 K/cumm [facility] Lymphocyte abs 0.94 0.80 - 3.30 K/cumm [facility] Monocyte abs 0.33 0.20 - 0.80 K/cumm [facility] Eosinophil abs 0.08 0.00 - 0.50 K/cumm [facility] Basophil abs 0.04 0.00 - 0.10 K/cumm [facility] Neutrophil pct 61.7 % [facility] Comment: Interpretive Data Percent cell count reference ranges are not reported, since discordance with absolute values may lead to misinterpretation of CBC data. Current Interpretive Data was last revised on 2018. Imm gran pct 0.5 % [facility] Comment: Interpretive Data Percent cell count reference ranges are not reported, since discordance with absolute values may lead to misinterpretation of CBC data. Current Interpretive Data was last revised on 2018. Lymphocyte pct 25.5 % [facility] Comment: Interpretive Data Percent cell count reference ranges are not reported, since discordance with absolute values may lead to misinterpretation of CBC data. Current Interpretive Data was last revised on 2018. Monocyte pct 9.0 % [facility] Comment: Interpretive Data Percent cell count reference ranges are not reported, since discordance with absolute values may lead to misinterpretation of CBC data. Current Interpretive Data was last revised on 2018. Eosinophil pct 2.2 % [facility] Comment: Interpretive Data Percent cell count reference ranges are not reported, since discordance with absolute values may lead to misinterpretation of CBC data. Current Interpretive Data was last revised on 2018. Basophil pct 1.1 % [facility] Comment: Interpretive Data Percent cell count reference ranges are not reported, since discordance with absolute values may lead to misinterpretation of CBC data. Current Interpretive Data was last revised on 2018. Blood 08/08/2025 7:51 AM CDT 08/08/2025 8:01 AM CDT us Anusha Lee MD LAB BLOOD OR DERABLES Final Result [facility] Department [place] [address] * (ABNORMAL) CBC with auto differential (08/08/2025 7:51 AM CDT) WBC 3.68(L) 3.80 - 9.90 K/cumm Hgb 8.8(L) 11.9 - 15.5 g/dL [facility] Hct 27.8(L) 35.6 - 45.5 % [facility] Plt 173 150 - 400 K/cumm [facility] MPV 9.5 9.1 - 12.3 fL [facility] RBC 2.89(L) 3.90 - 5.20 M/cumm [facility] MCV 96.2 81.3 - 96.4 fL [facility] MCH 30.4 27.1 - 33.3 pg [facility] MCHC 31.7(L) 32.3 - 35.7 g/dL [facility] RDW CV 17.2(H) 11.1 - 14.9 % [facility] RDW SD 60.9(H) 35.7 - 48.1 fL [facility] NRBC abs 0.00 0.00 - 0.01 K/cumm [facility] Blood 08/08/2025 7:51 AM CDT 08/08/2025 8:01 AM CDT us Anusha Lee MD LAB BLOOD OR DERABLES Final Result [facility] Department [place] [address] * (ABNORMAL) Renal function panel (08/08/2025 7:51 AM CDT) Sodium 139 135 - 145 mmol/L Potassium, pl 3.9 3.3 - 4.9 mmol/L [facility] Comment:Hemolyzed; Potassium value may be falsely elevated by as much as 0.3-0.5 mmol/L. Suggest redraw and reanalysis. Chloride 111(H) 97 - 110 mmol/L [facility] CO2 19(L) 22 - 32 mmol/L [facility] Anion gap 9 2 - 15 mmol/L [facility] BUN 52(H) 6 - 25 mg/dL [facility] Creatinine 1.45(H) 0.60 - 1.10 mg/dL [facility] Glucose 103 70 - 199 mg/dL [facility] Comment: Interpretive Data Fasting glucose >/= 126 mg/dl is diagnostic for diabetes. Fasting is defined as no caloric intake for at least 8 hours. Fasting glucose between 100 mg/dl to 125 mg/dl is diagnostic of prediabetes. In a patient with classic symptoms of hyperglycemia or hyperglycemic crisis, a random glucose >/= 200 mg/dl is diagnostic for diabetes. In the absence of unequivocal hyperglycemia, results should be confirmed by repeat testing. The classification and Diagnosis of Diabetes Diabetes Care 2021; 46: S19-S40. Current interpretive data was last revised 2022. Calcium 8.0(L) 8.5 - 10.3 mg/dL [facility] Phosphorus, pl 2.6 2.3 - 4.5 mg/dL [facility] Albumin 2.8(L) 3.5 - 5.0 g/dL [facility] Blood 08/08/2025 7:51 AM CDT 08/08/2025 8:01 AM CDT Anusha Lee MD LAB BLOOD OR DERABLES Final Result Performing Organization Address [facility] Co de Phone Number [facility] [place] [address] * Troponin I high-sensitivity 6-hour (08/07/2025 6:12 PM CDT) Trop I hs 13 <=17 ng/L Comment: Interpretive Data For further hscTnI resources including the diagnostic algorithm and an aid in interpretation, copy and paste this link: https://bjhlab.testcatalog.org/show/[email or web address] Current Interpretive Data last revised 2020. Trop I hs delta 1 ng/L [facility] Trop I hs interp Insignificant [facility] Blood 08/07/2025 6:12 PM CDT 08/07/2025 6:44 PM CDT Javon Barton MD LAB BLOOD ORDERABLES Final Result Performing Organization Address [facility] Co de Phone Number [facility] Department [place] [address] * US Kidney Complete (08/07/2025 4:24 PM CDT) Anatomical Region Laterality Modality Kidney N/A Ultrasound 08/07/2025 4:30 PM CDT Impressions 08/07/2025 4:30 PM CDT Hydronephrosis on the right despite the indwelling stent. Bilateral renal calculi. Electronically signed by: Richelle Cummings M.D. Narrative 08/07/2025 4:30 PM CDT EXAMINATION: COMPLETE RENAL SONOGRAM HISTORY: Renal failure and kidney stones COMPARISON: CT dated 06/05/2025 FINDINGS: Kidneys: The echogenicity of both kidneys is normal. The right kidney is slightly small in size. The right kidney measures 10 cm in length, and the left, 11.5 cm in length. There is hydronephrosis in the right kidney similar in appearance to the CT scan.. There is also an indwelling ureteral stent. A large stone is seen in the right renal pelvis and a tiny stone is seen in the right kidney lower pole. In the left kidney lower pole is a conglomeration of stones measuring about 1.5 cm in diameter, these are nonobstructing. Bladder: The urinary bladder is normal Procedure Note Richelle Cummings MD - 08/07/2025 EXAMINATION: COMPLETE RENAL SONOGRAM HISTORY: Renal failure and kidney stones COMPARISON: CT dated 06/05/2025 FINDINGS: Kidneys: The echogenicity of both kidneys is normal. The right kidney is slightly small in size. The right kidney measures 10 cm in length, and the left, 11.5 cm in length. There is hydronephrosis in the right kidney similar in appearance to the CT scan.. There is also an indwelling ureteral stent. A large stone is seen in the right renal pelvis and a tiny stone is seen in the right kidney lower pole. In the left kidney lower pole is a conglomeration of stones measuring about 1.5 cm in diameter, these are nonobstructing. Bladder: The urinary bladder is normal IMPRESSION: Hydronephrosis on the right despite the indwelling stent. Bilateral renal calculi. Electronically signed by: Richelle Cummings M.D. us Anusha Lee MD [facility] [place] RHIANNA CRAWFORD Final Result * Troponin I high-sensitivity 4-hour (08/07/2025 3:46 PM CDT) Trop I hs 10 <=17 ng/L Comment: Interpretive Data For further hscTnI resources including the diagnostic algorithm and an aid in interpretation, copy and paste this link: [email or web address].org/show/[email or web address] Current Interpretive Data last revised 2020. Trop I hs delta -2 ng/L [facility] Trop I hs interp Insignificant [facility] Blood 08/07/2025 3:46 PM CDT 08/07/2025 4:10 PM CDT us Javon Barton MD LAB BLOOD ORDERABLES Final Result Performing Organization Address City/[facility]/ZIP Co de Phone Number [facility] Department [place] [address] * (ABNORMAL) eGFR (08/07/2025 3:46 PM CDT) eGFR 23(L) >=60 mL/min/1. 73 m2 Comment: Interpretive Data Reference Interval Normal >/= 90 mL/min/1.73m2 Mildly decreased* 60 - 89 mL/min/1.73m2 Mildly to moderately decreased 45 - 59 mL/min/1.73m2 Moderately to severely decreased 30 - 44 mL/min/1.73m2 Severely decreased 15 - 29 mL/min/1.73m2 Kidney Failure < 15 mL/min/1.73m2 *Relative to young adult level Estimated glomerular filtration rate is determined by the 2020 CKD-EPI equation recommended by the National Kidney Foundation (A Unifying Approach to GFR Estimation: Recommendations of the NKF-ASK Task Force on Reassessing the Inclusion of Race in Diagnosing Kidney Disease, JASN 2020). The CKD-EPI equation should not be used for patients with unstable renal function and has not been validated in children and those over 70. Current interpretive data was last reviewed 2021. Blood 08/07/2025 3:46 PM CDT 08/07/2025 4:10 PM CDT us Anusha Lee MD LAB BLOOD OR DERABLES Final Result Performing Organization Address City/[facility]/ZIP Co de Phone Number [facility] Department [place] [address] * (ABNORMAL) Urinalysis reflex to microscopic and culture Urine (08/07/2025 3:46 PM CDT) Color, ur Yellow Yellow Clarity, ur Turbid(A) Clear [facility] Specific gravity, ur 1.022 1.003 - 1.030 [facility] pH, urine 6.0 [facility] Comment: Interpretive Data U rine pH is affected by diet, medications, systemic acid-base disturbances, and renal tubular function. pH may affect urinary stone formation. For example, urine pH below 6.0 may help reduce the tendency for calcium phosphate stones and pH greater than 6.0 may reduce the tendency for uric acid stone formation. Source: [facility] Current Interpretive Data was last revised on 2017 Protein, ur ql 2+(A) Negative [facility] Glucose, ur ql Negative Negative [facility] Ketones, ur Negative Negative [facility] Bilirubin, ur Negative Negative [facility] Blood, ur 3+(A) Negative [facility] Urobilinogen, ur <2.0 <2.0 mg/dL [facility] Nitrite, ur Negative Negative [facility] Leukocyte esterase, ur 3+(A) Negative [facility] UA reflex comment Reflex to microscopic UA will be performed. [facility] Urine 08/07/2025 3:46 PM CDT 08/07/2025 4:07 PM CDT Javon Barton MD LAB MICROBIOLOGY - GENERAL ORDERABLES Final Result [facility] Department [place] [address] * Sodium, urine, random (08/07/2025 3:46 PM CDT) Sodium, ur 48 mmol/L Comment: Interpretive Data No reference range established. Current interpretive data was last revised 2019. Urine 08/07/2025 3:46 PM CDT 08/07/2025 4:14 PM CDT Anusha Lee MD LAB URINE OR DERABLES Final Result Performing Organization Address [facility] Co de Phone Number [facility] [place] [address] * Creatinine, urine, random (08/07/2025 3:46 PM CDT) Creatinine Ur 85.5 mg/dL Comment: Interpretive Data No reference range established. Current interpretive data was last revised 2019. Urine 08/07/2025 3:46 PM CDT 08/07/2025 4:14 PM CDT Anusha Lee MD LAB URINE OR DERABLES Final Result Performing Organization Address [facility] Co de Phone Number [facility] [place] [address] * (ABNORMAL) Urinalysis, microscopic only (08/07/2025 3:46 PM CDT) WBC, ur >50(A) 0 - 5 /HPF RBC, ur >50(A) 0 - 2 /HPF [facility] Epithelial cells, squamous, ur 1-5 0 - 5 /HPF [facility] Bacteria, ur Trace(A) [facility] Mucous, ur Present(A) [facility] Hyaline casts, ur 6-10 0 - 10 /LPF [facility] Culture Reflex Comment Reflex to urine culture will be performed. [facility] Urine 08/07/2025 3:46 PM CDT 08/07/2025 4:07 PM CDT Javon Barton MD LAB URINE ORDERABLES Final Result Performing Organization Address [facility] Co de Phone Number [facility] [place] [address] * Urine culture Urine (08/07/2025 3:46 PM CDT) Report Final Report: Less than 100,000 colonies/mL (clinically insignificant growth based on current clinical standards) Organism (CLINICALLY INSIGNIFICANT GROWTH [facility] Urine 08/07/2025 3:46 PM CDT 08/07/2025 7:32 PM CDT Narrative [facility] - 08/09/2025 7:55 AM CDT Urine culture reflexed based upon urinalysis results. Testing performed by [facility] ([phone]) us Javon Barton MD LAB MICROBIOLOGY - GENERAL ORDERABLES Final Result Performing Organization Address [facility] Co de Phone Number [facility] Department [place] [address] * (ABNORMAL) Blood gas, venous (08/07/2025 3:46 PM CDT) Pathologist [facility] [place] pH, Venous 7.26(L) 7.32 - 7.43 PCO2, Venous 35(L) 40 - 50 mmHg [facility] PO2, Venous 27 mmHg [facility] Comment: Interpretive Data No Reference Range Established Current Interpretive Data was last revised on 2018. HCO3 Venous, Calculated 15(L) 20 - 30 mmol/L [facility] BE, venous -10 mmol/L [facility] Comment: Interpretive Data No Reference Range Established Current Interpretive Data was last revised on 2018. Blood 08/07/2025 3:46 PM CDT 08/07/2025 3:55 PM CDT us Anusha Lee MD LAB BLOOD OR DERABLES Final Result Performing Organization Address [facility] Co de Phone Number [facility] Department [place] [address] * (ABNORMAL) Renal function panel (08/07/2025 3:46 PM CDT) Sodium 134(L) 135 - 145 mmol/L Potassium, pl 3.8 3.3 - 4.9 mmol/L [facility] Chloride 104 97 - 110 mmol/L [facility] CO2 18(L) 22 - 32 mmol/L [facility] Anion gap 12 2 - 15 mmol/L [facility] BUN 68(H) 6 - 25 mg/dL [facility] Creatinine 2.28(H) 0.60 - 1.10 mg/dL [facility] Glucose 84 70 - 199 mg/dL [facility] Comment: Interpretive Data Fasting glucose >/= 126 mg/dl is diagnostic for diabetes. Fasting is defined as no caloric intake for at least 8 hours. Fasting glucose between 100 mg/dl to 125 mg/dl is diagnostic of prediabetes. In a patient with classic symptoms of hyperglycemia or hyperglycemic crisis, a random glucose >/= 200 mg/dl is diagnostic for diabetes. In the absence of unequivocal hyperglycemia, results should be confirmed by repeat testing. The classification and Diagnosis of Diabetes Diabetes Care 2021; 46: S19-S40. Current interpretive data was last revised 2022. Calcium 9.4 8.5 - 10.3 mg/dL [facility] Phosphorus, pl 3.8 2.3 - 4.5 mg/dL [facility] Albumin 3.6 3.5 - 5.0 g/dL [facility] Blood 08/07/2025 3:46 PM CDT 08/07/2025 4:10 PM CDT Anusha Lee MD LAB BLOOD OR DERABLES Final Result Performing Organization Address City/State/[facility] Co de Phone Number [facility] Department [place] [address] * NM CRITICAL CARE ILL/INJURED PATIENT INIT 30-74 MIN (08/07/2025 1:18 PM CDT) Narrative Javon Barton MD - 08/07/2025 1:18 PM CDT Javon Barton MD 08/07/2025 1:18 PM Critical Care Performed by: Javon Barton MD Authorized by: Javon Barton MD Critical care provider statement: As reflected in the history, physical exam, orders, notes, and/or MDM, I was personally present while the patient was critically ill and provided critical care services for 35 minutes, excluding time involved in separately billable procedures. Critical care was necessary to treat or prevent imminent or life-threatening deterioration of the following condition(s): unstable vital signs severe metabolic condition and acute renal failure Critical care was time spent by me providing the following: continuous telemetry, continuous pulse oximetry, interpretation of bedside monitors, imaging, and arterial/venous lab draws, serial bedside patient exams, resuscitation with fluids and serial laboratory checks I provided emergent necessary critical care medicine services to this patient. I ordered and reviewed test results and/or imaging studies. I spent time discussing the management of this critically ill patient with consultants and the medical staff. I spent time discussing the management and therapeutic options for this critically ill patient with the patient themselves or with the appropriate designated surrogate decision-maker. I spent time documenting in the medical record. us Javon Barton MD IN CLINIC/BEDSIDE ORDERABL ES Final Result * XR Chest 1 Vw Portable (08/07/2025 12:22 PM CDT) Anatomical Region Laterality Modality Body, Chest N/A Computed Radiogr aphy 08/07/2025 12:2 8 PM CDT Impressions 08/07/2025 12:28 PM CDT Comparison 06/10/2025. Left lower lobe granuloma. Patchy right mid and lower lung opacities likely reflect atelectasis. No pneumothorax or pleural effusion. No evidence of pulmonary edema. Cardiomediastinal silhouette normal. Electronically signed by: Yen Collins M.D. Narrative 08/07/2025 12:28 PM CDT EXAMINATION: 1 view chest radiograph Procedure Note Yen Collins MD - 08/07/2025 EXAMINATION: 1 view chest radiograph IMPRESSION: Comparison 06/10/2025. Left lower lobe granuloma. Patchy right mid and lower lung opacities likely reflect atelectasis. No pneumothorax or pleural effusion. No evidence of pulmonary edema. Cardiomediastinal silhouette normal. Electronically signed by: Yen Collins M.D. us Javon Barton MD IMG XR PROCEDURES Final Re sult * ECG 12-LEAD (08/07/2025 11:59 AM CDT) Narrative [facility] - 08/07/2025 11:59 AM CDT Javon Barton MD 08/07/2025 12:00 PM ECG 12 lead Date/Time: 08/07/2025 11:59 AM Performed by: Javon Barton MD Authorized by: Javon Barton MD Rate: ECG rate: 62 ECG rate assessment: normal Rhythm: Rhythm: sinus rhythm Ectopy: Ectopy: none QRS: QRS axis: Normal QRS intervals: Normal Conduction: Conduction: normal ST segments: ST segments: Normal T waves: T waves: non-specific Previous ECG: Previous ECG: Compared to current Date of previous EC06/06/2025 Similarity: No change Interpretation: Interpretation: No significant change Recommended Follow-up: Recommended follow up: further workup in the ED Procedure Note Javon Barton MD - 08/07/2025 11:59 AM CDT Procedure ECG 12 lead Date/Time: 08/07/2025 11:59 AM Performed by: Javon Barton MD Authorized by: Javon Barton MD Rate: ECG rate: 62 ECG rate assessment: normal Rhythm: Rhythm: sinus rhythm Ectopy: Ectopy: none QRS: QRS axis: Normal QRS intervals: Normal Conduction: Conduction: normal ST segments: ST segments: Normal T waves: T waves: non-specific Previous ECG: Previous ECG: Compared to current Date of previous EC06/06/2025 Similarity: No change Interpretation: Interpretation: No significant change Recommended Follow-up: Recommended follow up: further workup in the ED Javon Barton MD 08/07/251199 us Javon Barton MD ECG ORDERABLES Final Resu lt [facility] * Troponin I high-sensitivity series (baseline, 2hr, 4hr, 6hr) (08/07/2025 11:40 AM CDT) Pathologist [facility] [place] Trop I hs 12 <=17 ng/L Comment: Interpretive Data For further hscTnI resources including the diagnostic algorithm and an aid in interpretation, copy and paste this link: [email or web address].org/show/[email or web address] Current Interpretive Data last revised 2020. Blood 08/07/2025 11:4 0 AM CDT 08/07/2025 12:22 PM CDT Javon Barton MD LAB BLOOD ORDERABLES Final Result [facility] Department [place] [address] * Sepsis Lactate w/ Reflex (08/07/2025 11:40 AM CDT) [facility] Sepsis Lactate 1.3 0.7 - 2.0 mmol/L Blood 08/07/2025 11:4 0 AM CDT 08/07/2025 12:21 PM CDT Javon Barton MD LAB BLOOD ORDERABLES Final Result [facility] Department [place] [address] * (ABNORMAL) eGFR (08/07/2025 11:40 AM CDT) [facility] eGFR 18(L) >=60 mL/min/1. 73 m2 Comment: Interpretive Data Reference Interval Normal >/= 90 mL/min/1.73m2 Mildly decreased* 60 - 89 mL/min/1.73m2 Mildly to moderately decreased 45 - 59 mL/min/1.73m2 Moderately to severely decreased 30 - 44 mL/min/1.73m2 Severely decreased 15 - 29 mL/min/1.73m2 Kidney Failure < 15 mL/min/1.73m2 *Relative to young adult level Estimated glomerular filtration rate is determined by the 2021 CKD-EPI equation recommended by the National Kidney Foundation (A Unifying Approach to GFR Estimation: Recommendations of the NKF-ASK Task Force on Reassessing the Inclusion of Race in Diagnosing Kidney Disease, JASN 2020). The CKD-EPI equation should not be used for patients with unstable renal function and has not been validated in children and those over 70. Current interpretive data was last reviewed 2021. Blood 08/07/2025 11:4 0 AM CDT 08/07/2025 12:22 PM CDT us Javon Barton MD LAB BLOOD ORDERABLES Final Result [facility] Department [place] [address] * Differential, auto (08/07/2025 11:40 AM CDT) Neutrophil abs 4.46 1.50 - 6.50 K/cumm Imm gran abs 0.02 0.00 - 0.10 K/cumm [facility] Lymphocyte abs 0.83 0.80 - 3.30 K/cumm [facility] Monocyte abs 0.34 0.20 - 0.80 K/cumm [facility] Eosinophil abs 0.06 0.00 - 0.50 K/cumm [facility] Basophil abs 0.04 0.00 - 0.10 K/cumm [facility] Neutrophil pct 77.7 % [facility] Comment: Interpretive Data Percent cell count reference ranges are not reported, since discordance with absolute values may lead to misinterpretation of CBC data. Current Interpretive Data was last revised on 2018. Imm gran pct 0.3 % [facility] Comment: Interpretive Data Percent cell count reference ranges are not reported, since discordance with absolute values may lead to misinterpretation of CBC data. Current Interpretive Data was last revised on 2018. Lymphocyte pct 14.4 % [facility] Comment: Interpretive Data Percent cell count reference ranges are not reported, since discordance with absolute values may lead to misinterpretation of CBC data. Current Interpretive Data was last revised on 2018. Monocyte pct 5.9 % [facility] Comment: Interpretive Data Percent cell count reference ranges are not reported, since discordance with absolute values may lead to misinterpretation of CBC data. Current Interpretive Data was last revised on 2018. Eosinophil pct 1.0 % [facility] Comment: Interpretive Data Percent cell count reference ranges are not reported, since discordance with absolute values may lead to misinterpretation of CBC data. Current Interpretive Data was last revised on 2018. Basophil pct 0.7 % [facility] Comment: Interpretive Data Percent cell count reference ranges are not reported, since discordance with absolute values may lead to misinterpretation of CBC data. Current Interpretive Data was last revised on 2018. Blood 08/07/2025 11:4 0 AM CDT 08/07/2025 12:22 PM CDT Javon Barton MD LAB BLOOD ORDERABLES Final Result [facility] Department [place] [address] * (ABNORMAL) CBC with auto differential (08/07/2025 11:40 AM CDT) WBC 5.75 3.80 - 9.90 K/cumm Hgb 11.5(L) 11.9 - 15.5 g/dL [facility] Hct 34.8(L) 35.6 - 45.5 % [facility] Plt 243 150 - 400 K/cumm [facility] MPV 9.4 9.1 - 12.3 fL [facility] RBC 3.75(L) 3.90 - 5.20 M/cumm [facility] MCV 92.8 81.3 - 96.4 fL [facility] MCH 30.7 27.1 - 33.3 pg [facility] MCHC 33.0 32.3 - 35.7 g/dL [facility] RDW CV 17.4(H) 11.1 - 14.9 % [facility] RDW SD 59.3(H) 35.7 - 48.1 fL [facility] NRBC abs 0.00 0.00 - 0.01 K/cumm [facility] Blood 08/07/2025 11:4 0 AM CDT 08/07/2025 12:22 PM CDT Javon Barton MD LAB BLOOD ORDERABLES Final Result [facility] Department [place] [address] * Blood culture Blood Peripheral (08/07/2025 11:40 AM CDT) Report Final Report: No growth Blood (Peripheral) 08/07/2025 11:40 AM CDT 08/07/2025 12:22 PM CDT Narrative [facility] - 08/11/2025 4:00 PM CDT From a different site than #1. Draw Blood cultures before administration of Antibiotics Collection->Peripheral 1. Blood cultures are incubated for 4 days on a continuously monitored blood culture system. The first report of a negative culture is issued within 24 hours of receipt of the specimen in the laboratory. 2. Positive culture results are reported as soon as they are detected. 3. The most important factor for detection of microbes in the setting of bloodstream infection is the volume of blood submitted for culture. Failure to collect an optimal blood volume can result in false negative blood cultures. 4. For pediatric patients, the recommended blood volume to collect follows a weight based strategy. See the electronic test catalog for collection instructions. 5. For positive blood cultures, a rapid molecular test may be performed for organism identification using the farhan ePlex blood culture identification panel for gram positive (BCID-GP) and gram negative (BCID-GN) organisms. This nucleic acid amplification test detects microbial DNA in positive blood culture broth. This assay has been cleared by the [place] Food and Drug Administration and its performance characteristics have been verified by the [facility]. For questions about this culture, contact the Microbiology Laboratory at [phone]. Interpretive data was last revised on 24. Javon Barton MD LAB MICROBIOLOGY - GENERAL ORDERABLES Final Result Performing Organization Address City/[facility]/ZIP Co de Phone Number [facility] Department [place] [address] * Blood culture Blood Peripheral (08/07/2025 11:40 AM CDT) Report Final Report: No growth Blood (Peripheral) 08/07/2025 11:40 AM CDT 08/07/2025 12:22 PM CDT Narrative [facility]IN[facility] - 08/11/2025 4:00 PM CDT Draw Blood cultures before administration of Antibiotics Collection->Peripheral 1. Blood cultures are incubated for 4 days on a continuously monitored blood culture system. The first report of a negative culture is issued within 24 hours of receipt of the specimen in the laboratory. 2. Positive culture results are reported as soon as they are detected. 3. The most important factor for detection of microbes in the setting of bloodstream infection is the volume of blood submitted for culture. Failure to collect an optimal blood volume can result in false negative blood cultures. 4. For pediatric patients, the recommended blood volume to collect follows a weight based strategy. See the electronic test catalog for collection instructions. 5. For positive blood cultures, a rapid molecular test may be performed for organism identification using the [employer] ePlex blood culture identification panel for gram positive (BCID-GP) and gram negative (BCID-GN) organisms. This nucleic acid amplification test detects microbial DNA in positive blood culture broth. This assay has been cleared by the [place] Food and Drug Administration and its performance characteristics have been verified by the [facility]. For questions about this culture, contact the Microbiology Laboratory at [phone]. Interpretive data was last revised on 24. Javon Barton MD LAB MICROBIOLOGY - GENERAL ORDERABLES Final Result [facility] Department [place] [address] * (ABNORMAL) Comprehensive metabolic panel (08/07/2025 11:40 AM CDT) Sodium 134(L) 135 - 145 mmol/L Potassium, pl 4.4 3.3 - 4.9 mmol/L [facility] Chloride 104 97 - 110 mmol/L [facility] CO2 16(L) 22 - 32 mmol/L [facility] Anion gap 14 2 - 15 mmol/L [facility] BUN 75(H) 6 - 25 mg/dL [facility] Creatinine 2.75(H) 0.60 - 1.10 mg/dL [facility] Glucose 92 70 - 199 mg/dL [facility] Comment: Interpretive Data Fasting glucose >/= 126 mg/dl is diagnostic for diabetes. Fasting is defined as no caloric intake for at least 8 hours. Fasting glucose between 100 mg/dl to 125 mg/dl is diagnostic of prediabetes. In a patient with classic symptoms of hyperglycemia or hyperglycemic crisis, a random glucose >/= 200 mg/dl is diagnostic for diabetes. In the absence of unequivocal hyperglycemia, results should be confirmed by repeat testing. The classification and Diagnosis of Diabetes Diabetes Care 202; 46: S19-S40. Current interpretive data was last revised 2022. Calcium 9.3 8.5 - 10.3 mg/dL [facility] Bilirubin, total 0.3 0.1 - 1.2 mg/dL [facility] Protein, pl 7.2 6.5 - 8.5 g/dL [facility] Albumin 3.9 3.5 - 5.0 g/dL [facility] Alk phos 114 40 - 130 Units/L [facility] ALT 16 7 - 45 Units/L [facility] AST 21 10 - 45 Units/L [facility] Blood 08/07/2025 11:4 0 AM CDT 08/07/2025 12:22 PM CDT us Javon Barton MD LAB BLOOD ORDERABLES Final Result [facility] [place] [address] * (ABNORMAL) eGFR (08/07/2025 9:27 AM CDT) eGFR 18(L) >=60 mL/min/1. 73 m2 Comment: Interpretive Data Reference Interval Normal >/= 90 mL/min/1.73m2 Mildly decreased* 60 - 89 mL/min/1.73m2 Mildly to moderately decreased 45 - 59 mL/min/1.73m2 Moderately to severely decreased 30 - 44 mL/min/1.73m2 Severely decreased 15 - 29 mL/min/1.73m2 Kidney Failure < 15 mL/min/1.73m2 *Relative to young adult level Estimated glomerular filtration rate is determined by the 2020 CKD-EPI equation recommended by the National Kidney Foundation (A Unifying Approach to GFR Estimation: Recommendations of the NKF-ASK Task Force on Reassessing the Inclusion of Race in Diagnosing Kidney Disease, JASN 2020). The CKD-EPI equation should not be used for patients with unstable renal function and has not been validated in children and those over 70. Current interpretive data was last reviewed 2021. Blood 08/07/2025 9:27 AM CDT 08/07/2025 9:46 AM CDT us Bharathi Moser NP LAB BLOOD ORDERABLES Fin al Result [facility] Department [place] [address] * Differential, auto (08/07/2025 9:27 AM CDT) Neutrophil abs 5.97 1.50 - 6.50 K/cumm Imm gran abs 0.05 0.00 - 0.10 K/cumm [facility] Lymphocyte abs 0.88 0.80 - 3.30 K/cumm [facility] Monocyte abs 0.48 0.20 - 0.80 K/cumm [facility] Eosinophil abs 0.13 0.00 - 0.50 K/cumm [facility] Basophil abs 0.09 0.00 - 0.10 K/cumm [facility] Neutrophil pct 78.5 % [facility] Comment: Interpretive Data Percent cell count reference ranges are not reported, since discordance with absolute values may lead to misinterpretation of CBC data. Current Interpretive Data was last revised on 2018. Imm gran pct 0.7 % [facility] Comment: Interpretive Data Percent cell count reference ranges are not reported, since discordance with absolute values may lead to misinterpretation of CBC data. Current Interpretive Data was last revised on 2018. Lymphocyte pct 11.6 % [facility] Comment: Interpretive Data Percent cell count reference ranges are not reported, since discordance with absolute values may lead to misinterpretation of CBC data. Current Interpretive Data was last revised on 2018. Monocyte pct 6.3 % [facility] Comment: Interpretive Data Percent cell count reference ranges are not reported, since discordance with absolute values may lead to misinterpretation of CBC data. Current Interpretive Data was last revised on 2018. Eosinophil pct 1.7 % [facility] Comment: Interpretive Data Percent cell count reference ranges are not reported, since discordance with absolute values may lead to misinterpretation of CBC data. Current Interpretive Data was last revised on 2018. Basophil pct 1.2 % [facility] Comment: Interpretive Data Percent cell count reference ranges are not reported, since discordance with absolute values may lead to misinterpretation of CBC data. Current Interpretive Data was last revised on 2018. Blood 08/07/2025 9:27 AM CDT 08/07/2025 9:41 AM CDT us Bharathi Moser NP LAB BLOOD ORDERABLES Fin al Result [facility] [place] [address] * (ABNORMAL) CBC with auto differential (08/07/2025 9:27 AM CDT) WBC 7.60 3.80 - 9.90 K/cumm Hgb 12.2 11.9 - 15.5 g/dL [facility] Hct 38.1 35.6 - 45.5 % [facility] Plt 289 150 - 400 K/cumm [facility] MPV 9.5 9.1 - 12.3 fL [facility] RBC 4.06 3.90 - 5.20 M/cumm [facility] MCV 93.8 81.3 - 96.4 fL [facility] MCH 30.0 27.1 - 33.3 pg [facility] MCHC 32.0(L) 32.3 - 35.7 g/dL [facility] RDW CV 17.2(H) 11.1 - 14.9 % [facility] RDW SD 60.1(H) 35.7 - 48.1 fL [facility] NRBC abs 0.00 0.00 - 0.01 K/cumm [facility] Blood 08/07/2025 9:27 AM CDT 08/07/2025 9:41 AM CDT us Bharathi Moser NP LAB BLOOD ORDERABLES Fin al Result [facility] Department [place] [address] * (ABNORMAL) Comprehensive metabolic panel (08/07/2025 9:27 AM CDT) Sodium 135 135 - 145 mmol/L Potassium, pl 4.0 3.3 - 4.9 mmol/L [facility] Chloride 103 97 - 110 mmol/L [facility] CO2 17(L) 22 - 32 mmol/L [facility] Anion gap 15 2 - 15 mmol/L [facility] BUN 76(H) 6 - 25 mg/dL [facility] Creatinine 2.79(H) 0.60 - 1.10 mg/dL [facility] Glucose 104 70 - 199 mg/dL [facility] Comment: Interpretive Data Fasting glucose >/= 126 mg/dl is diagnostic for diabetes. Fasting is defined as no caloric intake for at least 8 hours. Fasting glucose between 100 mg/dl to 125 mg/dl is diagnostic of prediabetes. In a patient with classic symptoms of hyperglycemia or hyperglycemic crisis, a random glucose >/= 200 mg/dl is diagnostic for diabetes. In the absence of unequivocal hyperglycemia, results should be confirmed by repeat testing. The classification and Diagnosis of Diabetes Diabetes Care 202; 46: S19-S40. Current interpretive data was last revised 2022. Calcium 9.4 8.5 - 10.3 mg/dL [facility] Bilirubin, total 0.3 0.1 - 1.2 mg/dL [facility] Protein, pl 7.7 6.5 - 8.5 g/dL [facility] Albumin 4.1 3.5 - 5.0 g/dL [facility] Alk phos 123 40 - 130 Units/L [facility] ALT 16 7 - 45 Units/L [facility] AST 23 10 - 45 Units/L [facility] Blood 08/07/2025 9:27 AM CDT 08/07/2025 9:41 AM CDT Bharathi Moser NP LAB BLOOD ORDERABLES Fin al Result Performing Organization Address City/[facility]/ZIP Co de Phone Number [facility] Department [place] [address] * ECG 12 lead (08/07/2025 9:01 AM CDT) Bharathi Moser ACADEMIC SUPPORT COORDINATOR ECG ORDERABLES Final Re sult * FL Fluoroscopy < 1 Hour (07/27/2025 8:39 AM CDT) Narrative [facility] - 07/27/2025 8:40 AM CDT The images from this study are not interpreted by Radiology. Please refer to the physician's procedure / OR operative note. Genaro Mccurdy MD IMG FLUOROSCOPY PROCEDUR ES Final Result [facility] * NM AN ELECTIVE SUPRAGLOTTIC AIRWAY, NM AN PROCEDURE PLACEHOLDER (07/27/2025 8:16 AM CDT) Narrative Vannesa Mcpherson, TURF KEEPER - 07/27/2025 8:16 AM CDT Vannesa Mcpherson, TURF KEEPER 07/27/2025 8:17 AM Airway Patient location: OR Urgency: elective Date/time: 07/27/2025 7:28 AM Indications for airway management: anesthesia Difficult airway: no Staff: Placed by: TURF KEEPER: Vannesa Mcpherson CRNA Emergent airway documentation: Risks and benefits discussed: yes Consent obtained: yes Consent given by: patient Airway prep: Preoxygenated: yes Patient position: sniffing Mask difficulty assessment: 0 - not attempted Spontaneous ventilation during airway: absent Sedation level during airway: GA Final airway details: Final airway type: supraglottic airway Final supraglottic airway: IGel SGA size: 4 Number of attempts: 1 Ventilation between attempts: none Additional comments: Atraumatic x 1. +B BS/+ETCO2. Mouth and dentition unchanged. Secured midline in tube tree. us Sandro Prado MD ANESTHESIA ORDERABLES Fi nal Result * (ABNORMAL) Mycology (fungal) culture Stone Kidney, right (07/27/2025 8:09 AM CDT) Report Final Report: Heavy growth of: Carole albicans Susceptibilit y not performed on this isolate (.) Comment:Testing performed by : [facility], [address] [place] [address]., [id number] Organism CAROLE ALBICANS [facility] Stone (Kidney, right) 07/27/2025 8:09 AM CDT 07/27/2025 10:26 AM CDT Narrative [facility] - 08/28/2025 9:56 AM CDT Mycology cultures are held for 4 weeks. us Genaro Mccurdy MD LAB MICROBIOLOGY - [facility] ORDERABLES Final Result [facility] [id number] [facility]. Department [place] [address] * (ABNORMAL) Aerobic and anaerobic culture and gram stain Aspirate Kidney, right (07/27/2025 8:09 AM CDT) Direct Specimen Exam Stain: Rare polymorphonuclear leukocytes seen. Few Yeast Moderate Gram Negative Bacilli Comment:Testing performed by : [facility], [address] [place] [address]., [id number] Report Final Report: Moderate growth of: Carole albicans Susceptibility not performed on this isolate (.) [facility] Comment:Testing performed by : [facility], [facility], [place]., [address] Organism CAROLE ALBICANS SAM [place] Aspirate (Kidney, right) 07/27/2025 8:09 AM CDT 07/27/2025 10:26 AM CDT Narrative [facility] - 07/31/2025 8:16 AM CDT Right kidney stone us Genaro Mccurdy MD LAB MICROBIOLOGY - GENER AL ORDERABLES Final Result Performing Organization Address City/[facility]/ZIP Co de Phone Number [facility] [address] [facility] Department of Laboratories [place], [place] [id number] * (ABNORMAL) Pro B-type natriuretic peptide (07/17/2025 10:41 AM CDT) Pathologist [facility] proBNP 603(H) 0 - 301 pg/mL [facility] - Comment: The following cut-points have been suggested for the use of proBNP for the diagnostic evaluation of heart failure (HF) in patients with acute dyspnea: Modality Age Optimal Cut (years) Point Diagnosis (rule in HF) <50 450 pg/mL 50 - 75 900 pg/mL >75 1800 pg/mL Exclusion (rule out HF) Age independent 300 pg/mL Blood 07/17/2025 10:4 1 AM CDT 07/17/2025 Narrative [facility] - 07/18/2025 4:07 AM CDT Performed at: [facility] [id number] Radiology Tech: Dago Mckinley PhD, Phone: [phone] us Gabe Muñoz MD LAB BLOOD ORDERABLES Final Re sult [facility] - 01 * (ABNORMAL) CBC with auto differential (07/17/2025 10:41 AM CDT) WBC 5.8 3.4 - 10.8 x10E3/uL [facility] - 01 RBC 3.55(L) 3.77 - 5.28 x10E6/uL [facility] - 01 Hgb 10.8(L) 11.1 - 15.9 g/dL [facility] - 01 Hct 34.1 34.0 - 46.6 % [facility] - 01 MCV 96 79 - 97 fL [facility] - 01 MCH 30.4 26.6 - 33.0 pg [facility] - 01 MCHC 31.7 31.5 - 35.7 g/dL [facility] - 01 Rdw 16.1(H) 11.7 - 15.4 % [facility] - 01 Platelets 330 150 - 450 x10E3/uL [facility] - 01 Neutrophils pct 70 Not Estab. % [facility] - 01 Lymphs pct 19 Not Estab. % [facility] - 01 Monocytes pct 9 Not Estab. % [facility] - 01 Eosinophils pct 1 Not Estab. % [facility] - 01 Basophil pct 1 Not Estab. % [facility] - 01 Neutrophil abs 4.1 1.4 - 7.0 x10E3/uL [facility] - 01 Lymphs (Absolute) 1.1 0.7 - 3.1 x10E3/uL [facility] - 01 Monocyte abs 0.5 0.1 - 0.9 x10E3/uL [facility] - 01 Eosinophils, abs 0.1 0.0 - 0.4 x10E3/uL [facility] - 01 Basophils, abs 0.0 0.0 - 0.2 x10E3/uL [facility] - 01 Immature Granulocytes 0 Not Estab. % [facility] - 01 Immature Grans (Abs) 0.0 0.0 - 0.1 x10E3/uL [facility] - 01 Blood 07/17/2025 10:4 1 AM CDT 07/17/2025 Narrative [facility] - 07/17/2025 11:08 PM CDT Performed at: [facility] [address] [id number] Radiology Tech: Dago Mckinley PhD, Phone: [phone] us Gabe Muñoz MD LAB BLOOD ORDERABLES Final Re sult Performing Organization Address [facility]/RUST de Phone Number [facility] * (ABNORMAL) CRP (cardiac risk) (07/17/2025 10:41 AM CDT) Pathologist [facility] C-Reactive Protein, Cardiac 11.45(H) 0.00 - 3.00 mg/L [facility] - 01 Comment: Relative Risk for Future Cardiovascular Event Low <1.00 Average 1.00 - 3.00 High >3.00 Blood 07/17/2025 10:4 1 AM CDT 07/17/2025 Narrative [facility] - 07/18/2025 4:07 AM CDT Performed at: [address] [place] [id number] Radiology Tech: Dago Mckinley PhD, Phone: [phone] us Gabe Muñoz MD LAB BLOOD ORDERABLES Final Re sult Performing Organization Address [facility] de Phone Number [facility] * (ABNORMAL) Basic metabolic panel (07/17/2025 10:41 AM CDT) Pathologist [facility] Glucose 102(H) 70 - 99 mg/dL [facility] - 01 BUN 30(H) 8 - 27 mg/dL [facility] - 01 Creatinine, Serum 1.05(H) 0.57 - 1.00 mg/dL [facility] - 01 eGFR 58(L) >59 mL/min/1.7 3 [facility] - 01 BUN/creat ratio 29(H) 12 - 28 [facility] - 01 Sodium 138 134 - 144 mmol/L [facility] - 01 Potassium, sr 4.2 3.5 - 5.2 mmol/L [facility] - 01 Chloride 105 96 - 106 mmol/L [facility] - 01 CO2 17(L) 20 - 29 mmol/L [facility] - 01 Calcium 9.3 8.7 - 10.3 mg/dL [facility] - 01 Blood 07/17/2025 10:4 1 AM CDT 07/17/2025 Narrative [facility] - 07/18/2025 12:07 AM CDT Performed at: [address] [place] [id number] Radiology Tech: Dago Mckinley PhD, Phone: [phone] us Gabe Muñoz MD LAB BLOOD ORDERABLES Final Re sult Performing Organization Address City/[facility] Co de Phone Number [facility] * (ABNORMAL) Urine culture Urine, clean voided (07/17/2025 10:40 AM CDT) [facility] Urine culture Final report(A) [facility] - Result 1 Klebsiella aerogenes(A) [facility] - Comment:25,000-50,000 colony forming units per mL Result 2 Comment [facility] - Comment: Mixed urogenital bogdan 10,000-25,000 colony forming units per mL Antimicrobial Susceptibility Comment [facility] - Comment: S = Susceptible; I = Intermediate; R = Resistant P = Positive; N = Negative MICS are expressed in micrograms per mL Antibiotic RSLT#1 RSLT#2 RSLT#3 RSLT#4 Amoxicillin/Clavulanic Acid R Cefepime S Cefoxitin R Ceftriaxone R Ciprofloxacin S Ertapenem I Gentamicin S Levofloxacin S Nitrofurantoin R Tetracycline S Tobramycin S Trimethoprim/Sulfa S Urine, clean voided 07/17/2025 10:40 AM CDT 07/17/2025 Comment: Narrative [facility] - 07/20/2025 6:09 PM CDT Performed at: [address] [id number] Radiology Tech: Dago Mckinley PhD, Phone: [phone] us Genaro Mccurdy MD LAB MICROBIOLOGY - GENER AL ORDERABLES Final Result Performing Organization Address City/[facility]/ZIP Co de Phone Number [facility] from Last 3 Months Insurance [facility] Advance Directives For more information, please contact: [phone] * Full Code (Latest Code Status on File) Date Activated Date Inactivated Comments 08/07/2025 1:38 PM 08/10/2025 10:37 PM * Full Code Date Activated Date Inactivated Comments 06/06/2025 2:37 AM 06/13/2025 9:13 PM * Full Code Date Activated Date Inactivated Comments 08/27/2020 3:05 PM 08/28/2020 10:29 PM Care Teams Rn Building Relationship Specialty Start Date End Date Vannesa Bragg MD PCP - General 06/02/12 Genaro Mccurdy MD [address] [place] [address] Consulting Physician Urology 07/27/25
--- OUTSIDE RECORDS SUMMARY | 2025-10-10 01:43 | XMS_ITS | Clinical Summary ---
Author Organization [facility] Address [address] [place] [address] Phone Care Team Providers Care Emergency Medicine Physician Name Role Phone Vannesa Bragg MD Primary Care Provider [phone] Allergies Active Allergy Reactions Criticality Noted Date Comments Penicillins Hives High 05/03/2017 Medications milnacipran (SAVELLA) 50 mg tablet Take 50 mg by mouth 2 times daily. Active losartan (COZAAR) 25 mg tablet Take 25 mg by mouth daily. Active triamterene-hyd roCHLOROthiazid e (MAXZIDE 25) 37.5-25 mg tablet Take 1 Tablet by mouth daily. Active levothyroxine 125 mcg tablet Take 125 mcg by mouth daily senior infrastructure engineer. Active meloxicam (MOBIC) 7.5 mg tablet Take 7.5 mg by mouth 2 times daily. Active cetirizine (ZyrTEC) 10 mg tablet Take 10 mg by mouth daily. Active ALPRAZolam (XANAX) 0.25 mg tablet Take 0.25 mg by mouth 3 times daily. Active Potassium 99 mg Tablet Take by mouth. Activ e fluticasone (FLONASE) 50 mcg/spray [place], Suspension Administer 2 Sprays in each nostril daily. Active albuterol HFA 90 mcg inhaler Take 2 Puffs by inhalation every 6 hours as needed for Shortness of Breath. Active budesonide-form oterol (SYMBICORT) 160-4.5 mcg/actuation HFA Aerosol Inhaler Take 2 Puffs by inhalation 2 times daily. Active omeprazole (PriLOSEC) 40 mg Capsule, Delayed Release(E.C.) Take 40 mg by mouth daily. Active benzonatate (TESSALON) 100 mg capsule Take 100 mg by mouth 3 times daily as needed for Cough. Active oxyCODONE-aceta minophen (PERCOCET) 5-325 mg tablet Take 1 Tablet by mouth every 4 hours as needed for Pain, Moderate. Max Daily Amount: 6 Tablets 24 Tablet 7 Active Active Problems Problem Noted Date Diagnosed Date Kidney stone 05/17/2017 Social History Tobacco Use Types Packs/Day Years Used Date Smoking Tobacco: Former Cigarettes 0 Q uit: 2011 Alcohol Use Standard Drinks/Week Comments Yes 0 (1 standard drink = 0.6 oz pur e alcohol) occ Comments No Sex and Gender Information Value Date Recorded Sex Assigned at Not on file Legal Sex Female 2:02 PM CDT Gender Identity Not on file Sexual Orientation Not on file Last Filed Vital Signs Vital Sign Reading Time Taken Comments Blood Pressure 123/71 05/17/2017 1:00 PM CDT Pulse 71 05/17/2017 11:45 AM CDT Temperature 36.4 C (97.6 F) 05/17/2017 12:00 PM CDT Respiratory Rate 18 05/17/2017 1:00 PM CDT Oxygen Saturation 97% 05/17/2017 1:00 PM CDT Inhaled Oxygen Concentration - - Weight 104 kg (229 lb 4 oz) 05/17/2017 9:20 AM C DT Height 162.6 cm (5' 4) 05/03/2017 11:55 AM CDT Body Mass Index 39.35 05/03/2017 11:55 AM CDT Plan of Treatment Health Maintenance Due Date Last Done Comments DTAP/TDAP/TD VACCINES (1 - Tdap) 1974 BREAST CANCER SCREENING 1995 COLORECTAL SCREENING 2000 Colorectal Cancer Screening 2000 FIT-DNA Q 3 years 2000 FIT/FOBT Q 1 year 2000 Flex Sig/CT Colonography Q 5 years 2000 PNEUMOCOCCAL VACCINE 50+ YEARS (1 of 1 - PCV) 12/26/19 06 ZOSTER VACCINE (1 of 2) 2005 OSTEOPOROSIS SCREENING 2020 INFLUENZA VACCINE (#1) 2025 RSV VACCINE (60+ or ) (1 - 1-dose 75+ series) 2030 Insurance Advance Directives For more information, please contact: [phone] * Full Code (Latest Code Status on File) Date Activated Date Inactivated Comments 05/17/2017 9:50 AM 05/17/2017 3:54 PM * Full Code Date Activated Date Inactivated Comments 05/17/2017 9:23 AM 05/17/2017 9:50 AM Care Teams Emergency Medicine Physician Relationship Specialty Start Date End Date Vannesa Bragg MD [address] [place] [id number] PCP - General Family Practice 05/03/17
--- OUTSIDE RECORDS SUMMARY | 2025-10-10 01:43 | XMS_ITS | Clinical Summary ---
Author Organization [facility] Address [address] [address] Phone Care Team Providers Care Distillery Supervisor Name Role Phone Vannesa Bragg MD Primary Care Provider [phone] Social History Tobacco Use Types Packs/Day Years Used Date Smoking Tobacco: Never Assessed Comments Unknown Sex and Gender Information Value Date Recorded Sex Assigned at Not on file Legal Sex Female 3:20 PM CDT Gender Identity Not on file Sexual Orientation Not on file Plan of Treatment Health Maintenance Due Date Last Done Comments Hepatitis C Virus (HCV) Screening 1955 TdaP Immunization 1955 Cologuard 2000 Colonoscopy 2000 Colorectal Cancer Screening 2000 Immunochemical Fecal Occult Blood 2000 Pneumococcal Immunization (5 0+ years) (1 of 1 - PCV) 2005 Zoster Immunization (1 of 2) 2005 Influenza Immunization (#1) 2025 SARS-COV-2 Immunization (1 - 2023-25 season) 2025 Respiratory Syncytial Virus (RSV) Immunization (Adult) (1 - 1-dose 75+ series) 2030 Hepatitis B Immunization Aged Out No longer eligible based on patient's age to complete this topic Human Papillomavirus (HPV) Immunization Aged Out No longer eligible b ased on patient's age to complete this topic Meningococcal Immunization (ACWY) Aged Out No longer eligible based on patient's age to complete this topic Rotavirus Immunization Aged Out No lo nger eligible based on patient's age to complete this topic Care Teams Distillery Supervisor Relationship Specialty Start Date End Date Vannesa Bragg MD [address] [place] [address] PCP - General Family Medicine 06/27/18
--- OUTSIDE RECORDS SUMMARY | 2025-10-10 01:43 | XMS_ITS | Encounter Summary ---
Author Organization [facility] Address [address] [place] [address] Care Team Providers Care Jordan Man Name Role Phone Vannesa Bragg MD Primary Care Provider [phone] Genaro Mccurdy MD Unavailable [phone] Encounter Details Date Type Department Care Team (Late st Contact Info) Description 09/10/2025 Results Follow-Up [facility] at [address] [place] [address] Latasha Clarke MA Surgical pathology Social History Tobacco Use Types Packs/Day Years Used Date Smoking Tobacco: Former Cigarettes 2 36 1 974 - 2009 Smokeless Tobacco: Never Alcohol Use Standard Drinks/Week Comments Yes 0 (1 standard drink = 0.6 oz pur e alcohol) social Social Connection and Isolation Panel Answer Date Recorded Frequency of Communication with Friends and Fami ly Twice a week 08/13/2025 Frequency of Social Gatherings with Friends and Family Twice a week 08/13/2025 How often do you attend spiritism or confucianist serv ices? Never 08/13/2025 Do you belong to any clubs o r organizations such as spiritism groups, unions, fraternal or athletic groups, or school groups? No 08/13/2025 Attends Club or Organization Meetings Never 08/13/2025 Are you , , di vorced, , never , or living with a partner? 08/13/2025 AUDIT-C Answer Date Recorded Q1: How often do you have a drink containing alc ohol? Monthly or less 08/31/2025 Q2: How many drinks containi ng alcohol do you have on a typical day when you are drinking? 1 or 2 08/31/2025 Q3: How often do you have si x or more drinks on one occasion? Never 08/31/2025 Overall Financial Resource Strain (CARDIA) Answe r [...] Homeless in the Last Year No 2024 [facility] Utilities Answer Date Recorded In the past 12 months has th e [employer], gas, oil, or water company threatened to shut off services in your home? No 08/13/2025 Personal Safety Answer Date Recorded Have you ever been in or are you currently in a harmful physical or emotional relationship or is someone making you feel afraid or unsafe? Denies 08/31/2025 Comments No Sex and Gender Information Value Date Recorded Sex Assigned at Not on file Legal Sex Female 3:44 PM DRY CANS OPERATOR Gender Identity Female 01/13/2021 1:14 PM DRY CANS OPERATOR Sexual Orientation Not on file documented as of this encounter Plan of Treatment Not on file documented as of this encounter Visit Diagnoses Not on filedocumented in this encounter Care Teams Jordan Man Relationship Specialty Start Date End Date Vannesa Bragg MD PCP - General 06/02/12 Genaro Mccurdy MD [address] [place] [address] Consulting Physician Urology 07/27/25 documented as of this encounter
--- OUTSIDE RECORDS SUMMARY | 2025-10-10 01:43 | XMS_ITS | Encounter Summary ---
Author Organization [facility] Address [address] [facility] [address] [place] [address] Phone Care Team Providers Care Justice Court Judge Name Role Phone Vannesa Bragg MD Primary Care Provider [phone] Genaro Mccurdy MD Unavailable Encounter Details Date Type Department Care Team (Late st Contact Info) Description 09/13/2025 Results Follow-Up [facility] Medicine Urology [address] [facility] Medical Office [address] [place] [address] Genaro Mccurdy MD [address] [facility] [place] [address] Urine culture Urine, bladder Social History Tobacco Use Types Packs/Day Years [...] week 08/13/2025 How often do you attend sikh or sikhism serv ices? Never 08/13/2025 Do you belong to any clubs o r organizations such as sikh groups, unions, fraternal or athletic groups, or [...] Homeless in the Last Year No 2024 [facility] Utilities Answer Date Recorded In the past 12 months has th e electric, gas, oil, or water company threatened to shut off services in your home? No 08/13/2025 Personal Safety Answer Date Recorded Have you ever been in or are you currently in a harmful physical or emotional relationship or is someone making you feel afraid or unsafe? Denies 09/17/2025 Comments No Sex and Gender Information Value Date Recorded Sex Assigned at Not on file Legal Sex Female 3:44 PM TRANSPORTATION TECHNICIAN Gender Identity Female 01/13/2021 1:14 PM TRANSPORTATION TECHNICIAN Sexual Orientation Not on file documented as of this encounter Miscellaneous Notes * Result Encounter Note - Genaro Mccurdy MD - 09/13/2025 6:20 PM TRANSPORTATION TECHNICIAN Urine positive for klebsiella. Please start cipro 500 mg BID x14 days, to continue through surgery. Genaro Mccurdy MD SPORTATION TECHNICIAN documented in this encounter Plan of Treatment Not on file documented as of this encounter Visit Diagnoses Not on filedocumented in this encounter Care Teams Justice Court Judge Relationship Specialty Start Date End Date Vannesa Bragg MD PCP - General 06/02/12 Genaro Mccurdy MD [address] [place] [address] Consulting Physician Urology 07/27/25 documented as of this encounter
--- OUTSIDE RECORDS SUMMARY | 2025-10-10 01:43 | XMS_ITS | Encounter Summary ---
Author Organization [facility] Address [address] [place] [address] Phone Care Team Providers Care Visual Developer Name Role Phone Vannesa Bragg MD Primary Care Provider [phone] Genaro Mccurdy MD Unavailable Alanis Gaxiola [facility] Unavailable Encounter Details Date Type Department Care Team (Late st Contact Info) Description 08/22/2025 Results Follow-Up [facility] Cardiology [address] [facility] Advanced Medicine 8th [place] [address] [place] [address] Bharathi Freitas, CAROLYN [address] [facility] [address] [place] [address] Transthoracic Echo (TTE) Complete W Doppler/CF Social History Tobacco Use Types Packs/Day Years [...] week 08/13/2025 How often do you attend faith or rastafari serv ices? Never 08/13/2025 Do you belong to any clubs o r organizations such as faith groups, unions, fraternal or athletic groups, or [...] Homeless in the Last Year No 2024 [facility] Utilities Answer Date Recorded In [...] on file Legal Sex Female 3:44 PM SATIN FINISHER Gender Identity Female 01/13/2021 1:14 PM SATIN FINISHER Sexual Orientation Not on file documented as of this encounter Functional Status * Difference in Last Two Mohamud Scores Answer Date of Assessment Author -1 08/24/2025 1:40 PM CDT Valentina Jo RN * Question Answer Date of Assessment Author MAP (mmHg) 87 08/24/2025 5:20 PM CDT Nati Patel RN * Longoria Fall Risk Question Answer Date of Assessment Author History of Falling 0 08/24/2025 1:40 PM CDT Valentina Jo RN Secondary Diagnosis 15 08/24/2025 1:40 PM CD T Valentina Jo RN Ambulatory Aids 15 08/24/2025 1:40 PM CDT Mi tchellValentina RN Intravenous Therapy/Heparin/Saline Lock 0 08/24/2025 1:40 PM CDT Valentina Jo RN Gait/Transferring 10 08/24/2025 1:40 PM CDT Valentina Jo RN Mental Status 0 08/24/2025 1:40 PM [facility] [place] Fall Risk Score (Score >= 45 places fall precaution order) 40 08/24/2025 1:40 PM CDT Valentina Jo RN Prior Fall Event (Autopopulated from EMR) None found 08/24/2025 1:40 PM CDT Pernell Jo RN * Mohamud Scale Question Answer Date of Assessment Author Sensory Perceptions 4 08/24/2025 1:40 PM CD Valentina Townsend RN Moisture 4 08/24/2025 1:40 PM CDT Valentina Black RN Activity 3 08/24/2025 1:40 PM CDT Valentina Black RN Mobility 3 08/24/2025 1:40 PM CDT Valentina Black RN Nutrition 3 08/24/2025 1:40 PM CDT Valentina Black RN Friction and Shear 3 08/24/2025 1:40 PM CDT Valentina Jo RN Mohamud Scale Score 20 08/24/2025 1:40 PM CDT Valentina Jo RN * Integumentary Question Answer Date of Assessment Author Integumentary (WDL) WDL 08/24/2025 4:55 PM CD T Nati Whitfield RN * Mohamud Scale Question Answer Date of Assessment Author Mohamud Scale Used Mohamud 08/24/2025 1:40 PM CDT Valentina Jo RN documented as of this encounter Mental Status * Question Answer Entry Date Author Level of Consciousness Awake;Alert 4:55 PM CDT Nati Whitfield RN Orientation Oriented X4 (person, place, time, situation) 08/24/2025 4:55 PM CDT Nati Whitfield RN Neuro ([facility]) [facility] 08/24/2025 5:20 PM CDT Nati Whitfield RN documented in this encounter Plan of Treatment Not on file documented as of this encounter Visit Diagnoses Not on filedocumented in this encounter Care Teams Visual Developer Relationship Specialty Start Date End Date Vannesa Bragg MD PCP - General 06/02/12 Genaro Mccurdy MD [address] [facility] [place] [address] Consulting Physician Urology 07/27/25 Alanis Gaxiola CEMENT MIXER DRIVER [address] [facility] [place] [phone] [place] [address] SHOP Outpatient Architectural Draftsperson 08/14/25 09/04/25 documented as of this encounter
--- OUTSIDE RECORDS SUMMARY | 2025-10-10 01:43 | XMS_ITS | Encounter Summary ---
Author Organization [facility] Address [address] [place] [address] Phone Care Team Providers Care Ore Crushing Dust Collector Name Role Phone Vannesa Bragg MD Primary Care Provider [phone] Genaro Mccurdy MD Unavailable Encounter Details Date Type Department Care Team (Late st Contact Info) Description 09/28/2025 Telephone [facility] Medicine Cardiology [address] [facility] Advanced Medicine 8th [place] [address] [place] [address] Gabe Muñoz MD [address] [facility] [address] [place] [address] Social History Tobacco Use Types Packs/Day Years [...] week 08/13/2025 How often do you attend buddhist or jainism serv ices? Never 08/13/2025 Do you belong to any clubs o r organizations such as buddhist groups, unions, fraternal or athletic groups, or [...] Homeless in the Last Year No 2024 [facility] Utilities Answer Date Recorded In the [...] on file Legal Sex Female 3:44 PM BOX OFFICE MANAGER Gender Identity Female 01/13/2021 1:14 PM BOX OFFICE MANAGER Sexual Orientation Not on file documented as of this encounter Miscellaneous Notes * Telephone Encounter - Itzel Jorgensen - 09/28/2025 1:09 PM CST Faxed info OFFICE MANAGER * Telephone Encounter - Nargis Lindquist - 09/28/2025 1:07 PM CST [facility] in [place], [place] calling stating they need 08/07/25 office visit note faxed to [phone] OFFICE MANAGER documented in this encounter Plan of Treatment Not on file documented as of this encounter Visit Diagnoses Not on filedocumented in this encounter Care Teams Ore Crushing Dust Collector Relationship Specialty Start Date End Date Vannesa Bragg MD PCP - General 06/02/12 Genaro Mccurdy MD [address] [place] [address] Consulting Physician Urology 07/27/25 documented as of this encounter
--- OUTSIDE RECORDS SUMMARY | 2025-10-10 01:43 | XMS_ITS | Encounter Summary ---
Author Organization [facility] Address [address] [place] [address] Phone Care Team Providers Care Headhunter Name Role Phone Vannesa Bragg MD Primary Care Provider [phone] Genaro Mccurdy MD Unavailable [phone] Alanis Gaxiola [facility] Unavailable [phone] Reason for Referral * Cardiology (Routine) - Closed Specialty Diagnoses / Procedures Referred By Contac t Referred To Contact Diagnoses History of ischemic cardiomyopathy Coronary artery disease involving [place] coronary artery of [place] heart without angina pectoris Pre-operative cardiovascular examination Procedures Transthoracic Echo (TTE) Complete W Doppler/CF Bharathi Moser NP [address] [facility] [address] [place] [address] Phone: tel: fax: [address] [address] Referral ID Status Reason Start Date Expiration Date Visits Re quested Visits Authorized [id number] Closed 08/20/2025 09/19/2026 1 1 Encounter Details Date Type Department Care Team (Late st Contact Info) Description 08/17/2025 Results Follow-Up [facility] Medicine Cardiology [address] [facility] Advanced Medicine 8th [place] [address] [place] [address] Moser Bharathi Mourane, RETORT UNLOADER [address] [address] Pro B-type natriuretic peptide Social History Tobacco Use Types Packs/Day Years [...] How often do you attend methodist or restorationist serv ices? Never 08/13/2025 Do you belong [...] Homeless in the Last Year No 2024 [facility] Utilities Answer Date Recorded In the past 12 months has th e [employer], gas, oil, or water company threatened to shut off services in your home? No 08/13/2025 Personal Safety Answer Date Recorded Have you ever been in or are you currently in a harmful physical or emotional relationship or is someone making you feel afraid or unsafe? Denies 08/08/2025 Comments No Sex and Gender Information Value Date Recorded Sex Assigned at Not on file Legal Sex Female 3:44 PM DOCUMENT CONTROL CLERK Gender Identity Female 01/13/2021 1:14 PM DOCUMENT CONTROL CLERK Sexual Orientation Not on file documented as of this encounter Plan of Treatment Not on file documented as of this encounter Results * TRANSTHORACIC ECHO (TTE) COMPLETE W DOPPLER/CF W CONTRAST (08/22/2025 11:58 AM CDT) EF Mod BP 63 % CONS SCIMAGE Anatomical Region Laterality Modality Ultrasound 08/22/2025 10:5 1 AM CDT Narrative 08/22/2025 12:32 PM CDT [facility] [place] [address] Transthoracic Echocardiographic Report Patient Name: KRISTEN HERNANDEZ E : 1955 (69y 7m) Sex: F Study Date: 08/22/2025 10:51:01 AM Ht(Inch): 64 Wt(Lb): 160.94 BSA: 1.78 Type Casting Machine Operator: Unruly Holloway RDCS Location: [facility] Order Provider: BHARATHI MOSER Heart Rate: 75 [...] circulatory system, I25.10 Atherosclerotic heart disease of [place] coronary artery without angina pectoris, and Z01.810 [...] LA Length 4C 6.7 cm MV Decel [place] 412 LA Length 2C 6.2 cm MV [...] Procedure Note Walter Jean-Baptiste MD - 08/22/2025 [facility] [place] [address] Transthoracic Echocardiographic Report Patient Name: KRISTEN HERNANDEZ E : 1955 (69y 7m) Sex: F Study Date: 08/22/2025 10:51:01 AM Ht(Inch): 64 Wt(Lb): 160.94 BSA: 1.78 Type Casting Machine Operator: Unruly Holloway RDCS Location: [facility] Order Provider:BHARATHI MOSER Heart Rate: 75 BMI: [...] the circulatory system,I25.10 Atherosclerotic heart disease of [place] coronary artery without anginapectoris, and Z01.810 Encounter [...] LA Length 4C 6.7 cm MV Decel [id number] LA Length 2C 6.2 cm MV Decel [id number] msec [ 104 - 258 ] LA [...] MD 08/22/2025 12:32:28 PM CDT Bharathi Moser RETORT UNLOADER CV ECHO PROCEDURES Final Result documented in this encounter Visit Diagnoses Diagnosis History of ischemic cardiomyopathy- Primary Coronary artery disease involving [place] coronary artery of [place] heart without angina pectoris Pre-operative cardiovascular examination History of ischemic cardiomyopathy Coronary artery disease involving [place] coronary artery of [place] heart without angina pectoris Pre-operative cardiovascular examination documented in this encounter Care Teams Headhunter Relationship Specialty Start Date End Date Vannesa Bragg MD PCP - General 06/02/12 Genaro Mccurdy MD [address] [place] [address] Consulting Physician Urology 07/27/25 Alanis Gaxiola LCSW [address] [facility] ([facility] Mailstop [phone] [place] [address] SHOP Outpatient Insurance Advisor 08/14/25 09/04/25 documented as of this encounter
[2025-10-10 09:58] VITALS: BP 114/81; PULSE 68; RESP 18; TEMP 36.1; O2SAT 98
[2025-10-10] MEDS: LACTATED RINGERS 1,000 ML 150 ML IV CONT (10:10)
--- NOTE | 2025-10-10 10:41 | PM.IMHP2 ---
H&P: HPI History of Present Illness Date/Time: 10/10/25 10:41 Chief Complaint: Nausea Narrative: The patient has been experiencing nausea since the beginning of this year. She has had a complicated hospitalization at [facility], with urosepsis secondary to kidney stones, last urological intervention in September 18. She states that after all these events, her nausea improved but not completely. She denies dysphagia, vomiting, heartburn or regurgitation. She is now referred for EGD. Review of Systems Review of Systems: All systems reviewed & are unremarkable except as noted in HPI and below PMFSH Past Medical History Medical History (Updated 10/10/25 @ 10:42 by Erick Emerson MD) Vitamin D deficiency Hypothyroid KISHA (obstructive sleep apnea) Asthma GERD (gastroesophageal reflux disease) HLD (hyperlipidemia) Post herpetic neuralgia Mild single current episode of major depressive disorder Herpes zoster without complication Fibromyalgia Rosacea Anxiety Obesity Renal calculus or stone Cholelithiases HTN (hypertension) Surgical History Surgical History History of ankle surgery 03/02/24- left ankle ORIF History of skin surgery History of cholecystectomy History of appendectomy History of History of mandibular surgery H/O gastric bypass H/O: hysterectomy Family History Family History Father Patient's father is , Onset Age: 79 Cerebrovascular accident, Onset Age: 79 Hypertension Mother Family history of heart disease in male family member before age 55, Onset Age: 87 Cerebrovascular accident Hypertension Sibling Diabetes mellitus Social History Social History Smoking packs per day: 2 Smoking cigarettes per day: 40.0 Years smoked: 35 Smoking pack-years: 70.00 Smoking status: Former smoker Tobacco type: cigarettes Second hand tobacco smoke exposure: No Smoking end date: 55 Alcohol intake: former Drinks per week: 3 Alcohol use details: 6 BEERS, BOTTLE WINE/WEEK Substance use: current Substance use type: marijuana Last use: 02/25/24 Lack of Transportation: No Lack of Food: Never True Current Housing: I Have Housing Concerned About Future Housing: No Difficulty Paying Gas/Electric Bills: No Difficulty Paying for Meds: No Currently Unemployed: No Education: High School Diploma/GED Difficulty w/ Childcare or Family Care: No Living arrangements: with family Occupation/Education: retired Gender identity (if verbalized by the patient): Female Sexual Orientation (if Verbalized by the Patient): Straight or Heterosexual Spiritual care concerns: No Agree to blood products: Yes Meds Home Medications and Allergies Home Medications ?Medication ?Instructions ?Recorded ?Confirmed ?Type fluticasone propionate 50 2 spray intranasal DAILY #54.6 mL 11/22/19 10/02/25 Rx mcg/actuation nasal spray,suspension cetirizine 10 mg capsule (Zyrtec) 10 mg PO DAILY PRN Congestion 02/18/23 10/02/25 History sertraline 100 mg tablet (Zoloft) 100 mg PO DAILY 03/22/25 10/02/25 History aspirin 81 mg tablet 81 mg PO DAILY 05/28/25 10/02/25 History atorvastatin 40 mg tablet (Lipitor) 40 mg PO QHS 05/28/25 10/02/25 History ticagrelor 90 mg tablet 90 mg PO Q12H 05/28/25 10/10/25 History trazodone 50 mg tablet 25 mg PO QHS PRN sleep 05/28/25 10/02/25 History thiamine HCl (vitamin B1) 100 mg 100 mg PO DAILY #90 tabs 06/08/25 10/02/25 Rx tablet Spiriva Respimat 1.25 2 puff inhalation Q24H #4 grams 07/04/25 10/02/25 Rx mcg/actuation solution for inhalation (tiotropium bromide) albuterol sulfate 90 mcg/actuation 1 - 2 puff inhalation Q4-6H PRN 07/04/25 10/02/25 Rx aerosol inhaler (ProAir HFA) shortness of breath or wheezing #8.5 grams budesonide-formoterol HFA 160 2 puff inhalation Q12H #1 device 07/04/25 10/02/25 Rx mcg-4.5 mcg/actuation aerosol inhaler (Symbicort) levothyroxine 125 mcg tablet 125 mcg PO DAILY #90 tabs 08/23/25 10/02/25 Rx (Synthroid) ondansetron 4 mg disintegrating 4 mg PO Q8H PRN nausea and 08/23/25 10/02/25 Rx tablet vomiting #30 tabs omeprazole 20 mg capsule,delayed 20 mg PO DAILY #90 caps 09/23/25 10/02/25 Rx release acetaminophen 500 mg tablet 1,000 mg PO Q6H PRN pain 10/02/25 10/02/25 History Allergies Allergy/AdvReac Type Severity Reaction Status Date / Time alcohol (From Mastisol Allergy Unknown Rash Verified 10/10/25 09:57 Liquid Adhesive) gum mastic (From Mastisol Allergy Unknown Rash Verified 10/10/25 09:57 Liquid Adhesive) methyl salicylate (From Allergy Unknown Rash Verified 10/10/25 09:57 Mastisol Liquid Adhesive) Penicillins Allergy Unknown HIVES Verified 10/10/25 09:57 storax (From Mastisol Liquid Allergy Unknown Rash Verified 10/10/25 09:57 Adhesive) Vital Signs Vital Signs - 24 hr 10/10/25 09:58 Temperature 97 F L Pulse Rate 68 Respiratory Rate 18 Blood Pressure 114/81 Pulse Oximetry 98 Oxygen Delivery Room Air Exam Const: General: cooperative and healthy appearing Resp: Effort & Inspection: normal respiratory effort and able to speak in complete sentences Auscultation: clear to auscultation bilaterally Cardio: Rate: regular rate Rhythm: regular rhythm GI: Inspection: normal to inspection GI Palp: No No hepatosplenomegaly present Auscultation: normal bowel sounds Rectal Exam: deferred Skin: General skin exam: normal color Psych: Appearance: grossly normal Mental Status: mental status grossly normal Assessment and Plan Assessment and plan (1) Nausea: Code(s): R11.0 - Nausea Status: Acute Assessment and Plan: The patient is deemed a good candidate for the procedure. Consent signed. Will proceed.
--- NOTE | 2025-10-10 10:43 | WPDANESEPPF ---
Anes - Initial Pre Proc Eval Procedure: Operation Date: 10/10/25 11:00 Proposed Procedures p Esophagogastroduodenoscopy - Erick Emerson MD Date/Time: 10/10/25 10:43 Surgeon: Erick Emerson MD Pre Op Diagnosis: Foreign body sensation, throat Patient Data Age: 69 Gender: F Height: 1.63 m Weight: 73.5 kg Last Vital Signs Temp 36.1 C L 10/10/25 09:58 Pulse 68 10/10/25 09:58 Resp 18 10/10/25 09:58 BP 114/81 10/10/25 09:58 Pulse Ox 98 10/10/25 09:58 O2 Del Method Room Air 10/10/25 09:58 Allergies Allergy/AdvReac Type Severity Reaction Status Date / Time alcohol (From Mastisol Allergy Unknown Rash Verified 10/10/25 09:57 Liquid Adhesive) gum mastic (From Mastisol Allergy Unknown Rash Verified 10/10/25 09:57 Liquid Adhesive) methyl salicylate (From Allergy Unknown Rash Verified 10/10/25 09:57 Mastisol Liquid Adhesive) Penicillins Allergy Unknown HIVES Verified 10/10/25 09:57 storax (From Mastisol Liquid Allergy Unknown Rash Verified 10/10/25 09:57 Adhesive) Home Medications ?Medication ?Instructions ?Recorded ?Confirmed ?Type fluticasone propionate 50 2 spray intranasal DAILY #54.6 mL 11/22/19 10/02/25 Rx mcg/actuation nasal spray,suspension cetirizine 10 mg capsule (Zyrtec) 10 mg PO DAILY PRN Congestion 02/18/23 10/02/25 History sertraline 100 mg tablet (Zoloft) 100 mg PO DAILY 03/22/25 10/02/25 History aspirin 81 mg tablet 81 mg PO DAILY 05/28/25 10/02/25 History atorvastatin 40 mg tablet (Lipitor) 40 mg PO QHS 05/28/25 10/02/25 History ticagrelor 90 mg tablet 90 mg PO Q12H 05/28/25 10/10/25 History trazodone 50 mg tablet 25 mg PO QHS PRN sleep 05/28/25 10/02/25 History thiamine HCl (vitamin B1) 100 mg 100 mg PO DAILY #90 tabs 06/08/25 10/02/25 Rx tablet Spiriva Respimat 1.25 2 puff inhalation Q24H #4 grams 07/04/25 10/02/25 Rx mcg/actuation solution for inhalation (tiotropium bromide) albuterol sulfate 90 mcg/actuation 1 - 2 puff inhalation Q4-6H PRN 07/04/25 10/02/25 Rx aerosol inhaler (ProAir HFA) shortness of breath or wheezing #8.5 grams budesonide-formoterol HFA 160 2 puff inhalation Q12H #1 device 07/04/25 10/02/25 Rx mcg-4.5 mcg/actuation aerosol inhaler (Symbicort) levothyroxine 125 mcg tablet 125 mcg PO DAILY #90 tabs 08/23/25 10/02/25 Rx (Synthroid) ondansetron 4 mg disintegrating 4 mg PO Q8H PRN nausea and 08/23/25 10/02/25 Rx tablet vomiting #30 tabs omeprazole 20 mg capsule,delayed 20 mg PO DAILY #90 caps 09/23/25 10/02/25 Rx release acetaminophen 500 mg tablet 1,000 mg PO Q6H PRN pain 10/02/25 10/02/25 History Patient hx anesthesia problems: none Family hx anesthesia problems: none Results Review: All pre-operative results and documents have been reviewed as part of the pre-operative evaluation. [facility] Past Medical History Medical History (Updated 10/10/25 @ 10:42 by Erick Emerson MD) Vitamin D deficiency Hypothyroid KISHA (obstructive sleep apnea) Asthma GERD (gastroesophageal reflux disease) HLD (hyperlipidemia) Post herpetic neuralgia Mild single current episode of major depressive disorder Herpes zoster without complication Fibromyalgia Rosacea Anxiety Obesity Renal calculus or stone Cholelithiases HTN (hypertension) Surgical History Surgical History History of ankle surgery 03/02/24- left ankle ORIF History of skin surgery History of cholecystectomy History of appendectomy History of History of mandibular surgery H/O gastric bypass H/O: hysterectomy Family History Family History Father Patient's father is , Onset Age: 79 Cerebrovascular accident, Onset Age: 79 Hypertension Mother Family history of heart disease in male family member before age 55, Onset Age: 87 Cerebrovascular accident Hypertension Sibling Diabetes mellitus Social History Social History Smoking packs per day: 2 Smoking cigarettes per day: 40.0 Years smoked: 35 Smoking pack-years: 70.00 Smoking status: Former smoker Tobacco type: cigarettes Second hand tobacco smoke exposure: No Smoking end date: 55 Alcohol intake: former Drinks per week: 3 Alcohol use details: 6 BEERS, BOTTLE WINE/WEEK Substance use: current Substance use type: marijuana Last use: 02/25/24 Lack of Transportation: No Lack of Food: Never True Current Housing: I Have Housing Concerned About Future Housing: No Difficulty Paying Gas/Electric Bills: No Difficulty Paying for Meds: No Currently Unemployed: No Education: High School Diploma/GED Difficulty w/ Childcare or Family Care: No Living arrangements: with family Occupation/Education: retired Gender identity (if verbalized by the patient): Female Sexual Orientation (if Verbalized by the Patient): Straight or Heterosexual Spiritual care concerns: No Agree to blood products: Yes Anes - Eval Final PreProcedure Day of Procedure 10/10/25 10:43 Patient weight: overweight Heart: regular rate and rhythm Lungs: clear to auscultation Airway: Mallampati scale class II Neurological: alert and oriented Last oral intake: >/= 8 hours ASA classification: III Emergent: no Anesthetic plan: proceed Anesthesia type and monitoring: general GIVS and standard monitoring Results Review: All pre-operative results and documents have been reviewed as part of the pre-operative evaluation. Informed Consent: The patient's anesthetic plan and its attendant risks and benefits were discussed with the patient/family/POA. Questions were solicited and answers provided to the satisfaction of the patient/family/POA.
--- NOTE | 2025-10-10 10:57 | S_PTH ---
PATIENT: Kristen Hernandez LOC: [facility] U#:[id number] AGE/SX: 69/F ROOM: RE10/10/[address]: Erick Emerson MD : 1955 BED: DIS: 10/10/2025 SPEC #: [id number] RECD: 10/10/25 11:56 STATUS: THOMAS REQ #: [id number] SHANTAL: 10/10/25 10:[address]: Erick Emerson DEPT: [facility] Surgical RECD BY: Juliana Etienne ENTERED: 10/10/25 11:57 SP TYPE: Surgical OTHR DR: Dede Murrell PA-C Tissues: A - Gastric Biopsy Procedures: Hematoxylin and Eosin Stain Gross and Microscopic Level 4
[2025-10-10 10:59] VITALS: BP 119/45; PULSE 71; RESP 20; O2SAT 100
[2025-10-10 11:09] VITALS: BP 136/86; PULSE 62; RESP 21; O2SAT 100
[2025-10-10 11:19] VITALS: BP 132/85; PULSE 60; RESP 22; O2SAT 97
== END 2025-10-10 11:36 | disposition home or self-care (01) ==
PROVIDERS: PCP Student in an Organized Health Care Education/Training Program; Referring Provider Student in an Organized Health Care Education/Training Program; Visit Provider Internal Medicine Gastroenterology
PROC: 0DJ08ZZ Inspection of Upper Intestinal Tract, Via Natural or Artificial Opening Endoscopic (ICD-10-PCS; CPT 43239; principal; 2025-10-10 11:00)
DX: K21.9 Gastro-esophageal reflux disease without esophagitis (principal); E78.5 Hyperlipidemia, unspecified; I10 Essential (primary) hypertension; E55.9 Vitamin D deficiency, unspecified; E03.9 Hypothyroidism, unspecified; G47.33 Obstructive sleep apnea (adult) (pediatric); J45.909 Unspecified asthma, uncomplicated; M79.7 Fibromyalgia; F41.9 Anxiety disorder, unspecified; F32.9 Major depressive disorder, single episode, unspecified; F12.90 Cannabis use, unspecified, uncomplicated; Z79.82 Long term (current) use of aspirin; Z79.02 Long term (current) use of antithrombotics/antiplatelets; Z79.51 Long term (current) use of inhaled steroids; Z98.890 Other specified postprocedural states; Z90.49 Acquired absence of other specified parts of digestive tract; Z98.84 Bariatric surgery status; Z87.891 Personal history of nicotine dependence; Z87.442 Personal history of urinary calculi; Z82.49 Family history of ischemic heart disease and other diseases of the circulatory system
CPT/HCPCS: 43239; 88305; J2003; J2704; J7120